=== PATIENT | female | born 1955 | race Caucasian/White ===

== ENCOUNTER 2018-06-15 15:53 | Outpatient (RCR) | payer MEDICARE, SELFPAY ==
[2018-06-15 21:26] LABS: ALT 26 U/L (12-78); AST 19 U/L (15-37); Albumin 3.1 g/dL (3.4-5.0); Alkaline Phosphatase 93 U/L (46-116); Anion Gap 8.1 mmol/L (3-11); BUN 20 mg/dL (7-18); Bilirubin, Total 0.1 mg/dL (0.2-1.0); CO2 27.9 mmol/L (21.0-32.0); CREATININE 1.12 mg/dL (0.55-1.02); Calcium 8.9 mg/dL (8.5-10.1); Chloride 105 mmol/L (98-107); Estimated GFR 48.82 (mL/min/1.73m2); Glucose 95 mg/dL (70-100); Potassium 4.4 mmol/L (3.5-5.1); Sodium 141 mmol/L (136-145); TSH (W/Ref FT4) 2.68 uIU/mL (0.358-3.74); Total Protein 6.2 g/dL (6.4-8.2)
[2018-06-15 22:04] LABS: Vitamin B12 377 pg/mL (193-986)
== END 2018-06-23 23:59 | disposition home or self-care (01) ==
LOC: NCHCN 15:53
PROVIDERS: PCP Nurse Practitioner Family; Visit Provider Nurse Practitioner Family
DX: F32.9 Major depressive disorder, single episode, unspecified (principal); K58.9 Irritable bowel syndrome, unspecified; I10 Essential (primary) hypertension; J32.9 Chronic sinusitis, unspecified; J30.9 Allergic rhinitis, unspecified; N28.9 Disorder of kidney and ureter, unspecified; J45.20 Mild intermittent asthma, uncomplicated; E66.9 Obesity, unspecified
CPT/HCPCS: 80053; 82607; 83735; 84443

== ENCOUNTER 2018-08-20 11:30 | Outpatient (CLI) | payer MEDICARE, BC, SELFPAY ==
--- NOTE | 2018-08-20 14:20 | DI.RAD_ITS ---
SYMPTOM/DIAGNOSIS: PNEUMONIA LLL, J18.9, COUGH, R05, ASTHMA, J45.20 PA AND LATERAL CHEST: The heart is normal in size. The lungs are clear. The mediastinal structures and pleura appear intact. CONCLUSION: Normal chest. No evidence of acute cardiopulmonary disease.
== END 2018-08-20 11:50 ==
PROVIDERS: PCP Nurse Practitioner Family; Visit Provider Nurse Practitioner Family
DX: R05 Cough (principal); J18.9 Pneumonia, unspecified organism; J45.20 Mild intermittent asthma, uncomplicated
CPT/HCPCS: 71046

== ENCOUNTER → 2018-10-11 09:59 | Outpatient (BNVA) | payer MEDICARE, BC, SELFPAY | PROVIDERS: PCP Nurse Practitioner Family; Referring Provider Nurse Practitioner Family; Visit Provider Student in an Organized Health Care Education/Training Program | DX: M75.101 Unspecified rotator cuff tear or rupture of right shoulder, not specified as traumatic (principal) | CPT/HCPCS: 99212; 99213 ==

== ENCOUNTER → 2018-11-15 14:08 | Outpatient (BNVA) | payer MEDICARE, BC, SELFPAY | PROVIDERS: PCP Nurse Practitioner Family; Referring Provider Nurse Practitioner Family; Visit Provider Student in an Organized Health Care Education/Training Program | DX: M75.101 Unspecified rotator cuff tear or rupture of right shoulder, not specified as traumatic (principal) | CPT/HCPCS: 20610; 99213; J1040 ==

== ENCOUNTER 2018-12-31 11:17 | Outpatient (REF) | payer MEDICARE, BC, SELFPAY ==
[2018-12-31 20:54] LABS: Abs Immature Grans 0.01 k/cumm (0.0-0.09); Absolute Basophil Count 0.02 k/cumm (0.0-0.2); Absolute Eosinophil Count 0.37 k/cumm (0.0-0.7); Absolute Lymphocyte Count 1.38 k/cumm (1.2-3.4); Absolute Monocyte Count 0.67 k/cumm (0.11-0.7); Absolute Neutrophil Count 2.94 k/cumm (1.2-6.7); Basophils % 0.4; Eosinophils % 6.9; HCT 36.3 % (36.0-46.0); HGB 11.2 g/dL (12.0-15.5); Immature Grans % 0.2; Lymphocytes % 25.6; Mean Corp. HGB Concentration 30.9 g/dL (32.0-36.0); Mean Corpuscular Hemoglobin 27.9 pg (27.0-33.0); Mean Corpuscular Volume 90.3 fL (80-95); Mean Platelet Volume 9.5 fL (8.0-11.0); Monocytes % 12.4; Neutrophils % 54.5; Platelet Count 317 x1000/uL (130-400); RBC 4.02 m/cumm (4.00-5.20); RBC Distribution Width 15.2 % (11.7-14.6); White Blood Cell Count 5.39 k/cumm (4.4-10.8)
[2018-12-31 21:15] LABS: Iron 51 ug/dL (50-175); Total Iron Binding Capacity 336 ug/dL (250-450); Transferrin Sat 15 % (15-50)
[2018-12-31 21:30] LABS: ALT 32 U/L (12-78); AST 23 U/L (15-37); Albumin 3.2 g/dL (3.4-5.0); Alkaline Phosphatase 82 U/L (46-116); Anion Gap 9.3 mmol/L (3-11); BUN 13 mg/dL (7-18); Bilirubin, Total 0.2 mg/dL (0.2-1.0); CO2 26.7 mmol/L (21.0-32.0); CREATININE 0.76 mg/dL (0.55-1.02); Calcium 8.6 mg/dL (8.5-10.1); Chloride 106 mmol/L (98-107); Ferritin 24 ng/mL (8-388); Glucose 106 mg/dL (70-100); Potassium 4.4 mmol/L (3.5-5.1); Sodium 142 mmol/L (136-145); TSH (W/Ref FT4) 2.78 uIU/mL (0.358-3.74); Total Protein 6.2 g/dL (6.4-8.2)
== END 2018-12-31 11:37 ==
LOC: NCHCN 11:17
PROVIDERS: PCP Nurse Practitioner Family; Visit Provider Nurse Practitioner Family
DX: R53.83 Other fatigue (principal); R42 Dizziness and giddiness
CPT/HCPCS: 80053; 82728; 83540; 83550; 84443; 85025

== ENCOUNTER 2019-01-18 12:27 | Outpatient (REF) | payer MEDICARE, BC, SELFPAY ==
--- NOTE | 2019-01-18 11:15 | PAPFT_PTH ---
PATIENT: Yuridia Craft LOC: N U#:[id number] AGE/SX: 63/F ROOM: RE01/18/[address]: Ruby Steward MD : [id number] BED: DIS: 01/18/2019 SPEC #: [id number] RECD: 01/18/19 13:02 STATUS: STEFANIE REMichelle #: [id number] SCARLET: 01/18/19 11:[address]: Ruby Steward DEPT: [facility] Cytology RECD BY: Nallely Loyola ENTERED: 01/18/19 13:02 SP TYPE: PAPFT OTHR DR: Meredith Feldman Tissues: 1 - CX/ENDOCX FOR PAP SMEARS Procedures: PAP THIN PREP/UVM Screening HPV DNA PROBE Comments: [id number]
== END 2019-01-18 12:47 ==
LOC: LBN 12:27
PROVIDERS: PCP Nurse Practitioner Family; Visit Provider Obstetrics & Gynecology
DX: Z12.4 Encounter for screening for malignant neoplasm of cervix (principal)
CPT/HCPCS: 88142; 87624

== ENCOUNTER → 2019-01-24 15:19 | Outpatient (BNVA) | payer MEDICARE, BC, SELFPAY | PROVIDERS: PCP Nurse Practitioner Family; Referring Provider Nurse Practitioner Family; Visit Provider Surgery | DX: D64.9 Anemia, unspecified (principal); I10 Essential (primary) hypertension | CPT/HCPCS: 99212; 99213 ==

== ENCOUNTER 2019-02-22 06:04 | Day surgery (SDC) | payer MEDICARE, BC, SELFPAY ==
[2019-02-22 06:24] VITALS: BP 125/82; PULSE 88; RESP 19; TEMP 36.8; O2SAT 97
--- NOTE | 2019-02-22 06:34 | COLE_ITS ---
Date of service: 02/22/19 Time of Service: 07:29 Colonoscopy Report Date of procedure: 02/22/19 Pre-op diagnosis general: Colon Cancer Screening and Anemia Post-op diagnosis procedure note: other (same and diverticulosis) Procedure: Colonoscopy Surgeon: Sintia Naik Anesthesia proc note operative: other (General/ ASA 2/Tricia Abreu CRNA) Estimated blood loss (mL): 0 Pathology: none sent Complications: None Disposition: same day Indications: Mrs. Craft is a pleasant 63 year old with chronic kidney disease and anemia who was seen in the office for a colonoscopy. Risks, benefits and complications have been reviewed. Complications include but are not limited to bleeding, pain, perforation, missed small lesion/polyp, sore throat, aspiration and adverse reaction to the medications. Questions were entertained and answered to their satisfaction and they wished to proceed. No guarantees were given or implied. Prep: Miralax/Dulcolax Procedure Start Time: :29 Procedure End Time: 07:49 Retraction Time: 12 minutes Findings: Mild sigmoid diverticulosis Procedure Description: After informed consent was obtained the patient was taken to the procedure room and placed in a left decubitous position. Monitors were applied and a time out was done. The patients name, date of , procedure, allergies to medications and metal in their body was reviewed. The patient was then sedated. Once sedated and comfortable a rectal exam was done. External exam was normal. Internal exam revealed a normal sphincter tone and no palpable masses. The scope was then introduced and retro-flexed. No internal hemorrhoids were i dentified. There were no masses or polyps noted in the rectum. The scope was then advanced to the cecum without difficulty. The TI and appendiceal orifice were identified. The prep was adequate. The scope was then slowly retracted over 12 minutes back into the rectum. There were mild sigmoid diverticulosis. The scope was removed and the patient was woken up and taken back to Same day surgery in stable condition. The patient tolerated the procedure well and there were no immediate complications. Follow up: The patient should follow up in 10 years unless they develop changes in bowel habits or other new gastrointestinal complaints.
--- NOTE | 2019-02-22 06:40 | W.PM.DSUDISC ---
Discharge Plan Disposition Patient Disposition: HOME Condition: Good Discharge Details Reason For Visit: Colonoscopy Attending Provider: Sintia Naik Primary Care Provider: Meredith Feldman Home Meds and New Rx's Prescriptions: Continued multivitamin [Daily Multi-Vitamin] tablet 1 tab PO DAILY RF: 0 meclizine 12.5 mg tablet 12.5 mg PO BID-TID PRNRF: 0 pantoprazole [Protonix] 40 mg tablet,delayed release (DR/EC) 40 mg PO DAILY Qty: 30 RF: 12 Flovent HFA 110 mcg/actuation HFA aerosol inhaler 2 puff IH BID PRNRF: 0 acetaminophen 325 MG tablet 325 mg PO PRN Qty: 2 RF: 0 lisinopril 30 MG tablet 30 mg PO DAILY AM RF: 0 fluoxetine 40 MG capsule 40 mg PO HS RF: 0 fexofenadine [Cherelle Allergy] 180 MG tablet 180 mg PO PRN PRNRF: 0 mometasone [Nasonex] 17 GM spray,non-aerosol 2 spray Intravesical PRN PRN (Reason: ALLERGIES) RF: 0 omeprazole 20 MG capsule,delayed release(DR/EC) 20 mg PO DAILY RF: 0 cyproheptadine 4 MG tablet 4 mg PO HS RF: 0 Discharge Instructions Instructions: Colonoscopy (DC), Diverticulosis (DC) Additional Instructions: Findings: Mild diverticulosis Follow up: 10 years Please call if you develop: fevers >101.5 Nausea or Vomiting Abdominal pain that is not transient DAY SURGERY UNIT POST COLONOSCOPY INSTRUCTIONS 1. Because there will be medication in your system for the next 24 hours, you may feel a little sleepy. Your coordination will be affected. Therefore: a. Do not drive or operate dangerous equipment for 24 hours. b. Do not drink alcohol beverages for 24 hours (not even beer). c. Plan to go home and rest for the day. 2. Generally there are no restrictions on your activity after a day or so has gone by, but you may feel a bit fatigued for a few days. 3 After you arrive home you may have a light meal and return to a normal diet as you can tolerate it without feeling sick to your stomach. 4. After surgery, you may feel pain or discomfort. This should be only transient, but if it persists please contact your doctor. 5. If there are any questions regarding the findings of your procedure, please feel free to contact your doctor. 6. If you are unable to contact your doctor with a problem, contact the hospital at [phone]. 7. Continue all your regular medications unless directed otherwise. I understand the above instructions and have no questions. Signature of Patient or Responsible Adult Escort Date/Time Name of Responsible Adult Escort Signature of Nurse Date/Time Stand Alone Forms: Vivien Arias (DSU) Activity:: Activity as Tolerated Diet:: high fiber diet Discharge Orders Discharge Orders: Discharge Order (Routine); Ordered 02/22/19 Ordered By: Sintia Naik DS: Diagnosis Discharge Diagnosis (1) S/P colonoscopy: Status: Acute (2) Diverticulosis: Status: Acute
[2019-02-22] MEDS: Lactated Ringers 1,000 ML 120 ML IV (06:47)
[2019-02-22 08:45] VITALS: BP 117/73; PULSE 77; RESP 16; TEMP 36.1; O2SAT 97
== END 2019-02-22 09:15 | disposition home or self-care (01) ==
PROVIDERS: PCP Nurse Practitioner Family; Visit Provider Surgery
PROC: 0DJD8ZZ Inspection of Lower Intestinal Tract, Via Natural or Artificial Opening Endoscopic (ICD-10-PCS; CPT 45378; principal; 2019-02-22 07:30)
DX: Z12.11 Encounter for screening for malignant neoplasm of colon (principal); N18.9 Chronic kidney disease, unspecified; D63.1 Anemia in chronic kidney disease; K57.30 Diverticulosis of large intestine without perforation or abscess without bleeding
CPT/HCPCS: G0121

== ENCOUNTER 2019-04-07 13:55 | Outpatient (CLI) | payer MEDICARE, BC, SELFPAY | END 2019-04-07 14:15 | PROVIDERS: PCP Nurse Practitioner Family; Visit Provider Obstetrics & Gynecology | DX: Z01.818 Encounter for other preprocedural examination (principal) ==

== ENCOUNTER 2019-04-21 12:06 | Outpatient (CLI) | payer MEDICARE, BC, SELFPAY ==
[2019-04-21 12:56] LABS: HCT 36.7 % (36.0-46.0); HGB 11.6 g/dL (12.0-15.5); Mean Corp. HGB Concentration 31.6 g/dL (32.0-36.0); Mean Corpuscular Hemoglobin 28.3 pg (27.0-33.0); Mean Corpuscular Volume 89.5 fL (80-95); Mean Platelet Volume 9.4 fL (8.0-11.0); Platelet Count 401 x1000/uL (130-400); RBC Distribution Width 14.7 % (11.7-14.6); White Blood Cell Count 7.67 k/cumm (4.4-10.8)
[2019-04-21 13:34] LABS: ALT 33 U/L (14-59); AST 18 U/L (15-37); Albumin 3.8 g/dL (3.4-5.0); Alkaline Phosphatase 107 U/L (46-116); Anion Gap 9.8 mmol/L (3-11); BUN 16 mg/dL (7-18); Bilirubin, Total 0.3 mg/dL (0.2-1.0); CO2 27.2 mmol/L (21.0-32.0); CREATININE 0.88 mg/dL (0.55-1.02); Chloride 103 mmol/L (98-107); Glucose 96 mg/dL (70-100); Potassium 4.5 mmol/L (3.5-5.1); Sodium 140 mmol/L (136-145)
== END 2019-04-21 12:26 ==
PROVIDERS: PCP Nurse Practitioner Family; Visit Provider Obstetrics & Gynecology
DX: Z01.818 Encounter for other preprocedural examination (principal); R69 Illness, unspecified
CPT/HCPCS: 36415; 80053; 85027; 86850; 86900; 86901

== ENCOUNTER 2019-04-27 08:01 | Observation (INO) | payer MEDICARE, BC, SELFPAY ==
[2019-04-27] VITALS (13 sets, daily range): BP systolic 97–154; BP diastolic 53–98; PULSE 67–98; RESP 13–20; TEMP 36.2–37; O2SAT 94–100
[2019-04-27] MEDS: Lactated Ringers 1,000 ML 125 ML IV ×3 (09:06→15:50)
[2019-04-27] MEDS: LIDOCAINE/D5W 2,000 MG/500 ML BAG 45 MG IV (10:05)
[2019-04-27] MEDS: CLINDAMYCIN 900 MG/50 ML BAG 50 MG IVPB (10:15)
--- NOTE | 2019-04-27 12:06 | W.PM.HP.N ---
Date of service: 04/27/19 Time of Service: 09:06 Assessment and Plan (1) Cystocele with rectocele: Current visit: Yes Status: Acute 63 yo female presurgical for anterior /posterior colporraphy r/b/a have been discussed including risks of bleeding, infection, injury to bowel or bladder consents signed all questions asked and answered History of Present Illness Chief Complaint: pelvic prolapse Narrative: 63 yo female here for surgery for rectocele and cystocele Review of Systems Review of Systems All systems reviewed & are unremarkable except as noted in HPI and below PFSH Medical History Anemia (Acute) Asthma (Chronic) Cataract (Chronic) Diverticulosis (Acute ~02/22/19) Dizziness (Acute) Fatigue (Acute) GERD (gastroesophageal reflux disease) (Chronic) History of foot fracture (Acute) ORIF with pin History of substance abuse (Chronic) Hypertension (Chronic) IBS (irritable bowel syndrome) (Chronic) Major depression (Chronic) 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) Nephropathy (Chronic) Obesity (Chronic) Pneumonia (Resolved) PTSD (post-traumatic stress disorder) (Chronic) Syncope and collapse (Acute) Surgical History H/O oophorectomy (Acute) History of carpal tunnel release (Acute) History of colonoscopy (Chronic) History of foot surgery (Acute) hammer toe repair History of sinus surgery (Acute) S/P colonoscopy (Acute ~02/22/19) S/P excision of lipoma (Acute) Status post trigger finger release (Acute) Family History Father Cancer Aunt Cancer Mother Heart disease Maternal Cousin Diabetes Social History Smoking/Tobacco Use Status: Never Alcohol Intake: never Drug use: Never Substance use type: does not use Do you feel safe at home: Yes Do you feel safe in your relationship?: Yes Female Reproductive History Menstrual Menopause type: natural Meds Home Medications Medication Instructions Recorded Confirmed Type fexofenadine [Cherelle Allergy] 180 mg PO PRN PRN 12/04/15 04/27/19 History fluoxetine [Prozac] 40 mg PO HS 12/04/15 04/27/19 History lisinopril 30 mg PO DAILY AM 12/04/15 04/27/19 History mometasone [Nasonex] 2 spray INTRANASAL PRN PRN 12/04/15 04/27/19 History acetaminophen 325 mg PO PRN #2 12/18/15 04/27/19 History cyproheptadine 4 mg PO HS 02/08/18 04/27/19 History meclizine 12.5 mg tablet 12.5 mg PO BID-TID PRN 01/18/19 04/27/19 History multivitamin 1 tab PO DAILY 01/18/19 04/27/19 History fluticasone propionate 110 2 puff IH BID PRN 01/24/19 04/27/19 History mcg/actuation HFA aerosol inhaler pantoprazole 40 mg tablet,delayed 40 mg PO DAILY #30 tab 01/24/19 04/27/19 Rx release Allergies Allergy/AdvReac Type Severity Reaction Status Date / Time cefaclor [From Ceclor] Allergy Severe Anaphylaxsi Verified 04/13/19 14:58 s cefuroxime axetil Allergy Severe Anaphylaxsi Verified 04/13/19 14:58 [From Ceftin] s Sulfa (Sulfonamide Allergy Intermediate Hives Verified 04/13/19 14:58 Antibiotics) Exam Narrative Exam Narrative: alert, awake cooperative no acute distress Resp Effort & Inspection: normal respiratory effort Auscultation: clear to auscultation bilaterally Cardio Rate: regular rate Rhythm: regular rhythm Heart Sounds: S1 normal and S2 normal GI Inspection: normal to inspection Palpation: soft and no hepatosplenomegaly External Female Exam: external appearance normal Speculum Exam - Vagina: atrophic vaginal mucosa Speculum Exam - Cervix: normal appearance of the cervix Bimanual Exam- Vagina & Uterus: normal bimanual exam Bimanual Exam- Adnexa, other: normal adnexae, rectocele and cystocele Results Last Vital Signs Temp 36.2 C L 04/27/19 11:53 Pulse 88 04/27/19 11:53 Resp 16 04/27/19 11:53 BP 122/98 H 04/27/19 11:53 Pulse Ox 96 04/27/19 11:53
[2019-04-27] MEDS: HYDROmorphone 2 MG/ML VIAL IVP (12:35)
[2019-04-27] MEDS: Normal Saline Flush 10 ML SYR IV (12:35)
--- NOTE | 2019-04-27 13:05 | ROE_ITS ---
REPORT OF OPERATIVE PROCEDURE DATE OF PROCEDURE April 27, 2019 PREOPERATIVE DIAGNOSES Rectocele and cystocele. POSTOPERATIVE DIAGNOSES Enterocele and rectocele. PROCEDURE Enterocele repair and posterior colporrhaphy. SURGEON Ruby Steward M.D. DIRECTOR OF PATIENT FINANCIAL SERVICES Delmy Anaya M.D. ANESTHESIA General. COMPLICATIONS None. ESTIMATED BLOOD LOSS 100 cc. FLUIDS 1000 cc LR. FINDINGS A Fourth-degree rectocele and enterocele. No cystocele present upon examination under anesthesia. PROCEDURE DESCRIPTION The patient was taken to the Operating Room, where she was properly identified. She was then placed on the Operating Table in a dorsal supine position. General anesthesia was induced without difficulty. Then, she was placed in the dorsal lithotomy position, and prepped and draped in a normal sterile fashion. A Nicole catheter was placed. A formal timeout procedure was then performed confirming patient and procedure. Nicole cath was in situ and her SCDs boots were on. A posterior weighted speculum was then placed in the vagina. There was no evidence of cystocele, so attention was turned to the rectocele portion of the procedure. Using 0.25% Marcaine with epinephrine, a midline subcutaneous injection to the level of the cervix was performed. I transverse incision was made with the scalpel along the hymenal ring. The vaginal epithelium was undermined and opened in the midline to the level above the defect. Allis clamps were used to support the edges. The vagina was then dissected away at the apex of the incision, there was an enterocele sac. Once the complete dissection was performed bilaterally, the enterocele sac was closed with a purse string suture of #2-0 Vicryl x2. The puborectal fascia was reapproximated with two layers of #2-0 Vicryl in an interrupted fashion. The vaginal posterior epithelium was trimmed and the vagina was closed with #0-Vicryl in interrupted fashion. A zrublk-sm-fgjje suture of #0- Vicryl was placed to support the peroneal body and the skin was closed in a subcuticular fashion. Hemostasis was confirmed. The Nicloe was left in situ. The vaginal pack was impregnated with Premarin cream and placed. The patient was awakened and taken to the Recovery Room in stable condition. Sponge, lap, needle and instrument counts were correct x2.
--- NOTE | 2019-04-27 14:02 | NUR.NOTE ---
arrived in room 306 via stretcher from PACU.Pt sleepy but arouses easily. IV of LR in fusing at 125 cc/hr via L periph line in L hand, 2nd IV site present in l antecubital space.Kanika pad in place scant drainage present. Nicole cath present and SCD's bilaterally. Pt has a dry hacking cough , states it feels like I have something stuck in there, sips of water given, pt states that it helps.denies any pain at present.Nursing Note:
[2019-04-27] MEDS: Ketorolac 30 MG/ML VIAL IVP ×2 (15:31→21:44)
[2019-04-27] MEDS: oxyCODONE 5 mg/Acetaminophen 325 mg TAB PO ×2 (15:32→21:50)
[2019-04-27] MEDS: Acetaminophen 500 MG TAB PO (15:32)
[2019-04-27] MEDS: Docusate Sodium 100 MG CAP PO (21:01)
[2019-04-27] MEDS: Cyproheptadine 4 MG TAB PO (21:43)
[2019-04-28] VITALS: BP 108/76; PULSE 71; RESP 18; TEMP 37
[2019-04-28] MEDS: Ketorolac 30 MG/ML VIAL IVP ×2 (03:58→10:39)
[2019-04-28 04:17] VITALS: BP 102/66; PULSE 64; TEMP 36.5
[2019-04-28] MEDS: oxyCODONE 5 mg/Acetaminophen 325 mg TAB PO ×2 (04:46→08:28)
[2019-04-28] MEDS: Lactated Ringers 1,000 ML 125 ML IV (05:47)
[2019-04-28 07:30] VITALS: BP 114/64; PULSE 69; RESP 16; TEMP 36.9; O2SAT 96
[2019-04-28] MEDS: Lisinopril 10 MG TAB 30 MG PO (08:22)
[2019-04-28] MEDS: Pantoprazole 40 MG TABCR PO (08:24)
[2019-04-28] MEDS: Docusate Sodium 100 MG CAP PO (08:24)
[2019-04-28] MEDS: Multivitamin TAB 1 TAB PO (08:25)
[2019-04-28] MEDS: Normal Saline Flush 10 ML SYR IV (10:45)
--- NOTE | 2019-04-28 14:16 | DSE_ITS ---
Date of service: 04/28/19 Time of Service: 14:16 DS: Diagnosis Discharge Diagnosis (1) Cystocele with rectocele: Status: Acute (2) Enterocele: Status: Acute Discharge Plan Disposition Patient Disposition: HOME Condition: Stable Discharge Details Admit Date/Time: 04/27/19 08:01 Admit Provider: Ruby Steward Attending Provider: Ruby Steward [facility]: Admited observation after Posterior and Enterocele repair without complication. Postoperative course Day #1 vaginal pack and lpummer removed and she was able to void on own. No bleeding. Pain well controlled and tolerating regular diet Discharge home in stable condition Home Meds and New Rx's Prescriptions: New oxycodone-acetaminophen 5-325 mg Tablet 1 tab PO Q4H PRN PRNQty: 10 RF: 0 docusate sodium [Colace] 100 mg Capsule 100 mg PO BID Qty: 90 RF: 1 Continued multivitamin [Daily Multi-Vitamin] tablet 1 tab PO DAILY RF: 0 meclizine 12.5 mg tablet 12.5 mg PO BID-TID PRNRF: 0 pantoprazole [Protonix] 40 mg tablet,delayed release (DR/EC) 40 mg PO DAILY Qty: 30 RF: 12 Flovent HFA 110 mcg/actuation HFA aerosol inhaler 2 puff IH BID PRNRF: 0 acetaminophen 325 MG tablet 325 mg PO PRN Qty: 2 RF: 0 lisinopril 30 MG tablet 30 mg PO DAILY AM RF: 0 fluoxetine [Prozac] 40 MG capsule 40 mg PO HS RF: 0 fexofenadine [Cherelle Allergy] 180 MG tablet 180 mg PO PRN PRNRF: 0 mometasone [Nasonex] 17 GM spray,non-aerosol 2 spray intranasal PRN PRN (Reason: ALLERGIES) RF: 0 cyproheptadine 4 MG tablet 4 mg PO HS RF: 0 Discharge Instructions Stand Alone Forms: DSU Post Gynecology Surgery, DSU Post op Instructions Referrals: Ruby Steward [ [facility] STAFF PHYSICIAN] - 05/12/19 1:20 pm (2 weeks) Activity:: Activity as Tolerated Equipment/Supplies:: No Equipment Needed Diet:: As Tolerated Discharge Orders Discharge Orders: Discharge Order (Routine); Ordered 04/28/19 Ordered By: Ruby Steward DS: Summary Status at Discharge Cognitive/behavioral status at discharge: A+O stable Functional status at discharge: independent ambulation Time Spent with Patient Greater than 30 minutes Exam Narrative Exam Narrative: a=o pain controlled with po pain med Chest Chest: normal inspection of the chest Resp Effort & Inspection: normal respiratory effort Auscultation: clear to auscultation bilaterally GI Inspection: normal to inspection Percussion: normal to percussion Auscultation: normal bowel sounds Other: minimal vaginal bleeding voiding on own DS: Data Vitals/I&O Vitals and I&O: Vital Signs Temperature 36.9 C 04/28/19 07:30 Temperature Source Oral 04/28/19 07:30 Pulse 69 04/28/19 07:30 Pulse Rhythm Regular 04/28/19 07:30 Respiratory Rate 16 04/28/19 07:30 Respiratory Effort 04/28/19 07:30 Respiratory Depth Normal 04/28/19 07:30 Respiratory Pattern Normal 04/28/19 07:30 Blood Pressure 114/64 04/28/19 07:30 Pulse Oximetry 96 04/28/19 07:30 Respiratory End-tidal CO2 44 04/27/19 12:47 Oxygen Delivery Method Room Air 04/28/19 07:30 Oxygen Flow Rate 0 04/28/19 07:30 Pain Level 6 04/28/19 10:39 Intake & Output 04/27/19 04/28/19 04/28/19 23:59 11:59 23:59 Intake Total 1812.5 / 2862.5 Output Total 300 / 500 700 / 700 Balance 1512.5 / 2362.5 -700 / -700 Intake: IV 1812.5 / 2862.5 Output: Urine 300 / 400 700 / 700 Other: Urine Color Pale Pale Yellow Yellow Urine Appearance Clear Clear Comment NOT EMPTIED IN PACU Emesis Description [facility] History Anemia (Acute) Asthma (Chronic) Cataract (Chronic) Diverticulosis (Acute ~02/22/19) Dizziness (Acute) Fatigue (Acute) GERD (gastroesophageal reflux disease) (Chronic) History of foot fracture (Acute) ORIF with pin History of substance abuse (Chronic) Hypertension (Chronic) IBS (irritable bowel syndrome) (Chronic) Major depression (Chronic) 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) Nephropathy (Chronic) Obesity (Chronic) Pneumonia (Resolved) PTSD (post-traumatic stress disorder) (Chronic) Syncope and collapse (Acute) Surgical History H/O oophorectomy (Acute) History of carpal tunnel release (Acute) History of colonoscopy (Chronic) History of foot surgery (Acute) hammer toe repair History of sinus surgery (Acute) S/P colonoscopy (Acute ~02/22/19) S/P excision of lipoma (Acute) Status post trigger finger release (Acute) Family History Father Cancer Aunt Cancer Mother Heart disease Maternal Cousin Diabetes Social History Smoking/Tobacco Use Status: Never Alcohol Intake: never Drug use: Never Substance use type: does not use Do you feel safe at home: Yes Do you feel safe in your relationship?: Yes Female Reproductive History Menstrual Menopause type: natural
== END 2019-04-28 14:45 | disposition home or self-care (01) ==
LOC: PDS 12:05 → OBS 12:06
PROVIDERS: Admitting Provider Obstetrics & Gynecology; PCP Nurse Practitioner Family; Visit Provider Obstetrics & Gynecology
PROC: 0JQC0ZZ Repair Pelvic Region Subcutaneous Tissue and Fascia, Open Approach (ICD-10-PCS; CPT 57260; principal; 2019-04-27 09:00)
DX: N81.6 Rectocele (principal); N81.5 Vaginal enterocele; K21.9 Gastro-esophageal reflux disease without esophagitis; I10 Essential (primary) hypertension; F32.9 Major depressive disorder, single episode, unspecified
CPT/HCPCS: 57250; 57268; 99239; NC; J0131; J1100; J1200; J1885; J2001; J2250; J2405; J3010

== ENCOUNTER 2019-06-17 18:02 | Outpatient (REF) | payer MEDICARE, BC, SELFPAY ==
[2019-06-17 18:06] LABS: Bilirubin Negative (Negative); Blood Small (Negative); Clarity Clear (Clear); Glucose Negative (Negative); Ketones Negative (Negative); Leukocyte Esterase Trace (Negative); Nitrite Negative (Negative); Urobilinogen 0.2 EU/dL (Up TO 0.2)
[2019-06-17 18:51] LABS: Bacteria Moderate HPF (Negative); C & S Indicated? C&S Done As Ordered; Casts Negative LPF (Negative); Crystals Negative HPF (Negative); Epithelial Cells Few HPF (Negative); Mucus Negative (Negative); Other Cells Negative (Negative)
== END 2019-06-17 18:22 ==
LOC: LBN 18:02
PROVIDERS: PCP Nurse Practitioner Family; Visit Provider Obstetrics & Gynecology
DX: N39.41 Urge incontinence (principal); N81.10 Cystocele, unspecified; N81.6 Rectocele
CPT/HCPCS: 87077; 81003; 81015; 87086

== ENCOUNTER 2019-06-30 03:02 | Outpatient (CLI) | payer MEDICARE, BC, SELFPAY ==
--- NOTE | 2019-06-30 11:34 | DI.MAMMO_ITS ---
EXAM: MG MAMMO SCREENING CLINICAL HISTORY: screening Z12.31 TECHNIQUE: Mammograms were interpreted according to the usual protocol including computer analysis w [employer] CAD system, tomosynthesis and C-view imaging. COMPARISON: April 2017 FINDINGS: The breasts are heterogeneously dense with multiple areas of markedly asymmetric radiodensity. Ross rison with previous examinations including April 2017 shows no gross interval change in appearanc e. There are coarse macrocalcifications of both breasts, no suspicious clumped microcalcification se en. IMPRESSION: No specific evidence of malignancy at this time. Routine screening examinations are suggested at year ly intervals in this age group according to the ACS ACR guidelines. Category 1, breast density catego ry C. BI-RADS Cat 1 - Negative Breast Density - Category C - Heterogeneously dense
== END 2019-06-30 03:22 ==
PROVIDERS: PCP Nurse Practitioner Family; Visit Provider Obstetrics & Gynecology
DX: Z12.31 Encounter for screening mammogram for malignant neoplasm of breast (principal)
CPT/HCPCS: 77063; 77067

== ENCOUNTER 2019-07-06 06:57 | Day surgery (SDC) | payer MEDICARE, BC, SELFPAY ==
[2019-07-06] VITALS (8 sets, daily range): BP systolic 146–190; BP diastolic 66–92; PULSE 70–83; RESP 16–20; TEMP 36.1–36.7; O2SAT 94–99
--- NOTE | 2019-07-06 07:32 | W.PREOPHP ---
Documented by User: Tsering Shakeel 07/06/19 07:40 Assessment and Plan Assessment and plan (1) Right rotator cuff tear: Status: Acute (2) Bilateral acromioclavicular joint arthritis: Status: Acute Assessment and plan: Examination was completed by Dr. Hurley. Plan: Educated patient on surgery covering surgical technique, recovery process, benefits and risks including but not limited to risk of infection, blood clot, damage to soft tissue/blood vessels/nerves in detail. After discussion patient gives verbal understanding of risks and elects to proceed with scheduling surgery. Patient had opportunity to have questions answered to their satisfaction. Patient will continue to be scheduled for right arthroscopic RTC repair and associated surgical procedures if needed with Dr. Hurley. History of Present Illness Narrative: Ms. Craft is a 64-year-old [id number] female presents for scheduled right arthroscopic rotator cuff repair with Dr. Hurley. She has been seen in clinic several times and has previously scheduled surgery on two occasions. Unfortunately, she canceled surgery due to her 's health. Patient has been having right shoulder pain for over two years. Pain is located along superior lateral aspect of her right shoulder. She also reports decreased strength of her right arm from restricting the use of her arm due to pain. Pain is aggravated when trying to last picker her grandson, getting dressed, putting dishes away from the bottom shelf of her upper cabinets and when laying on her side. Patient reports that she frequently wakes up in the middle the night due to pain if she is rolling her right shoulder. She has been adapting activity by sleeping on her back, using her left arm to last picker her grandchild and adapting how she gets dressed. Patient has also received steroid injections in orthopedic clinic. She recalls the first injection provided significant pain relief but unfortunately the additional injection did not. Previously she had attended physical therapy without symptomatic improvement. Due to discomfort patient has not continued with PT recommended exercises. Patient has been managing symptoms at home by taking Tylenol twice daily which helps to slightly reduce as well as occasionally apply massage over her shoulder.Due to her symptoms she was offered surgery and elected to proceed. Review of Systems Cardiovascular Cardiovascular: Denies chest pain, Denies dyspnea and Denies dyspnea on exertion Respiratory Respiratory: Denies dyspnea and Denies dyspnea on exertion FORMERLY [facility], LATER [facility] Medical History (Updated 07/06/19 @ 07:24 by Diane Lr) Anemia (Acute) Asthma (Chronic) Cataract (Chronic) Diverticulosis (Acute ~02/22/19) Dizziness (Acute) Fatigue (Acute) GERD (gastroesophageal reflux disease) (Chronic) History of cystocele (Acute) repair History of foot fracture (Acute) ORIF with pin History of substance abuse (Chronic) Hypertension (Chronic) IBS (irritable bowel syndrome) (Chronic) Major depression (Chronic) 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) Nephropathy (Chronic) Obesity (Chronic) Pneumonia (Resolved) PTSD (post-traumatic stress disorder) (Chronic) Syncope and collapse (Acute) Surgical History H/O oophorectomy (Acute) History of carpal tunnel release (Acute) History of colonoscopy (Chronic) History of foot surgery (Acute) hammer toe repair History of sinus surgery (Acute) S/P colonoscopy (Acute ~02/22/19) S/P excision of lipoma (Acute) Status post trigger finger release (Acute) Social History (Updated 06/17/19 @ 14:44 by Wen Patino RN) Smoking/Tobacco Use Status: Never Alcohol Intake: never Drug use: Never Substance use type: does not use Seatbelt use: always Do you feel safe at home: Yes Do you feel safe in your relationship?: Yes Female Reproductive History Menstrual Menopause type: natural Meds Home Medications and Allergies Home Medications Medication Instructions Recorded Confirmed Type fexofenadine [Cherelle Allergy] 180 mg PO PRN PRN 12/04/15 07/06/19 History fluoxetine [Prozac] 40 mg PO HS 12/04/15 07/06/19 History lisinopril 30 mg PO DAILY AM 12/04/15 07/06/19 History mometasone [Nasonex] 2 spray INTRANASAL PRN PRN 12/04/15 07/06/19 History acetaminophen 325 mg PO PRN #2 12/18/15 07/06/19 History cyproheptadine 4 mg PO HS 02/08/18 07/06/19 History meclizine 12.5 mg tablet 12.5 mg PO BID-TID PRN 01/18/19 07/06/19 History multivitamin 1 tab PO DAILY 01/18/19 07/06/19 History fluticasone propionate 110 2 puff IH BID PRN 01/24/19 07/06/19 History mcg/actuation HFA aerosol inhaler pantoprazole 40 mg tablet,delayed 40 mg PO DAILY #30 tab 01/24/19 07/06/19 Rx release docusate sodium [Colace] 100 mg PO BID #90 cap 04/28/19 07/06/19 Rx Allergies Allergy/AdvReac Type Severity Reaction Status Date / Time cefaclor [From Ceclor] Allergy Severe Anaphylaxsi Verified 07/06/19 07:18 s cefuroxime axetil Allergy Severe Anaphylaxsi Verified 07/06/19 07:18 [From Ceftin] s Sulfa (Sulfonamide Allergy Intermediate Hives Verified 07/06/19 07:18 Antibiotics) Exam Const General: cooperative and healthy appearing Resp Effort & Inspection: normal respiratory effort, able to speak in complete sentences and no audible wheezes Auscultation: clear to auscultation bilaterally, no rales, no rhonchi and no wheezes Cardio Heart Sounds: S1 normal, S2 normal and no murmurs Documented by User: Sina Hurley MD 07/06/19 09:26 [facility] LAT[facility] Medical History (Updated 07/06/19 @ 07:24 by Diane Lr) Anemia (Acute) Asthma (Chronic) Cataract (Chronic) Diverticulosis (Acute ~02/22/19) Dizziness (Acute) Fatigue (Acute) GERD (gastroesophageal reflux disease) (Chronic) History of cystocele (Acute) repair History of foot fracture (Acute) ORIF with pin History of substance abuse (Chronic) Hypertension (Chronic) IBS (irritable bowel syndrome) (Chronic) Major depression (Chronic) 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) Nephropathy (Chronic) Obesity (Chronic) Pneumonia (Resolved) PTSD (post-traumatic stress disorder) (Chronic) Syncope and collapse (Acute) Surgical History H/O oophorectomy (Acute) History of carpal tunnel release (Acute) History of colonoscopy (Chronic) History of foot surgery (Acute) hammer toe repair History of sinus surgery (Acute) S/P colonoscopy (Acute ~02/22/19) S/P excision of lipoma (Acute) Status post trigger finger release (Acute) Social History (Updated 06/17/19 @ 14:44 by Wen Patino RN) Smoking/Tobacco Use Status: Never Alcohol Intake: never Drug use: Never Substance use type: does not use Seatbelt use: always Do you feel safe at home: Yes Do you feel safe in your relationship?: Yes Meds Home Medications and Allergies Home Medications Medication Instructions Recorded Confirmed Type fexofenadine [Cherelle Allergy] 180 mg PO PRN PRN 12/04/15 07/06/19 History fluoxetine [Prozac] 40 mg PO HS 12/04/15 07/06/19 History lisinopril 30 mg PO DAILY AM 12/04/15 07/06/19 History mometasone [Nasonex] 2 spray INTRANASAL PRN PRN 12/04/15 07/06/19 History acetaminophen 325 mg PO PRN #2 12/18/15 07/06/19 History cyproheptadine 4 mg PO HS 02/08/18 07/06/19 History meclizine 12.5 mg tablet 12.5 mg PO BID-TID PRN 01/18/19 07/06/19 History multivitamin 1 tab PO DAILY 01/18/19 07/06/19 History fluticasone propionate 110 2 puff IH BID PRN 01/24/19 07/06/19 History mcg/actuation HFA aerosol inhaler pantoprazole 40 mg tablet,delayed 40 mg PO DAILY #30 tab 01/24/19 07/06/19 Rx release docusate sodium [Colace] 100 mg PO BID #90 cap 04/28/19 07/06/19 Rx Allergies Allergy/AdvReac Type Severity Reaction Status Date / Time cefaclor [From Ceclor] Allergy Severe Anaphylaxsi Verified 07/06/19 07:18 s cefuroxime axetil Allergy Severe Anaphylaxsi Verified 07/06/19 07:18 [From Ceftin] s Sulfa (Sulfonamide Allergy Intermediate Hives Verified 07/06/19 07:18 Antibiotics)
[2019-07-06] MEDS: Lactated Ringers 1,000 ML 80 ML IV ×2 (07:55→12:30)
[2019-07-06] MEDS: Bupivacaine 0.5% Pres-Free 30 ML VIAL (08:50)
[2019-07-06] MEDS: Bupivacaine LIPOSOME/PF 133 MG/10 ML VIAL IJ (08:50)
--- NOTE | 2019-07-06 09:57 | W.PM.DSUDISC ---
Documented by User: Tsering Beckford 07/06/19 10:04 Discharge Plan Disposition Patient Disposition: HOME Condition: Good Discharge Details Reason For Visit: Right rotator cuff tear; Right AC joint arthritis Attending Provider: Sina Hurley Primary Care Provider: Meredith Feldman Home Meds and New Rx's Prescriptions: New acetaminophen 500 mg tablet 500 mg PO Q6H PRN (Reason: pain) Qty: 60 RF: 2 ibuprofen 600 mg tablet 600 mg PO TID PRN (Reason: pain) Qty: 60 RF: 2 oxycodone 5 mg tablet 5 mg PO Q6H PRN (Reason: severe post-operative pain) Qty: 15 RF: 0 Continued multivitamin [Daily Multi-Vitamin] tablet 1 tab PO DAILY RF: 0 meclizine 12.5 mg tablet 12.5 mg PO BID-TID PRNRF: 0 pantoprazole [Protonix] 40 mg tablet,delayed release (DR/EC) 40 mg PO DAILY Qty: 30 RF: 12 Flovent HFA 110 mcg/actuation HFA aerosol inhaler 2 puff IH BID PRNRF: 0 lisinopril 30 MG tablet 30 mg PO DAILY AM RF: 0 fluoxetine [Prozac] 40 MG capsule 40 mg PO HS RF: 0 fexofenadine [Cherelle Allergy] 180 MG tablet 180 mg PO PRN PRNRF: 0 mometasone [Nasonex] 17 GM spray,non-aerosol 2 spray intranasal PRN PRN (Reason: ALLERGIES) RF: 0 cyproheptadine 4 MG tablet 4 mg PO HS RF: 0 docusate sodium [Colace] 100 mg Capsule 100 mg PO BID Qty: 90 RF: 1 Discontinued acetaminophen 325 MG tablet 325 mg PO PRN Qty: 2 RF: 0 Discharge Instructions Stand Alone Forms: Anes.Nerve Block Instructions, Mei Montanez w/RCR, DSU Post op Instructions, Vivien Arias (DSU) Referrals: Sina Hurley MD [ [facility] STAFF PHYSICIAN] - Equipment/Supplies: Sling Activity:: Activity as Tolerated Remove Dressings/Wound Care:: 72 hours Shower/Bathe:: 72 hours Diet:: As Tolerated Discharge Orders Discharge Orders: Discharge Order (Routine); Ordered 07/06/19 Ordered By: Tsering Beckford Discharge Data Discharge Date/Time-TO BE ENTERED AT DEPARTURE: 07/06/19 15:54 DS: Diagnosis Discharge Diagnosis (1) Right rotator cuff tear: Status: Chronic (2) Bilateral acromioclavicular joint arthritis: Status: Chronic Documented by User: Sina Hurley MD 07/06/19 17:44 Discharge Plan Disposition Patient Disposition: HOME Condition: Good Discharge Details Reason For Visit: Right rotator cuff tear; Right AC joint arthritis Attending Provider: Sina Hurley Primary Care Provider: Meredith Feldman Home Meds and New Rx's Prescriptions: New acetaminophen 500 mg tablet 500 mg PO Q6H PRN (Reason: pain) Qty: 60 RF: 2 ibuprofen 600 mg tablet 600 mg PO TID PRN (Reason: pain) Qty: 60 RF: 2 oxycodone 5 mg tablet 5 mg PO Q6H PRN (Reason: severe post-operative pain) Qty: 15 RF: 0 Continued multivitamin [Daily Multi-Vitamin] tablet 1 tab PO DAILY RF: 0 meclizine 12.5 mg tablet 12.5 mg PO BID-TID PRNRF: 0 pantoprazole [Protonix] 40 mg tablet,delayed release (DR/EC) 40 mg PO DAILY Qty: 30 RF: 12 Flovent HFA 110 mcg/actuation HFA aerosol inhaler 2 puff IH BID PRNRF: 0 lisinopril 30 MG tablet 30 mg PO DAILY AM RF: 0 fluoxetine [Prozac] 40 MG capsule 40 mg PO HS RF: 0 fexofenadine [Cherelle Allergy] 180 MG tablet 180 mg PO PRN PRNRF: 0 mometasone [Nasonex] 17 GM spray,non-aerosol 2 spray intranasal PRN PRN (Reason: ALLERGIES) RF: 0 cyproheptadine 4 MG tablet 4 mg PO HS RF: 0 docusate sodium [Colace] 100 mg Capsule 100 mg PO BID Qty: 90 RF: 1 Discontinued acetaminophen 325 MG tablet 325 mg PO PRN Qty: 2 RF: 0 Discharge Instructions Stand Alone Forms: Anes.Nerve Block Instructions, Mei hall/AMANDA, DSU Post op Instructions, Vivien Arias (DSU) Referrals: Sina Hurley MD [ [facility] STAFF PHYSICIAN] - Equipment/Supplies: Sling Activity:: Activity as Tolerated Remove Dressings/Wound Care:: 72 hours Shower/Bathe:: 72 hours Diet:: As Tolerated Discharge Orders Discharge Orders: Discharge Order (Routine); Ordered 07/06/19 Ordered By: Tsering Beckford Discharge Data Discharge Date/Time-TO BE ENTERED AT DEPARTURE: 07/06/19 15:54
[2019-07-06] MEDS: CLINDAMYCIN 600 MG/50 ML BAG 100 MG IVPB (10:48)
[2019-07-06] MEDS: EPINEPHrine 1 MG/ML AMP pres-free (11:31)
--- NOTE | 2019-07-06 15:00 | W.PM.OP ---
Date of service: 07/06/19 Time of Service: 13:00 Operative Note Operative Note DATE OF PROCEDURE: 07/06/19 PRE-OP DIAGNOSIS: Right Rotator Cuff Tear, Right Biceps Tendinitis, Right AC Arthritis POST-OP DIAGNOSIS: same PROCEDURE: - Mini-Open Distal Clavicle Excision - Arthroscopic Rotator Cuff Repair - Biceps Tenotomy - Subacromial Debridement with Acromioplasty SURGEON: Sina Hurley TRADING ASSISTANT: Tsering Beckford ANESTHESIA: GETA and regional ESTIMATED BLOOD LOSS: 0 PATHOLOGY: none sent COMPLICATIONS: None Patient was transported to: PACU Patient's condition: stable Indications: I have seen Yuridia in clinic for a painful shoulder. Pathology was confirmed based on MRI and exam findings. Nonoperative measures were exhausted but disability and pain persisted. I discussed shoulder arthroscopy and procedures. I reviewed the risks of the procedures to include, but not limited to, bleeding, infection, pain, stiffness, damage to nerves or vessels, recurrence, hardware failure, blood clot. Despite these risks, the patient elected to proceed. Findings: There were signs of arthrosis of the distal clavicle; a 1cm wedge was resected A diagnostic arthroscopy was performed with the following findings: Articular Side - Glenohumeral Joint: Some Grade I/II central glenoid changes. - Labrum: Fraying of the labrum from 12 to 3 o'clock. - Cuff: Partial tearing of the upper subscapularis, complete tear involving most of supraspinatus and infraspinatus. - Biceps: Inflammatory changes throughout intraarticular portion. Subacromial Side - Bursal: Thickened bursa - Rotator Cuff: Complete supra and infra tear - Anterolateral spur Procedure Description: Yuridia was greeted in the preoperative holding area where the correct side was identified and marked. The consent was reviewed with the patient and signed. The history and physical was updated. All questions were answered. Yuridia was taken back to the PACU for administration of an intrascalene nerve block. Yuridia was then taken to the operating room. The patient was placed into the supine position on the operating room table. A general anesthetic was administered. Yuridia was then positioned in the beach chair position. All bony prominences were well padded. The head was placed in a foam cigar head puncher in a neutral position. Prophylactic antibiotics in the form of clindamycin were administered. The right arm/shoulder was then prepped with Chloraprep and draped in a standard fashion with stockinette and shoulder drape. A timeout to confirm correct identity, side and site, procedure, allergies, anesthesia, and medical concerns was performed. The arm was placed into a pneumatic vanegas, [id number]. The distal clavicle was approached through a 2 and half centimeter incision within Klaus's lines. This was made overlying the AC joint. The skin was incised sharply. The deeper tissues dissected with electrocautery. The clavipectoral fascia was identified and incised longitudinally off of the distal clavicle and onto the acromion. This was reflected subperiosteally to expose the distal clavicle and the AC joint. With adequate exposure a 1 cm bony resection was made using an oscillating saw. This is angled posteriorly to avoid any posterior impingement. Once it was fully resected, it was inspected to make sure it is of adequate width. A rasp was used to smooth the bony edges inferiorly and posteriorly primarily. A small amount of bone wax was placed on the end of the distal clavicle. The wound was thoroughly irrigated. There is no active bleeding. The clavipectoral fascia was then closed with a 0 Vicryl in a watertight fashion. The subcutaneous tissues were then reapproximated with a 2-0 Vicryl. The shoulder arthroscopy was then performed. The glenohumeral joint was injected with 20 cc of normal saline with good flow back. A standard posterior portal was made and the joint was entered atraumatically with a blunt arthroscope. Once inside we had good visualization of the structures of the glenohumeral joint. An anterior portal was established with spinal needle localization. A 6.5 mm cannula was inserted. A probe was then used to perform a diagnostic arthroscopy. There is noted to be some mild grade I/II chondromalacia of the central glenoid and the superior humeral head. The labrum was frayed superiorly and anteriorly but not unstable. There were no loose bodies in the inferior pouch. The superior rotator cuff was completely torn involving all the supra spinatus and a portion of infraspinatus. The biceps tendon had inflammatory changes throughout its course within the joint. The subscapularis was partially torn off of the lesser tuberosity with exposed footprint. Using a shaver and letter cautery the labrum was debrided down to stable base. The biceps was tenotomized with electrocautery and retracted. The rotator interval was debrided to expose superior portion of the subscapularis and the medial portion of the coracohumeral ligament, medial sling. An anterolateral portal was made spinal needle localization and a 7.5 mm cannula was inserted through this and through the superior rotator cuff tear. Using a shaver the footprint was decorticated in preparation for tendon repair. A single Mytec Healix anchor was then placed within the footprint. 2 sutures were placed in horizontal mattress fashion within the subscapularis tendon after debriding the torn edge. This nicely reduced the tendon back down the bone. It also reapproximated the coracohumeral ligament to the medial border of the biceps groove. The sutures then tied and cut. The arthroscope was then inserted into the subacromial space. The 6.5 mm cannula was placed lateral to the CA ligament. A complete bursectomy is performed anteriorly, posteriorly, and laterally with electrocautery and shaver. This had excellent exposure of the rotator cuff. The bursal side rotator cuff was inspected and confirmed the diagnosis of a large crescent type supraspinatus and infraspinatus tear. There was a lamination seen posteriorly. There was some portion of them spinatus wrapping around the tuberosity. There was a large anterolateral spur. Using a spinal needle a posterior lateral portal was established. This became the viewing portal. The tendon edge was debrided. Using a tissue grasper the tendon was manipulated to show approximate positioning for repair. The footprint was debrided with a shaver and the bone was roughened for bony tendon healing. 2 Mitek Healix 4.5 mm anchors were then placed along the medial portion of the tuberosity adjacent to the articular cartilage. These were placed without difficulty. Using a retrograde suture passer I then placed for horizontal mattress sutures within the tendon substance involving both leaflets posteriorly. The tissue quality was excellent with excellent mobility. A tissue liberator was used to free of the tendon from the glenoid but there was excellent excursion. Once these 4 were placed they were tied in standard arthroscopic knot tying fashion. This very nicely reapproximated tendon down to bone with excess tissue and therefore 2 lateral anchors were placed. An anterior anchor was placed first. One limb from each of the 4 sutures was placed into the Mitek 4.75 mm knotless anchor. This was then inserted and screwed in place with excellent reapproximation of the tendon tissue down to bone. There was a small dogear anteriorly so the dog or suture within the anchor was placed in a horizontal mattress fashion and nicely reapproximated the anterior tissue down to bone. This was repeated posteriorly incorporating the remaining single suture limb from each. Once again, this nicely reapproximated the tendon down to bone. The sutures were then cut. A 5.0 mm wild was then inserted from the posterior portal. The anterolateral corner of the acromion was then resected in plane with the posterior slope of the acromion. The scope equipment was removed from the shoulder. Excess fluid was evacuated. The portal sites were closed with 3-0 Monocryl. The wounds were dressed with Steri-Strips, 4 x 4's, ABDs, Medipore tape. A sling was applied. The patient tolerated the procedure well and was returned to the PACU in a stable condition suffering no known complication.
--- NOTE | 2019-07-08 09:54 | PDOC.ANES ---
Date of service: 07/08/19 Time of Service: 09:54 Anesthesia Note Report Anesthesia Note: Spoke to patient on the phone. Pt. reports difficulty breathing while laying flat and a low grade fever yesterday, does not report one today. Patient educated about phrenic nerve involvement with an ISB. Patient indicated that she only had difficulty taking a deep breath on the right side. Patient informed that her SOB should improve when the block wears off and encouraged to practice deep breathing exercises. Patient verbalized appreciation for the education and encouraged to call with any additional concerns and report to the emergency department if she was concerned about her SOB.
== END 2019-07-06 15:54 | disposition home or self-care (01) ==
PROVIDERS: PCP Nurse Practitioner Family; Visit Provider Student in an Organized Health Care Education/Training Program
PROC: (CPT 29827; principal; 2019-07-06 09:00)
PROC: (CPT 23120; 2019-07-06 09:00)
DX: M75.121 Complete rotator cuff tear or rupture of right shoulder, not specified as traumatic (principal); M19.011 Primary osteoarthritis, right shoulder; M75.21 Bicipital tendinitis, right shoulder; M94.211 Chondromalacia, right shoulder; G89.18 Other acute postprocedural pain; J45.909 Unspecified asthma, uncomplicated; K21.9 Gastro-esophageal reflux disease without esophagitis; I10 Essential (primary) hypertension
CPT/HCPCS: 29827; 23120; 29826; C1713; 76942; NC; J0171; J2250; J3010; L3670

== ENCOUNTER 2019-07-13 14:32 | Outpatient (CLI) | payer MEDICARE, BC, SELFPAY ==
--- NOTE | 2019-07-13 15:00 | DI.US_ITS ---
EXAM: US LOWER EXTREMITY VENOUS RT US LOWER EXTREMITY VENOUS RT CLINICAL HISTORY: ?DVT, rt calft pain, pain in rt lower leg, M79.661. ?DVT, rt calft pain, pain in rt lower leg, M79.661 TECHNIQUE: Lower extremity venous ultrasound performed using grayscale, color-flow, and spectral Dop pler analysis. COMPARISON: No exams were available for comparison FINDINGS: The common femoral, femoral and popliteal veins demonstrate normal compressibility, augmentation, and color Doppler. The posterior tibial veins are patent. The saphenous vein appears free of thrombus. No Jones's cyst or hematoma is seen. IMPRESSION: No evidence of DVT.
== END 2019-07-13 14:52 ==
PROVIDERS: PCP Nurse Practitioner Family; Visit Provider Student in an Organized Health Care Education/Training Program
DX: M79.661 Pain in right lower leg (principal)
CPT/HCPCS: 93971

== ENCOUNTER → 2019-07-18 13:26 | Outpatient (BNVA) | payer MEDICARE, BC, SELFPAY | PROVIDERS: PCP Nurse Practitioner Family; Referring Provider Nurse Practitioner Family; Visit Provider Student in an Organized Health Care Education/Training Program | DX: Z47.89 Encounter for other orthopedic aftercare (principal); M75.121 Complete rotator cuff tear or rupture of right shoulder, not specified as traumatic; M19.011 Primary osteoarthritis, right shoulder; M19.012 Primary osteoarthritis, left shoulder ==

== ENCOUNTER 2019-08-09 16:03 | Outpatient (REF) | payer MEDICARE, BC, SELFPAY ==
[2019-08-09 21:56] LABS: Abs Immature Grans 0.02 k/cumm (0.0-0.09); Absolute Basophil Count 0.03 k/cumm (0.0-0.2); Absolute Eosinophil Count 0.54 k/cumm (0.0-0.7); Absolute Lymphocyte Count 1.72 k/cumm (1.2-3.4); Absolute Monocyte Count 0.52 k/cumm (0.11-0.7); Absolute Neutrophil Count 5.11 k/cumm (1.2-6.7); Basophils % 0.4; Eosinophils % 6.8; HCT 34.4 % (36.0-46.0); HGB 10.7 g/dL (12.0-15.5); Immature Grans % 0.3; Lymphocytes % 21.7; Mean Corp. HGB Concentration 31.1 g/dL (32.0-36.0); Mean Corpuscular Hemoglobin 27.4 pg (27.0-33.0); Mean Platelet Volume 9.5 fL (8.0-11.0); Monocytes % 6.5; Neutrophils % 64.3; Platelet Count 377 x1000/uL (130-400); RBC 3.91 m/cumm (4.00-5.20); RBC Distribution Width 14.3 % (11.7-14.6); White Blood Cell Count 7.94 k/cumm (4.4-10.8)
[2019-08-09 22:22] LABS: Iron 49 ug/dL (50-170)
[2019-08-09 22:41] LABS: Anion Gap 9.2 mmol/L (3-11); BUN 17 mg/dL (7-18); CO2 28.8 mmol/L (21.0-32.0); Calcium 9.2 mg/dL (8.5-10.1); Calculated LDL 102 mg/dL; Chloride 103 mmol/L (98-107); Cholesterol 196 mg/dL (<200); Glucose 97 mg/dL (74-106); HDL Cholesterol 54 mg/dL (40-60); Magnesium 1.9 mg/dL (1.8-2.4); Potassium 4.6 mmol/L (3.5-5.1); Sodium 141 mmol/L (136-145); Triglyceride 200 mg/dL (<150); Vitamin B12 758 pg/mL (193-986)
== END 2019-08-09 16:23 ==
LOC: NCHCN 16:03
PROVIDERS: PCP Nurse Practitioner Family; Visit Provider Nurse Practitioner Family
DX: I10 Essential (primary) hypertension (principal); D64.9 Anemia, unspecified; F32.9 Major depressive disorder, single episode, unspecified; N39.46 Mixed incontinence; R05 Cough; K21.9 Gastro-esophageal reflux disease without esophagitis; N28.9 Disorder of kidney and ureter, unspecified; M19.049 Primary osteoarthritis, unspecified hand
CPT/HCPCS: 80048; 80061; 82607; 83540; 83735; 85025

== ENCOUNTER → 2019-08-22 09:55 | Outpatient (BNVA) | payer MEDICARE, BC, SELFPAY | PROVIDERS: PCP Nurse Practitioner Family; Referring Provider Nurse Practitioner Family; Visit Provider Student in an Organized Health Care Education/Training Program | DX: Z47.89 Encounter for other orthopedic aftercare (principal); I10 Essential (primary) hypertension ==

== ENCOUNTER 2019-10-05 08:19 | Outpatient (REF) | payer MEDICARE, BC, SELFPAY ==
[2019-10-05 12:03] LABS: ALT 19 U/L (14-59); AST 12 U/L (15-37); Albumin 3.6 g/dL (3.4-5.0); Alkaline Phosphatase 110 U/L (46-116); Anion Gap 9.7 mmol/L (3-11); BUN 20 mg/dL (7-18); Bilirubin, Total 0.3 mg/dL (0.2-1.0); CO2 27.3 mmol/L (21.0-32.0); CREATININE 0.81 mg/dL (0.55-1.02); Calculated LDL 78 mg/dL (<100); Chloride 105 mmol/L (98-107); Cholesterol 158 mg/dL (<200); Glucose 101 mg/dL (74-106); HDL Cholesterol 54 mg/dL (40-60); Potassium 4.7 mmol/L (3.5-5.1); Sodium 142 mmol/L (136-145); Total Protein 6.6 g/dL (6.4-8.2); Triglyceride 130 mg/dL (<150)
== END 2019-10-05 08:39 ==
LOC: NCHCN 08:19
PROVIDERS: PCP Nurse Practitioner Family; Visit Provider Nurse Practitioner Family
DX: I10 Essential (primary) hypertension (principal); E66.9 Obesity, unspecified
CPT/HCPCS: 80053; 80061

== ENCOUNTER → 2019-10-07 09:55 | Outpatient (BNVA) | payer MEDICARE, BC, SELFPAY | PROVIDERS: PCP Nurse Practitioner Family; Referring Provider Nurse Practitioner Family; Visit Provider Student in an Organized Health Care Education/Training Program | DX: Z47.89 Encounter for other orthopedic aftercare (principal); M79.621 Pain in right upper arm; I10 Essential (primary) hypertension | CPT/HCPCS: 99213 ==

== ENCOUNTER 2019-10-27 13:22 | Emergency (ER) | payer MEDICARE, BC, SELFPAY ==
--- NOTE | 2019-10-27 13:37 | W.ED.GENAD ---
Discharge Plan Disposition Patient Disposition: AGAINST MEDICAL ADVICE Discharge Details Clinical Impression: Head trauma Primary Care Provider: Meredith Feldman ED Provider: Colin Molina Home Meds and New Rx's Prescriptions: No Action multivitamin [Daily Multi-Vitamin] tablet 1 tab PO DAILY RF: 0 meclizine 12.5 mg tablet 12.5 mg PO BID-TID PRNRF: 0 pantoprazole [Protonix] 40 mg tablet,delayed release (DR/EC) 40 mg PO DAILY Qty: 30 RF: 12 Flovent HFA 110 mcg/actuation HFA aerosol inhaler 2 puff IH BID PRNRF: 0 acetaminophen 500 mg tablet 500 mg PO Q6H PRN (Reason: pain) Qty: 60 RF: 2 lisinopril 30 MG tablet 30 mg PO DAILY AM RF: 0 fluoxetine [Prozac] 40 MG capsule 40 mg PO HS RF: 0 fexofenadine [Cherelle Allergy] 180 MG tablet 180 mg PO PRN PRNRF: 0 mometasone [Nasonex] 17 GM spray,non-aerosol 2 spray intranasal PRN PRN (Reason: ALLERGIES) RF: 0 cyproheptadine 4 MG tablet 4 mg PO HS RF: 0 docusate sodium [Colace] 100 mg Capsule 100 mg PO BID Qty: 90 RF: 1 ibuprofen 600 mg tablet 600 mg PO TID PRN (Reason: pain) Qty: 60 RF: 2 Discharge Instructions Additional Instructions: You are leaving AGAINST MEDICAL ADVICE. You may have an acute life-threatening or lifestyle modifying condition. Please return to the emergency department as soon as possible should you desire further work-up and treatment. I am specifically concerned that you may have intracranial traumatic injury and will need CT diagnostic imaging to determine this. Referrals: Meredith Feldman [Primary Care Provider] - Medical Decision Making 64-year-old female presents 1 day after mechanical fall with significant head trauma, here with severe right-sided headache. Small scalp hematoma is present. Given persistent, severe symptoms, I am concerned about acute life-threatening intracranial traumatic hemorrhage. Patient is not on a blood thinner. Plan for CT imaging. Unfortunately, CT diagnostic imaging is not available at [facility] at this time due to malfunction. Given this limitation, I am unable to complete medical screening examination. Plan will be to transfer patient to facility with CT capability to complete medical screening examination. I explained diagnostic limitations to the patient and recommended transfer to emergency department with CT imaging capability. Patient refuses transfer. I had a discussion with the patient about my diagnostic/treatment plan. Patient declines plan and wishes to leave against medical advise. I reiterated my concerns to the patient and explained the risks of leaving prior to completion of workup and treatment. I specifically emphasized the possibility of life-threatening or lifestyle modifying disease that would not be appropriately treated if they leave. Patient verbalized understanding of my concerns and the potential for life threatening or lifestyle modifying disease. Patient has capacity to make informed decision. I again explained my concerns and urged the patient to stay for treatment as outlined. Patient continued to refuse. I then discussed potential less ideal alternatives to diagnostic/treatment plan as outlines and patient refused. I recommended that she return to the ED at any time for further work-up and treatment. She does state that she plans to have her transport her to another emergency department. HPI General Mode of arrival: ambulatory. Date/Time Provider Initiated Documentation: 10/27/19 13:37. Limitations to Documentation: no limitations. Information obtained by: patient. HPI Narrative: 64-year-old female presents with chief complaint of headache. Patient notes yesterday she tripped and fell and slammed her head into the ground. She did not lose consciousness but did feel dazed. She has had persistent headache since the fall. Headache is worse today. Headache is localized to the right side of her head. She has associated mild dizziness and some visual disturbances intermittent. She has had some nausea. No vomiting. Patient also notes mild injury to her right hand. No neck pain. Related Data Home Medications Medication Instructions Recorded Confirmed fexofenadine [Cherelle Allergy] 180 mg PO PRN PRN 12/04/15 10/07/19 fluoxetine [Prozac] 40 mg PO HS 12/04/15 10/07/19 lisinopril 30 mg PO DAILY AM 12/04/15 10/07/19 mometasone [Nasonex] 2 spray INTRANASAL PRN PRN 12/04/15 10/07/19 cyproheptadine 4 mg PO HS 02/08/18 10/07/19 meclizine 12.5 mg tablet 12.5 mg PO BID-TID PRN 01/18/19 10/07/19 multivitamin 1 tab PO DAILY 01/18/19 10/07/19 fluticasone propionate 110 2 puff IH BID PRN 01/24/19 10/07/19 mcg/actuation HFA aerosol inhaler pantoprazole 40 mg tablet,delayed 40 mg PO DAILY #30 tab 01/24/19 10/07/19 release docusate sodium [Colace] 100 mg PO BID #90 cap 04/28/19 10/07/19 ibuprofen 600 mg PO TID PRN #60 tab 07/06/19 10/07/19 acetaminophen 500 mg tablet 500 mg PO Q6H PRN #60 tab 08/22/19 10/07/19 Previous Rx's Medication Instructions Recorded pantoprazole 40 mg tablet,delayed 40 mg PO DAILY #30 tab 01/24/19 release docusate sodium [Colace] 100 mg PO BID #90 cap 04/28/19 ibuprofen 600 mg PO TID PRN #60 tab 07/06/19 acetaminophen 500 mg tablet 500 mg PO Q6H PRN #60 tab 08/22/19 Allergies Allergy/AdvReac Type Severity Reaction Status Date / Time cefaclor [From Ceclor] Allergy Severe Anaphylaxsi Verified 10/07/19 10:59 s cefuroxime axetil Allergy Severe Anaphylaxsi Verified 10/07/19 10:59 [From Ceftin] s Sulfa (Sulfonamide Allergy Intermediate Hives Verified 10/07/19 10:59 Antibiotics) Review of Systems Constitutional Constitutional: Denies weakness ENT Ears, Nose, Mouth, and Throat: Reports dizziness Musculoskeletal Musculoskeletal: Denies numbness Comments: rt hand pain Neurologic Neurologic: Reports dizziness, Denies numbness, Denies weakness and Reports other (Headache) [facility] Medical History Anemia (Acute) Asthma (Chronic) Cataract (Chronic) Diverticulosis (Acute ~02/22/19) Dizziness (Acute) Fatigue (Acute) GERD (gastroesophageal reflux disease) (Chronic) History of cystocele (Acute) repair History of foot fracture (Acute) ORIF with pin History of substance abuse (Chronic) Hypertension (Chronic) IBS (irritable bowel syndrome) (Chronic) Major depression (Chronic) 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) Nephropathy (Chronic) Obesity (Chronic) Pneumonia (Resolved) PTSD (post-traumatic stress disorder) (Chronic) Syncope and collapse (Acute) Surgical History H/O oophorectomy (Acute) History of carpal tunnel release (Acute) History of colonoscopy (Chronic) History of foot surgery (Acute) hammer toe repair History of sinus surgery (Acute) S/P colonoscopy (Acute ~02/22/19) S/P excision of lipoma (Acute) Status post right rotator cuff repair (Acute 07/06/19) Status post trigger finger release (Acute) Family History Father Cancer Aunt Cancer Mother Heart disease Maternal Cousin Diabetes Social History Smoking/Tobacco Use Status: Never Alcohol Intake: never Drug use: Never Substance use type: does not use Current gender identity: female Seatbelt use: always Do you feel safe at home: Yes Do you feel safe in your relationship?: Yes Female Reproductive History Menstrual Menopause type: natural Exam Const General: cooperative and no acute distress HENMT Head: hematoma right parietal 3 cm Ears: TM normal on the right Face and sinus: normal facial exam Mouth: moist mucous membranes Eyes EOM: EOM intact bilaterally Neck Neck: full ROM, trachea midline, supple and nontender Resp Auscultation: clear to auscultation bilaterally, no rales, no rhonchi and no wheezes Cardio Jugular venous pressure: no JVD Rate: regular rate and not tachycardic Rhythm: regular rhythm Neuro General: alert, awake, oriented Patient Orientation: Person, Place and Time, tone normal and moves all extremities Cognition: normal cognition Speech: speech normal Psych Appearance: grossly normal Mental Status: mental status grossly normal Speech and Movement: speech and movement normal
== END 2019-10-27 13:42 | disposition left against medical advice (07) ==
LOC: ER 13:57
PROVIDERS: Emergency Provider Student in an Organized Health Care Education/Training Program; PCP Nurse Practitioner Family
DX: S09.90XA Unspecified injury of head, initial encounter (principal); S00.03XA Contusion of scalp, initial encounter; R51 Headache; W01.198A Fall on same level from slipping, tripping and stumbling with subsequent striking against other object, initial encounter; Z53.29 Procedure and treatment not carried out because of patient's decision for other reasons; I10 Essential (primary) hypertension
CPT/HCPCS: 99281; 99283

== ENCOUNTER 2019-10-28 11:31 | Emergency (ER) | payer MEDICARE, BC, SELFPAY ==
[2019-10-28 11:35] VITALS: BP 144/73; PULSE 85; RESP 16; TEMP 36.4; O2SAT 97
--- NOTE | 2019-10-28 11:53 | DI.RAD_ITS ---
EXAM: XR WRIST RT COMPL NAVICULAR INDICATION: fall, right wrist pain at snuff box. COMPARISON: RIGHT HAND COMPLETE from 08/22/2016 TECHNIQUE: 2D digital imaging was performed. FINDINGS: No fracture or dislocation is seen. Degenerative changes are seen at the scaphoid multangular joint. There is a smoothly marginated bony density seen laterally which does not appear acute. The navicu lar appears intact. IMPRESSION: Degenerative changes. No acute abnormality. DATA REPOSITORY: RADIATION DOSE DELIVERED:
--- NOTE | 2019-10-28 11:56 | ED.GENADUL_ITS ---
Discharge Plan Disposition Patient Disposition: HOME Condition: Good Discharge Details Chief Complaint: Dizzy/Sync Clinical Impression: Closed fracture of phalanx of index finger, Fracture of trapezium Primary Care Provider: Meredith Feldman ED Provider: Robi Toth Home Meds and New Rx's Prescriptions: New meclizine 25 mg tablet 25 mg PO TID PRN (Reason: dizziness) Qty: 14 RF: 0 No Action multivitamin [Daily Multi-Vitamin] tablet 1 tab PO DAILY RF: 0 pantoprazole [Protonix] 40 mg tablet,delayed release (DR/EC) 40 mg PO DAILY Qty: 30 RF: 12 Flovent HFA 110 mcg/actuation HFA aerosol inhaler 2 puff IH BID PRNRF: 0 acetaminophen 500 mg tablet 500 mg PO Q6H PRN (Reason: pain) Qty: 60 RF: 2 lisinopril 30 MG tablet 40 mg PO DAILY AM RF: 0 fluoxetine [Prozac] 40 MG capsule 40 mg PO HS RF: 0 mometasone [Nasonex] 17 GM spray,non-aerosol 2 spray intranasal PRN PRN (Reason: ALLERGIES) RF: 0 cyproheptadine 4 MG tablet 4 mg PO HS RF: 0 Discharge Instructions Instructions: Wrist Fracture in Adults (ED), Contusion in Adults (ED), Con cussion (ED) Additional Instructions: At this time there appears to be a fracture in your wrist and at the base of your fingers. Please use the wrist splint/thumb spica as directed. Please take the maximum dose of 1000 mg of Tylenol every 6 hours and 600 mg of ibuprofen every 6 hours as needed for pain. Please follow-up with your established customer retention specialist Dr. Hurley. We will place a referral for you. My Tylenol and Motrin should help with your headache as well, and take the meclizine as needed for dizziness. If you notice any worsening of your symptoms, or any new symptoms such as vomiting, diarrhea, fever, chills, shortness of breath, chest pain, numbness, weakness, or fainting , please return immediately to the emergency department for reevaluation. Please follow up with your primary care provider as soon as possible for reassessment and reevaluation. As always, it was a pleasure participating in your medical care today. Referrals: Meredith Feldman [Primary Care Provider] - Sina Hurley MD [ [facility] STAFF PHYSICIAN] - Medical Decision Making 64-year-old female with a past medical history of previous right shoulder surgery, presents today for evaluation of fall. Yesterday she fell, hit her head, did not lose consciousness but was notably dizzy. She is not on blood thinners. She came to the ER for further evaluation, however unfortunately the CAT scan was down and the patient refused transfer to [place] for CT imaging. She left pleasantly, but AGAINST MEDICAL ADVICE. She has returned today for continued head pain, she also admits to right wrist pain. She is left-hand dominant. She does admit to mild dizziness with movement. She denies any other falls, or loss of consciousness. Her initial fall was mechanical in nature secondary to ice. Aside for her right wrist and head she denies any other significant pain or complaints. No other modifying factors. She has not taken any NSAIDs today. Physical exam shows no significant abnormalities. She does demonstrate notable tenderness over the right temporal region though, but no evidence of significant abnormality aside for mild divot over area of tenderness but no significant depression. No hemotympanum. No midline cervical spine pain. Mild pain over the right anatomical snuffbox. We will get an x-ray of the right wrist, as well as CT scan of the head neck. Will treat with Tylenol to start. Symptoms appearing consistent with cerebellar infarct or her classic peripheral vertigo. 1:[address] scan of the head is negative for any acute process. CT C-spine shows no acute process or fracture per virtual radiology. There is mild anterior listhesis of C4-C5, nothing acute. She demonstrates no signs of neurovascular compromise. X-ray of the hand demonstrates suspected fracture at the level of the greater multangular. This correlates well with her location of pain. She also does have a slight atypical component of her proximal second metacarpals. Concerned that this may also be fracture of sorts. Patient has been placed in a thumb spica splint, she is tolerated this well, I did discuss with her giving custom splint at this time, however secondary to the bulkiness of this, her expected travel soon, and the notable inhibition that this causes, the patient has elected to hold off on custom Ortho-Glass splint, will stick with the thumb spica for the time being. She has an established relationship with Dr. Hurley, I will copy the note to him, and recommend she contact their office as well for follow-up, we will place a referral as well. Recommend continue Tylenol and Motrin as needed for pain. Meclizine as needed for any potential remainder of dizziness secondary to fall, trauma potential mild concussion. I have extensively reviewed the treatment plan and discharge instructions with the patient. I have addressed all patient concerns at this time. The patient was mad e aware of what symptoms to monitor for that would warrant a return to the emergency department. Discussed the plan with the patient, they demonstrate verbal understanding and agreement with our assessment and plan at this time. FINDINGS: Bones/joints: There is a bony fragment adjacent to the greater multangular. This is suspicious for fracture at this level. Clinical correlation is recommended. There is osteopenia. Soft tissues: Normal. IMPRESSION: Suspect fracture at the level of the greater multangular. Clinical correlation is recommended. Thank you for allowing us to participate in the care of your patient. Dictated and Authenticated by: Godwin Cuevas MD 10/28/2019 1:45 PM Eastern Time ([place] & [place]) FINDINGS: Brain: Normal. No hemorrhage. Unremarkable white matter. No mass effect. Ventricles: Normal. No ventriculomegaly. Bones/joints: Unremarkable. No acute fracture. Sinuses: There is slight mucosal thickening of the frontal sinuses bilaterally. There is slight mucosal thickening of the ethmoid sinuses bilaterally. There is slight mucosal thickening of the maxillary sinuses bilaterally. The patient is status post bilateral maxillary sinus surgery. There is slight mucosal thickening of the after left sphenoid sinus. Mastoid air cells: There is rarefaction of the mastoid air cells bilaterally. There is soft tissue density within the mastoid air cells bilaterally. Soft tissues: Unremarkable. IMPRESSION: Sinusitis as above. Suspect chronic and acute bilateral mastoiditis. FINDINGS: Vertebrae: There is straightening of the normal lordosis. The vertebral bodies maintain their height throughout. There is a grade 1 anterolisthesis of C4 on C5. Discs/Spinal canal/Neural foramina: There are degenerative changes at C1-C2. There are degenerative changes and degenerative disc disease at C3-C4, C5-C6 and C6-C7. There are disc osteophyte complexes at these levels. Soft tissues: Unremarkable. Thyroid: The thyroid gland is within normal limits. Lungs: The visualized lung apices are within normal limits. IMPRESSION: Degenerative changes and degenerative disc disease as described above. Further evaluation could be obtained with an MRI examination if clinically warranted. Straightening of the normal lordosis. Grade 1 anterolisthesis of C4 on C5. Thank you for allowing us to participate in the care of your patient. Dictated and Authenticated by: Godwin Cuevas MD 10/28/2019 1:05 PM Eastern Time ([place] & [place]) HPI General Date/Time Provider Initiated Documentation: 10/28/19 11:45 . HPI Narrative: 64-year-old female with a past medical history of previous right shoulder surgery, presents today for evaluation of fall. Yesterday she fell, hit her head, did not lose consciousness but was notably dizzy. She is not on blood thinners. She came to the ER for further evaluation, however unfortunately the CAT scan was down and the patient refused transfer to [place] for CT imaging. She left pleasantly, but AGAINST MEDICAL ADVICE. She has returned today for continued head pain, she also admits to right wrist pain. She is left-hand dominant. She does admit to mild dizziness with movement. She denies any other falls, or loss of consciousness. Her initial fall was mechanical in nature secondary to ice. Aside for her right wrist and head she denies any other significant pain or complaints. No other modifying factors. She has not taken any NSAIDs today. Related Data Home Medications Medication Instructions Recorded Confirmed fluoxetine [Prozac] 40 mg PO HS 12/04/15 10/28/19 lisinopril 40 mg PO DAILY AM 12/04/15 10/28/19 mometasone [Nasonex] 2 spray INTRANASAL PRN PRN 12/04/15 10/28/19 cyproheptadine 4 mg PO HS 02/08/18 10/28/19 multivitamin 1 tab PO DAILY 01/18/19 10/28/19 fluticasone propionate 110 2 puff IH BID PRN 01/24/19 10/28/19 mcg/actuation HFA aerosol inhaler pantoprazole 40 mg tablet,delayed 40 mg PO DAILY #30 tab 01/24/19 10/28/19 release acetaminophen 500 mg tablet 500 mg PO Q6H PRN #60 tab 08/22/19 10/28/19 meclizine 25 mg PO TID PRN #14 tab 10/28/19 Previous Rx's Medication Instructions Recorded pantoprazole 40 mg tablet,delayed 40 mg PO DAILY #30 tab 01/24/19 release acetaminophen 500 mg tablet 500 mg PO Q6H PRN #60 tab 08/22/19 meclizine 25 mg PO TID PRN #14 tab 10/28/19 Allergies Allergy/AdvReac Type Severity Reaction Status Date / Time cefaclor [From Ceclor] Allergy Severe Anaphylaxsi Verified 10/28/19 11:40 s cefuroxime axetil Allergy Severe Anaphylaxsi Verified 10/28/19 11:40 [From Ceftin] s Sulfa (Sulfonamide Allergy Intermediate Hives Verified 10/28/19 11:40 Antibiotics) General Stated Complaint: Dizzy/Sync PARTH: 3 Review of Systems All systems reviewed & are unremarkable except as noted in HPI and below PFSH Social History Smoking/Tobacco Use Status: Never Alcohol Intake: never Drug use: Never Substance use type: does not use Current gender identity: female Seatbelt use: always Do you feel safe at home: Yes Do you feel safe in your relationship?: Yes Female Reproductive History Menstrual Menopause type: natural Exam Narrative Exam Narrative: 1.Const: Well-nourished, Well-developed, appearing stated age 2.Eyes: PERRL, no conjunctival injection, and symmetrical lids. Minimal very subtle horizontal nystagmus, no vertical or rotatory nystagmus, negative test of skew. Symptoms not worsened with head impulse test. 3.ENT: Atraumatic external nose and ears. Moist MM. Neck: Symmetric, trachea midline, No thyromegaly. There is no evidence of raccoon eyes, rivera sign, CSF rhinorrhea, mastoid tenderness, cranial crepitus, hemotympanum, exophthalmos, or hyphema. Patient demonstrates intact dentition with no signs of tooth avulsion or fracture, no signs of jaw deformity, no evidence of a LeFort's fracture, with an intact palate, nose and orbital region. There is no evidence of a nasal septal hematoma. No proptosis. Jaw closes symmetrically. Airway is clear. 4.CVS: Regular rate and rhythm, Normal s1 and s2. No murmurs, carotid bruits, rubs, or gallops. Radial pulses 2+ bilaterally and symmetric. Dorsalis pedis pulses 2+ bilaterally and symmetric. 2+ capillary refill. No evidence of distant heart sounds. No extremity edema. No evidence of gross hemorrhage. 5.RESP: Airway clear, no obstructions. No abrasions or ecchymosis. Chest movement symmetric with respirations. No chest wall tenderness. Trachea midline. No crepitus. No step offs. No paradoxical movements. Lungs are clear to auscultation bilaterally. No rales, rhonchi, wheezing or stridor. Breath sound symmetric. No Sucking chest wounds. No clinical evidence of significant chest trauma. 6.GI: Soft, nondistended, nontender. Bowel tones normoactive. No masses or organomegaly. No ecchymosis or abrasions. No periumbilical ecchymosis or seatbelt sign. No flank or CVA tenderness. No clinical signs of significant trauma. Genital Exam: Intact and traumatically unremarkable genital and rectal exam with no significant bruising, blood, or deformity. Rectal tone normal, stool without gross blood. No clinical evidence of significant abdominal trauma. 7.MSK: No gross deformities or discolorations or lesions. Tolerates full range of motion of extremities without tenderness. However there is small amount of tenderness on the right wrist which will be further described. All compartments of upper and lower extremities are soft with no tenderness. Vascular exam demonstrates brisk capillary refill and intact pulses in all extremities. Pelvic exam demonstrates a stable pelvis, nontender to lateral compression and palpation of symphysis pubis.. No clinical evidence of significant musculoskeletal trauma. Patient does have notable tenderness noted to the right temporal aspect of her head, no bruising or divot that I can appreciate. Right wrist: Right wrist demonstrates mild tenderness over the anatomical snuffbox, minimal tenderness distal to that the proximal carpals and metacarpals. No pain at the distal radius or ulna. Symmetrically palpable radial and ulnar pulses. Capillary refill less than 2 seconds to all digits. Intact sensation to light touch of the radial, median and ulnar nerves demonstrated by testing in the dorsal web space of the thumb, the distal palmar aspect of the index finger, and the lateral surface of the fifth finger. 2 point discrimination intact to 5mm (up to 6mm can be normal in digits 3-5) of discrimination in the all digit. Intact motor function of the radial, median and ulnar nerves demonstrated by strength of extension of the isolated distal joint of the index finger, hand spine nurse, and spreading of the 2nd through 5th digits. Intact recurrent median nerve as demonstrated by ability to move thumb fully through opposition, abduction and flexion. No snuffbox tenderness. No midline tenderness to palpation over the CTLS spine. Normal ROM in flexion, extension, side bend, and rotation. Patient has +5 out of 5 strength in the lower extremities in dorsiflexion and plantarflexion, knee flexion and extension, hip flexion and extension. Normal strength for dorsiflexion and plantar flexion of the great toe bilaterally. There is +2 over 2 dorsalis pedis pulses bilaterally. There is normal sensation to the skin with light touch at the foot, knee, and hip. Normal saddle sensation. Good sensation over the deep sural nerve area bilaterally. Rectal exam deferred. Reflexes are +2 over 4 in the patellar reflex bilaterally. +5 out of 5 strength in the medial, ulnar, radial nerve distribution bilaterally in the hands as well as intact light touch sensation to these dermatomes on the hands 8.Skin: Warm, Dry. No rashes or lesions. 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 Sensation grossly intact, no focal neurologic deficits. All 6 cardinal planes of vision are fully intact. No evidence of rotatory or vertical nystagmus. The patient demonstrated a normal [id number], good dexterity. There was no evidence of dysdiadochokinesia. Patient was able to ambulate without difficulty. There was no wide-based gait. Romberg testing was normal. Ojnz-oq-[id number] testing was normal. Sensation was intact bilaterally as well as muscle strength bilaterally for all extremities. Patient was able to verbalize butter cup with no slurring, or miss pronunciation. 10.Psych: (AAO) x3. Appropriate mood and affect Course Vital Signs Vital signs: Vital Signs Temperature 36.4 C L 10/28/19 11:35 Pulse 85 10/28/19 11:35 Respiratory Rate 16 10/28/19 11:35 Blood Pressure 144/73 H 10/28/19 11:35 Pulse Oximetry 97 10/28/19 11:35 Temperature 36.4 C L 10/28/19 11:35 Pulse 85 10/28/19 11:35 Respiratory Rate 16 10/28/19 11:35 Respiratory Effort 10/28/19 11:43 Blood Pressure 144/73 H 10/28/19 11:35 Blood Pressure Position Sitting 10/28/19 11:35 Pulse Oximetry 97 10/28/19 11:35 Oxygen Delivery Method Room Air 10/28/19 11:35 Oxygen Flow Rate 0 10/28/19 11:35 Pain Level 6 10/28/19 11:35
--- NOTE | 2019-10-28 12:23 | DI.CT_ITS ---
EXAM: CT HEAD CERVICAL SPINE WO CLINICAL HISTORY: Fall, trauma to right head, notable soreness,neck TECHNIQUE: Noncontrast COMPARISON: No exams were available for comparison FINDINGS: Intracranial hemorrhage, mass or infarct is seen. There is no significant atrophy or white matter ch anges. There is no evidence of skull fracture. There has been previous sinus surgery. The sinuses appear clear where visualized. There is a minimal amount of fluid inferiorly in the mastoid sinuses. IMPRESSION: No acute abnormality.
[2019-10-28] MEDS: Acetaminophen 500 MG TAB 1000 MG PO (12:45)
--- NOTE | 2019-10-28 13:05 | DI.VRAD_ITS ---
PROCEDURE INFORMATION: Exam: CT Head Without Contrast Exam date and time: 10/28/2019 12:23 PM Age: 64 years old Clinical indication: Dizziness and syncope and collapse; Radiculopathy; Cervical region; Patient HX: Dizzyness, syncope TECHNIQUE: Imaging protocol: Computed tomography of the head without contrast. Radiation optimization: All CT scans at this facility use at least one of these dose optimization techniques: automated exposure control; mA and/or kV adjustment per patient size (includes targeted exams where dose is matched to clinical indication); or iterative reconstruction. COMPARISON: No relevant prior studies available. FINDINGS: Brain: Normal. No hemorrhage. Unremarkable white matter. No mass effect. Ventricles: Normal. No ventriculomegaly. Bones/joints: Unremarkable. No acute fracture. Sinuses: There is slight mucosal thickening of the frontal sinuses bilaterally. There is slight mucosal thickening of the ethmoid sinuses bilaterally. There is slight mucosal thickening of the maxillary sinuses bilaterally. The patient is status post bilateral maxillary sinus surgery. There is slight mucosal thickening of the after left sphenoid sinus. Mastoid air cells: There is rarefaction of the mastoid air cells bilaterally. There is soft tissue density within the mastoid air cells bilaterally. Soft tissues: Unremarkable. IMPRESSION: Sinusitis as above. Suspect chronic and acute bilateral mastoiditis. PROCEDURE INFORMATION: Exam: CT Cervical Spine Without Contrast Exam date and time: 10/28/2019 12:23 PM Age: 64 years old Clinical indication: Dizziness and syncope and collapse; Radiculopathy; Cervical region; Patient HX: Dizzyness, syncope TECHNIQUE: Imaging protocol: Computed tomography images of the cervical spine without contrast. Radiation optimization: All CT scans at this facility use at least one of these dose optimization techniques: automated exposure control; mA and/or kV adjustment per patient size (includes targeted exams where dose is matched to clinical indication); or iterative reconstruction. COMPARISON: No relevant prior studies available. FINDINGS: Vertebrae: There is straightening of the normal lordosis. The vertebral bodies maintain their height throughout. There is a grade 1 anterolisthesis of C4 on C5. Discs/Spinal canal/Neural foramina: There are degenerative changes at C1-C2. There are degenerative changes and degenerative disc disease at C3-C4, C5-C6 and C6-C7. There are disc osteophyte complexes at these levels. Soft tissues: Unremarkable. Thyroid: The thyroid gland is within normal limits. Lungs: The visualized lung apices are within normal limits. IMPRESSION: Degenerative changes and degenerative disc disease as described above. Further evaluation could be obtained with an MRI examination if clinically warranted. Straightening of the normal lordosis. Grade 1 anterolisthesis of C4 on C5. Dictated and Authenticated by: Godwin Cuevas MD. Ordering:LAUREN Rosenbaum MD
--- NOTE | 2019-10-28 13:46 | DI.VRAD_ITS ---
PROCEDURE INFORMATION: Exam: XR Right Wrist Exam date and time: 10/28/2019 12:52 PM Age: 64 years old Clinical indication: Injury or trauma; Initial encounter; Sprain or strain; Wrist; Right; Patient HX: S/P fall TECHNIQUE: Imaging protocol: XR Right wrist. Views: 3 or more views. COMPARISON: CR RIGHT HAND COMPLETE 08/22/2016 8:51 AM FINDINGS: Bones/joints: There is a bony fragment adjacent to the greater multangular. This is suspicious for fracture at this level. Clinical correlation is recommended. There is osteopenia. Soft tissues: Normal. IMPRESSION: Suspect fracture at the level of the greater multangular. Clinical correlation is recommended. Dictated and Authenticated by: Godwin Cuevas MD. Ordering:LAUREN Rosenbaum MD
[2019-10-28 13:55] VITALS: BP 133/77; PULSE 73; RESP 14; O2SAT 98
== END 2019-10-28 13:50 | disposition home or self-care (01) ==
PROVIDERS: Emergency Provider Student in an Organized Health Care Education/Training Program; PCP Nurse Practitioner Family
DX: S62.171A Displaced fracture of trapezium [larger multangular], right wrist, initial encounter for closed fracture (principal); S62.610A Displaced fracture of proximal phalanx of right index finger, initial encounter for closed fracture; R51 Headache; W00.0XXA Fall on same level due to ice and snow, initial encounter
CPT/HCPCS: 25630; 26720; 99284; 70450; 72125; 73110; 99283; L3807

== ENCOUNTER 2019-11-07 10:20 | Outpatient (CLI) | payer MEDICARE, BC, SELFPAY ==
--- NOTE | 2019-11-07 09:30 | DI.RAD_ITS ---
EXAM: XR WRIST RT COMPLETE CLINICAL HISTORY: ? R wrist fx. TECHNIQUE: 2D digital imaging was performed. COMPARISON: No exams were available for comparison FINDINGS: BONES: No acute fracture is present. No bony destructive lesion is seen. JOINTS: The carpal bones are normally aligned. SOFT TISSUE: Normal. Dystrophic calcifications are seen in the soft tissues. IMPRESSION: No acute fracture or dislocation of the right wrist. DATA REPOSITORY: RADIATION DOSE DELIVERED:
== END 2019-11-07 10:40 ==
PROVIDERS: PCP Nurse Practitioner Family; Referring Provider Nurse Practitioner Family; Visit Provider Student in an Organized Health Care Education/Training Program
DX: M25.531 Pain in right wrist (principal); S62.17 Fracture of trapezium [larger multangular]; W01.0XXA Fall on same level from slipping, tripping and stumbling without subsequent striking against object, initial encounter
CPT/HCPCS: 99214; 73110

== ENCOUNTER → 2019-12-16 09:52 | Outpatient (BNVA) | payer MEDICARE, BC, SELFPAY | PROVIDERS: PCP Nurse Practitioner Family; Referring Provider Nurse Practitioner Family; Visit Provider Student in an Organized Health Care Education/Training Program | DX: M75.102 Unspecified rotator cuff tear or rupture of left shoulder, not specified as traumatic (principal); M18.11 Unilateral primary osteoarthritis of first carpometacarpal joint, right hand; Z47.89 Encounter for other orthopedic aftercare | CPT/HCPCS: 20605; 99214; J1030 ==

== ENCOUNTER 2019-12-21 02:10 | Outpatient (CLI) | payer MEDICARE, BC, SELFPAY ==
--- NOTE | 2019-12-21 07:45 | DI.MRI_ITS ---
EXAM: MR UPPER JOINT LT WO CLINICAL HISTORY: LT SHOULDER PAIN, ? LT ROTATOR CUFF TEAR. TECHNIQUE: Multiplanar multisequence MRI was performed. COMPARISON: MRI R UPPER JOINT WO CONT from 01/05/2018 FINDINGS: MR examination of the left upper extremity was performed according to the usual protocol. Bones: There are hypertrophic changes at the acromioclavicular joint and bowel involving both the acr omion and clavicle. Minimally abnormal signal also present at this site consistent with degenerative marrow changes. No other significant bony signal abnormality seen in the shoulder. Labrum: No gross labral tear identified by noncontrast criteria. Biceps tendon and anchor: Biceps tendon and anchor appear intact with biceps tendon normally located in the bicipital groove. Rotator cuff: Teres minor and infraspinatus are unremarkable except for mild apparent infraspinatus t endinosis. There is abnormal signal of supraspinatus tendon and myotendinous junction region. There is an appar ent superior surface partial-thickness tear of the supraspinatus associated with impingement from AC joint degenerative hypertrophic changes. There also appears to be a full-thickness tear of the supra spinatus humeral attachment anteriorly with retraction of less than 1 cm. Some superior fibers of thomas bscapularis tendon attachment may be involved with the tear at this site as well. There is abnormal signal in the rotator interval, suspect injury of coracoid humeral ligament. IMPRESSION: Full-thickness attachment tear of anterior portion of supraspinatus at the tendon insertion. Some thomas perior fibers of subscapularis may be involved at this site as well. Width of the tear on sagittal i mages is about 8 millimeters. Additionally there is a superior surface partial-thickness tear of the myotendinous junction region o f the supraspinatus secondary to AC hypertrophic impingement. This is an irregular tear and is diffi cult to measure accurately. DATA REPOSITORY:
== END 2019-12-21 02:30 ==
PROVIDERS: PCP Nurse Practitioner Family; Visit Provider Student in an Organized Health Care Education/Training Program
DX: M25.512 Pain in left shoulder (principal); M75.102 Unspecified rotator cuff tear or rupture of left shoulder, not specified as traumatic; M19.012 Primary osteoarthritis, left shoulder
CPT/HCPCS: 73221

== ENCOUNTER 2019-12-28 01:25 | Outpatient (CLI) | payer MEDICARE, BC, SELFPAY ==
--- NOTE | 2019-12-28 13:30 | DI.DEXA_ITS ---
EXAM: XR DEXA BONE DENSITY W/WO SHARYN CLINICAL HISTORY: SCREENING FOR OSTEOPOROSIS IN POSTMENOPAUSAL WOMAN,Z78.0 TECHNIQUE: [employer] Horizon C densitometer. COMPARISON: No exams were available for comparison FINDINGS: The lateral view of the thoracic and lumbar spine shows no evidence of compression fractures. The bone mineral density measurements of the lumbar spine correspond to a total T-score of -0.3, in t he normal range. The bone mineral density measurements the left hip correspond to a total T-score of -0.6 and a femora l neck T-score of -2.2, in the osteopenic range. The right forearm bone mineral density measurements correspond to a T-score of the distal 3rd of nega tive 1.0, the borderline of osteopenia. IMPRESSION: Normal bone mineral density of the lumbar spine. Osteopenia of the left hip. Borderline osteopeni a of the right forearm.
== END 2019-12-28 01:45 ==
PROVIDERS: PCP Nurse Practitioner Family; Visit Provider Nurse Practitioner Family
DX: M85.88 Other specified disorders of bone density and structure, other site (principal); Z78.0 Asymptomatic menopausal state
CPT/HCPCS: 77080

== ENCOUNTER 2019-12-28 01:26 | Outpatient (CLI) | payer MEDICARE, BC, SELFPAY ==
--- NOTE | 2019-12-28 | DI.MAMMO_ITS ---
EXAM: MAMMO SCREENING CLINICAL HISTORY: SCREENING, Z12.31 TECHNIQUE: Mammograms were interpreted according to the usual protocol including computer analysis w [employer] CAD system, tomosynthesis and C-view imaging. COMPARISON: 2016 through 2018 FINDINGS: The breasts are composed of heterogeneously dense fibroglandular densities, Breast Density category C . No suspicious masses or suspicious microcalcifications are seen. Coarse, benign calcifications are a gain noted bilaterally. No skin thickening or abnormal axillary lymph nodes are seen. There has been no significant change from prior exams. IMPRESSION: BI-RADS Cat 2-negative mammogram with benign Findings. Yearly screening mammography is recommended. Breast density category C, heterogeneously dense tissue which decreases the sensitivity of the mammog [place]mira. The mammogram demonstrates the patient's breast tissue is dense. Dense breast tissue is very common a nd is not abnormal but dense breast tissue can make it harder to find cancer on a mammogram. Also, de nse breast tissue may increase breast cancer risk. This information about the result of the mammogram report was provided to the patient to raise their awareness. Use this report when you speak with the patient about their risks for breast cancer, which includes their family history. At that time, you may recommend additional screening tests (Ultrasound or MRI) as they might be useful based on their r isk. A negative radiographic report should not delay biopsy if a dominant or clinically suspicious mass is present. Up to ten percent of cancers are not identified on mammography. A negative report may reinforce clinical impression. Adenosis and dense breasts may obscure an underlying neoplasm. False positive reports average 6 to 10%.
== END 2019-12-28 01:46 ==
PROVIDERS: PCP Nurse Practitioner Family; Visit Provider Obstetrics & Gynecology
DX: Z12.31 Encounter for screening mammogram for malignant neoplasm of breast (principal)
CPT/HCPCS: 77063; 77067

== ENCOUNTER 2020-01-16 08:52 | Outpatient (CLI) | payer MEDICARE, BC, SELFPAY ==
[2020-01-17 03:20] LABS: COVID-19 RT-PCR UVMMC Result Negative (Negative)
== END 2020-01-16 09:12 ==
PROVIDERS: PCP Nurse Practitioner Family; Visit Provider Student in an Organized Health Care Education/Training Program
DX: Z11.59 Encounter for screening for other viral diseases (principal)
CPT/HCPCS: U0003

== ENCOUNTER 2020-01-18 07:28 | Day surgery (SDC) | payer MEDICARE, BC, SELFPAY ==
[2020-01-18] VITALS (9 sets, daily range): BP systolic 74–146; BP diastolic 39–84; PULSE 66–89; RESP 16–20; TEMP 36.3–36.5; O2SAT 94–99
--- NOTE | 2020-01-18 07:28 | HPE_ITS ---
Date of service: 01/18/20 Time of Service: 07:40 Assessment and Plan Assessment and plan (1) Left rotator cuff tear: Status: Acute Assessment and plan: Yuridia is a 64-year-old who has a known rotator cuff tear of the left shoulder. She had a successful arthroscopic repair of the right side. Given her is, dysfunction, stiffness, pain, and failure with conservative options, I offered a rotator cuff repair. I reviewed the MRI with her over the phone previously which demonstrated a full-thickness anterior supraspinatus tear with a upper subscapularis tear and an impinging osteophyte from the inferior aspect of the AC joint. Given her symptoms and the MRI, I recommend an arthroscopic rotator cuff repair with an open distal clavicle excision. This is the same as she had on the other side which she has done very well from. I reviewed the risk of the procedure to include bleeding, infection, pain, stiffness, re-tear, hardware failure, need for repeat procedures, damage to nerves and vessels. Despite these risk, she elects to proceed. She has been quarantined at home after the COVID-19 test with no significant symptoms. She has no sick contacts or contact with people who have been exposed to COVID-19. Qualifiers: Rotator cuff tear extent: unspecified tear extent Rotator cuff tear trauma status: nontraumatic Qualified Code(s): M75.102 - Unspecified rotator cuff tear or rupture of left shoulder, not specified as traumatic History of Present Illness History of Present Illness Chief Complaint: Left Rotator Cuff Tear Narrative: Yuridia is a 64-year-old who I seen previously for her bilateral shoulders. She had a right rotator cuff tear which was repaired arthroscopically last year. She did very well from that. Unfortunately, she has had persistent decline in the function of her left shoulder with persistent pain. We tried a host of conservative options but she continues to be limited. An MRI was obtained which demonstrated full-thickness tear of the rotator cuff. She reports continued pain. She also has weakness. She has some limited motion. She is unable to use it for most daily activities due to pain and weakness. She is had no change in her health. She denies any cough, chest pain, shortness of breath, recent fever, recent illness. 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) Nephropathy (Chronic) Obesity (Chronic) Pneumonia (Resolved) PTSD (post-traumatic stress disorder) (Chronic) Syncope and collapse (Acute) Surgical History H/O oophorectomy (Acute) History of carpal tunnel release (Acute) History of colonoscopy (Chronic) History of foot surgery (Acute) hammer toe repair History of sinus surgery (Acute) S/P colonoscopy (Acute ~02/22/19) S/P excision of lipoma (Acute) Status post right rotator cuff repair (Acute 07/06/19) Status post trigger finger release (Acute) Family History Father Cancer Aunt Cancer Mother Heart disease Maternal Cousin Diabetes Social History Smoking/Tobacco Use Status: Never Alcohol Intake: never Drug use: Never Substance use type: does not use Current gender identity: female Seatbelt use: always Do you feel safe at home: Yes Do you feel safe in your relationship?: Yes Female Reproductive History Menstrual Menopause type: natural Meds Home Medications and Allergies Home Medications Medication Instructions Recorded Confirmed Type fluoxetine [Prozac] 40 mg PO HS 12/04/15 01/11/20 History mometasone [Nasonex] 2 spray INTRANASAL PRN PRN 12/04/15 01/11/20 History cyproheptadine 4 mg PO HS 02/08/18 01/11/20 History multivitamin 1 tab PO DAILY 01/18/19 01/11/20 History fluticasone propionate 110 2 puff IH BID PRN 01/24/19 01/11/20 History mcg/actuation HFA aerosol inhaler pantoprazole 40 mg tablet,delayed 40 mg PO DAILY #30 tab 01/24/19 01/11/20 Rx release acetaminophen 500 mg tablet 500 mg PO Q6H PRN #60 tab 08/22/19 01/11/20 Rx meclizine 25 mg PO TID PRN #14 tab 10/28/19 01/11/20 Rx lisinopril 40 mg PO DAILY 01/11/20 01/11/20 History loratadine 10 mg PO DAILY 01/11/20 01/11/20 History Allergies Allergy/AdvReac Type Severity Reaction Status Date / Time cefaclor [From Ceclor] Allergy Severe Anaphylaxsi Verified 01/12/20 09:36 s cefuroxime axetil Allergy Severe Anaphylaxsi Verified 01/12/20 09:36 [From Ceftin] s Sulfa (Sulfonamide Allergy Intermediate Hives Verified 01/12/20 09:36 Antibiotics) Exam Resp Effort & Inspection: normal respiratory effort Auscultation: clear to auscultation bilaterally Cardio Rate: regular rate Rhythm: regular rhythm Extrem Other: Limited abduction and 90 degrees. Limited forward flexion to 120 degrees. 4/5 strength abduction. Sensation intact to light touch over the axillary, median, radial, ulnar nerves. Palpable radial pulse. Pain over the AC joint. Results Labs Labs: COVID-19 test negative
[2020-01-18] MEDS: Lactated Ringers 1,000 ML 80 ML IV ×2 (08:00→12:12)
[2020-01-18] MEDS: CLINDAMYCIN 900 MG/50 ML BAG 50 MG IVPB (09:28)
[2020-01-18] MEDS: EPINEPHrine 1 MG/ML AMP pres-free (10:37)
--- NOTE | 2020-01-18 11:41 | W.PM.DSUDISC ---
Discharge Plan Disposition Patient Disposition: HOME Condition: Good Discharge Details Reason For Visit: Left Rotator Cuff Tear Attending Provider: Sina Hurley Primary Care Provider: Meredith Feldman Home Meds and New Rx's Prescriptions: New acetaminophen 500 mg tablet 1,000 mg PO Q8H PRN (Reason: pain) Qty: 90 RF: 3 ibuprofen 600 mg tablet 600 mg PO TID PRNQty: 90 RF: 3 oxycodone 5 mg tablet 5 mg PO Q4H Qty: 18 RF: 0 Continued multivitamin [Daily Multi-Vitamin] tablet 1 tab PO DAILY RF: 0 pantoprazole [Protonix] 40 mg tablet,delayed release (DR/EC) 40 mg PO DAILY Qty: 30 RF: 12 Flovent HFA 110 mcg/actuation HFA aerosol inhaler 2 puff IH BID PRNRF: 0 fluoxetine [Prozac] 40 MG capsule 40 mg PO HS RF: 0 mometasone [Nasonex] 17 GM spray,non-aerosol 2 spray intranasal PRN PRN (Reason: ALLERGIES) RF: 0 cyproheptadine 4 MG tablet 4 mg PO HS RF: 0 meclizine 25 mg tablet 25 mg PO TID PRN (Reason: dizziness) Qty: 14 RF: 0 lisinopril 40 mg Tablet 40 mg PO DAILY RF: 0 loratadine 10 mg Tablet 10 mg PO DAILY RF: 0 Discontinued acetaminophen 500 mg tablet 500 mg PO Q6H PRN (Reason: pain) Qty: 60 RF: 2 Discharge Instructions Stand Alone Forms: Mei Montanez w/RCR Referrals: Sina Hurley MD [ [facility] STAFF PHYSICIAN] - Equipment/Supplies: Sling Activity:: In sling except for hygiene and pendulum Remove Dressings/Wound Care:: 72 hours Shower/Bathe:: 72 hours Diet:: As Tolerated Discharge Orders Discharge Orders: Discharge Order (Routine); Ordered 01/18/20 Ordered By: Sina Hurley DS: Diagnosis Discharge Diagnosis (1) Left rotator cuff tear: Status: Acute
--- NOTE | 2020-01-18 20:22 | W.PM.OP ---
Date of service: 01/18/20 Time of Service: 11:22 Operative Note Operative Note DATE OF PROCEDURE: 01/18/20 PRE-OP DIAGNOSIS: Left AC Arthritis, Left Rotator Cuff Tear, Left Subacromial Impingement POST-OP DIAGNOSIS: other Left AC Arthritis, Left Rotator Cuff Tear (Supra and Subscapularis), Left SLAP tear, Left Subacromial Impingement PROCEDURE: - Mini-Open Distal Clavicle Excision - Arthroscopic Rotator Cuff Repair - Extensive debridement of anterior and posterior glenohumeral joint and rotator cuff - Biceps Tenotomy - Subacromial Debridement with Acromioplasty SURGEON: Sina Hurley PIANO REGULATOR: Brandee Willoughby ANESTHESIA: GETA and regional ESTIMATED BLOOD LOSS: 10 PATHOLOGY: none sent COMPLICATIONS: None Patient was transported to: PACU Patient's condition: stable Indications: I have seen Yuridia in clinic for a painful shoulder. Pathology was confirmed based on MRI and exam findings. Nonoperative measures were exhausted but disability and pain persisted. I discussed shoulder arthroscopy and procedures. I reviewed the risks of the procedures to include, but not limited to, bleeding, infection, pain, stiffness, damage to nerves or vessels, recurrence, hardware failure, blood clot. Despite these risks, the patient elected to proceed. Findings: There were signs of arthrosis of the distal clavicle; a 1cm wedge was resected A diagnostic arthroscopy was performed with the following findings: Articular Side - Glenohumeral Joint: Minimal arthritic change, maybe some Grade I of the glenoid - Labrum: degnerative tearin of the superior labrum from anteiror to posterior with liftoff from the glenoid - Cuff: Nearly full thickness upper subscapularis tear, complete supraspinatus tear - Biceps: Mild inflammatory changes Subacromial Side - Bursal: Anterior subacromial inflammatory changes - Rotator Cuff: Complete crescent type tear of hte supraspinatus - Small anterlateral spur Procedure Description: Yuridia was greeted in the preoperative holding area where the correct side was identified and marked. The consent was reviewed with the patient and signed. The history and physical was updated. All questions were answered. Yuridia was taken back to the PACU for administration of an intrascalene nerve block. She was then taken to the operating room. The patient was placed into the supine position on the operating room table. A general anesthetic was administered. Yuridia was then positioned in the beach chair position. All bony prominences were well padded. The head was placed in a foam head stock transfer clerk in a neutral position. Prophylactic antibiotics in the form of cefazolin were administered. The left arm/shoulder was then prepped with Chloraprep and draped in a standard fashion with stockinette and shoulder drape. A timeout to confirm correct identity, side and site, procedure, allergies, anesthesia, and medical concerns was performed. The arm was placed into a pneumatic vanegas, [id number]. The distal clavicle was approached through a 2 and half centimeter incision within Klaus's lines. This was made overlying the AC joint. The skin was incised sharply. The deeper tissues dissected with electrocautery. The clavipectoral fascia was identified and incised longitudinally off of the distal clavicle and onto the acromion. This was reflected subperiosteally to expose the distal clavicle and the AC joint. With adequate exposure a 1 cm bony resection was made using an oscillating saw. This is angled posteriorly to avoid any posterior impingement. Once it was fully resected, it was inspected to make sure it is of adequate width. A rasp was used to smooth the bony edges inferiorly and posteriorly primarily. A small amount of bone wax was placed on the end of the distal clavicle. The wound was thoroughly irrigated. There is no active bleeding. The clavipectoral fascia was then closed with a 0 Vicryl in a watertight fashion. The subcutaneous tissues were then reapproximated with a 2-0 Vicryl. The shoulder arthroscopy was then performed. The glenohumeral joint was injected with 20 cc of normal saline with good flow back. A standard posterior portal was made and the joint was entered atraumatically with a blunt arthroscope. Once inside we had good visualization of the structures of the glenohumeral joint. An anterior portal was established with spinal needle localization. A 6.5 mm cannula was inserted. A probe was then used to perform a diagnostic arthroscopy. There is noted to be very minimal cartilage wear within the glenoid. The labrum was intact but noted to be loosely associated to the glenoid. I was able to place a probe directly underneath and into the labrum which showed fraying of the labral fibers into the glenoid. There were no loose bodies in the inferior pouch. The superior rotator cuff was torn within the crescent involving the supraspinatus. The biceps tendon had no tearing and some minimal inflammatory changes. The subscapularis had exposure of the lesser tuberosity and a near complete tear of the upper portion of the tendon. Given that the superior labrum had degenerative wear and tearing, I performed a biceps tenotomy to indirectly treat this. The biceps tenotomy was performed letter cautery and the frayed edges of the labrum were debrided with a shaver. Yuridia had a thickened MGHL, likely a Luther complex. This was retracted to fully identify the tendon edge of the subscapularis. With this identified, then prepared the lesser tuberosity footprint. This was done with a shaver to remove any soft tissue and expose bleeding bone. A single Mytec 4.5 mm Healix anchor was then placed within the lesser tuberosity with good purchase. An anterior lateral portal was then made in the subacromial space giving access through the tear of the supraspinatus for subscapularis management. I then placed 2 horizontal mattress sutures into the healthy edge of the subscapularis tendon. This excellently reapproximated the tendon edge back down to the lesser tuberosity surface. The sutures were then tied using standard arthroscopic knot tying techniques. From within the joint I performed a limited debridement of the undersurface of the torn supraspinatus and its footprint. The arthroscope was then inserted into the subacromial space. The 6.5 mm cannula was placed lateral to the CA ligament. A complete bursectomy is performed anteriorly, posteriorly, and laterally with electrocautery and shaver. This had excellent exposure of the rotator cuff. The bursal side rotator cuff had a crescent tear of the supraspinatus. Intact fibers of infraspinatus onto the greater tuberosity and wrapping around the greater tuberosity were easily visualized. There was a very small anterolateral spur. Using a spinal needle a posterior lateral portal was established. This became the viewing portal. The tendon was easily mobilized back onto the footprint therefore requiring no releases. The tendon edge was debrided. The footprint of the greater tuberosity was also debrided of any soft tissue and also to roughen the bone to promote some bleeding. The tear measured about 1.2 cm and dimension from anterior to posterior. I placed a single Mytec Healix 4.5 mm anchor into the greater tuberosity at the articular margin. I then placed 2 horizontal mattress sutures into the supraspinatus tendon. To assist with complete coverage of the supraspinatus back down to the bone, I placed 2 grasping sutures on either side of the placed horizontal mattress sutures outside of any anchor. I then tied the horizontal mattress sutures reapproximating the medial row of the tendon back down to bone. I then incorporated one suture from each into a knotless Mytec 4.75 mm anchor. These were placed into the tuberosity with tensioning just prior to being fully set. 2 lateral anchors were placed. This nicely reapproximated the tendon back down to bone. There is no exposed tuberosity. A 5.0 mm wild was then inserted from the posterior portal. The anterolateral corner of the acromion was then resected in plane with the posterior slope of the acromion. The scope equipment was removed from the shoulder. Excess fluid was evacuated. The portal sites were closed with 3-0 Monocryl. The wounds were dressed with Steri-Strips, 4 x 4's, ABDs, Medipore tape. A sling was applied. The patient tolerated the procedure well and was returned to the PACU in a stable condition suffering no known complication.
== END 2020-01-18 14:48 | disposition home or self-care (01) ==
PROVIDERS: PCP Nurse Practitioner Family; Visit Provider Student in an Organized Health Care Education/Training Program
PROC: (CPT 29827; principal; 2020-01-18 10:00)
PROC: (CPT 23120; 2020-01-18 10:00)
DX: M75.122 Complete rotator cuff tear or rupture of left shoulder, not specified as traumatic (principal); M19.012 Primary osteoarthritis, left shoulder; S43.432A Superior glenoid labrum lesion of left shoulder, initial encounter; X58.XXXA Exposure to other specified factors, initial encounter; M75.42 Impingement syndrome of left shoulder; M75.22 Bicipital tendinitis, left shoulder; M25.512 Pain in left shoulder; G89.18 Other acute postprocedural pain; K21.9 Gastro-esophageal reflux disease without esophagitis; I10 Essential (primary) hypertension
CPT/HCPCS: 29827; 23120; 29823; 29826; 76942; NC; J0171; J1100; J1885; J2001; J2370; J2405; J3010; L3670

== ENCOUNTER → 2020-01-30 14:15 | Outpatient (BNVA) | payer MEDICARE, BC, SELFPAY | PROVIDERS: PCP Nurse Practitioner Family; Referring Provider Nurse Practitioner Family; Visit Provider Student in an Organized Health Care Education/Training Program | DX: Z47.89 Encounter for other orthopedic aftercare (principal) ==

== ENCOUNTER → 2020-02-27 10:30 | Outpatient (BNVA) | payer MEDICARE, BC, SELFPAY | PROVIDERS: PCP Nurse Practitioner Family; Referring Provider Nurse Practitioner Family; Visit Provider Student in an Organized Health Care Education/Training Program | DX: Z47.89 Encounter for other orthopedic aftercare (principal); I10 Essential (primary) hypertension ==

== ENCOUNTER 2020-04-02 11:48 | Outpatient (REF) | payer MEDICARE, BC, SELFPAY ==
[2020-04-02 21:06] LABS: Albumin 3.8 g/dL (3.4-5.0); Anion Gap 9.5 mmol/L (3-11); BUN 25 mg/dL (7-18); CO2 26.5 mmol/L (21.0-32.0); CREATININE 0.87 mg/dL (0.55-1.02); Chloride 104 mmol/L (98-107); Glucose 96 mg/dL (74-106); Potassium 4.4 mmol/L (3.5-5.1); Sodium 140 mmol/L (136-145)
[2020-04-02 22:13] LABS: PROTEIN 36.5 mg/dL
[2020-04-02 22:17] LABS: COMMENT (LAB VIEW ONLY) 221.08 mg/dL; Prot/Crea Ur Ratio 0.16
== END 2020-04-02 12:08 ==
LOC: NCHCN 11:48
PROVIDERS: PCP Nurse Practitioner Family; Visit Provider Nurse Practitioner Family
DX: R80.9 Proteinuria, unspecified (principal)
CPT/HCPCS: 80048; 82040; 82565; 84156

== ENCOUNTER → 2020-04-23 11:14 | Outpatient (BNVA) | payer MEDICARE, BC, SELFPAY | PROVIDERS: PCP Nurse Practitioner Family; Referring Provider Nurse Practitioner Family; Visit Provider Student in an Organized Health Care Education/Training Program | DX: M18.11 Unilateral primary osteoarthritis of first carpometacarpal joint, right hand (principal); M25.512 Pain in left shoulder; Z47.89 Encounter for other orthopedic aftercare; I10 Essential (primary) hypertension | CPT/HCPCS: 99213 ==

== ENCOUNTER → 2020-06-04 08:30 | Outpatient (BNVA) | payer MEDICARE, BC, SELFPAY | PROVIDERS: PCP Nurse Practitioner Family; Referring Provider Nurse Practitioner Family; Visit Provider Student in an Organized Health Care Education/Training Program | DX: Z47.89 Encounter for other orthopedic aftercare (principal); M67.431 Ganglion, right wrist; M18.11 Unilateral primary osteoarthritis of first carpometacarpal joint, right hand; M25.512 Pain in left shoulder; I10 Essential (primary) hypertension | CPT/HCPCS: 99213 ==

== ENCOUNTER → 2020-07-16 10:29 | Outpatient (BNVA) | payer MEDICARE, BC, SELFPAY | PROVIDERS: PCP Nurse Practitioner Family; Visit Provider Student in an Organized Health Care Education/Training Program | DX: M67.431 Ganglion, right wrist (principal); M13.841 Other specified arthritis, right hand; M13.842 Other specified arthritis, left hand; Z98.890 Other specified postprocedural states | CPT/HCPCS: 99213 ==

== ENCOUNTER 2020-09-20 16:27 | Outpatient (REF) | payer MEDICARE, BC, SELFPAY ==
[2020-09-20 20:45] LABS: Abs Immature Grans 0.02 10^3/uL (0.0-0.06); Absolute Basophil Count 0.05 10^3/uL (0.0-0.2); Absolute Eosinophil Count 0.71 10^3/uL (0.0-0.7); Absolute Lymphocyte Count 2.16 10^3/uL (1.2-3.4); Absolute Monocyte Count 0.55 10^3/uL (0.1-0.8); Basophils % 0.7; Eosinophils % 9.2; HCT 38.6 % (36.0-46.0); HGB 12.3 g/dL (11.2-15.7); Immature Grans % 0.3; Lymphocytes % 28.1; MCH 29.3 pg (27.0-33.0); MCHC 31.9 % (32.0-36.0); MCV 91.9 fL (80-95); MPV 9.6 fL (8.0-11.0); Monocytes % 7.2; Neutrophils % 54.5; Nucleated RBC 0 %; Platelet Count 328 10^3/uL (130-400); RDW 13.9 % (11.7-14.6); RDW-SD 47.2 fL; WBC 7.69 10^3/uL (4.4-10.8)
[2020-09-20 20:53] LABS: Iron 68 ug/dL (50-170); Total Iron Binding Capacity 407 ug/dL (250-450); Transferrin Sat 17 % (15-50)
[2020-09-20 21:19] LABS: Vitamin D 25 Total 26.9 ng/ml (30-100)
[2020-09-20 21:25] LABS: ALT 22 U/L (14-59); AST 13 U/L (15-37); Alkaline Phosphatase 85 U/L (46-116); Anion Gap 9.4 mmol/L (3-11); BUN 32 mg/dL (7-18); Bilirubin, Total 0.3 mg/dL (0.2-1.0); CO2 24.6 mmol/L (21.0-32.0); CREATININE 0.9 mg/dL (0.55-1.02); Calcium 9.2 mg/dL (8.5-10.1); Chloride 103 mmol/L (98-107); Glucose 98 mg/dL (74-106); Magnesium 1.9 mg/dL (1.8-2.4); Potassium 4.2 mmol/L (3.5-5.1); Sodium 137 mmol/L (136-145); TSH (W/Ref FT4) 1.56 uIU/mL (0.36-3.74); Total Protein 7.1 g/dL (6.4-8.2); Vitamin B12 415 pg/mL (193-986)
== END 2020-09-20 16:47 ==
LOC: NCHCN 16:27
PROVIDERS: PCP Nurse Practitioner Family; Visit Provider Nurse Practitioner Family
DX: D64.9 Anemia, unspecified (principal); M85.80 Other specified disorders of bone density and structure, unspecified site; R13.10 Dysphagia, unspecified; I25.10 Atherosclerotic heart disease of native coronary artery without angina pectoris; M19.041 Primary osteoarthritis, right hand; M19.042 Primary osteoarthritis, left hand; R53.83 Other fatigue; I10 Essential (primary) hypertension; K21.9 Gastro-esophageal reflux disease without esophagitis
CPT/HCPCS: 80053; 82306; 82607; 83540; 83550; 83735; 84443; 85025

== ENCOUNTER 2020-10-04 11:41 | Outpatient (REF) | payer MEDICARE, BC, SELFPAY ==
[2020-10-04 13:20] LABS: C-Reactive Protein 0.58 mg/dL (0.0-0.3)
[2020-10-04 15:29] LABS: ESR 43 mm/hr (<or=30)
[2020-10-04 20:52] LABS: Rheumatoid Factor <8.6 IU/mL (<12.0)
[2020-10-05 08:51] LABS: Lyme Ab w Rflx to Lyme Confirm Negative (Negative)
[2020-10-05 11:40] LABS: Cyclic Citrullinated Peptide <2.5 U/mL (<5.0)
[2020-10-05 14:14] LABS: ANA Interpretation Positive (Negative); ANA Titer Pattern 1:80 Speckled
[2020-10-09 07:27] LABS: Anaplasma phagocytophilum Negative (Negative); B. miyamotoi PCR Negative (Negative); Babesia divergens/MO-1 Negative (Negative); Babesia duncani Negative (Negative); Babesia microti Negative (Negative); Ehrlichia chaffeensis Negative (Negative); Ehrlichia ewingii/canis Negative (Negative); Ehrlichia muris eauclairensis Negative (Negative)
== END 2020-10-04 11:42 | disposition home or self-care (01) ==
LOC: NCHCN 11:41
PROVIDERS: PCP Nurse Practitioner Family; Visit Provider Nurse Practitioner Family
DX: R53.83 Other fatigue (principal)
CPT/HCPCS: 85652; 86200; 87798; 86038; 86140; 86431; 86618

== ENCOUNTER 2020-10-05 19:06 | Outpatient (CLI) | payer MEDICARE, BC, SELFPAY ==
[2020-10-06 11:49] LABS: COVID-19 RT-PCR UVMMC Result Negative (Negative)
== END 2020-10-05 19:07 | disposition home or self-care (01) ==
LOC: LBO 10-10 19:07
PROVIDERS: PCP Nurse Practitioner Family; Visit Provider Student in an Organized Health Care Education/Training Program
DX: Z20.822 Contact with and (suspected) exposure to COVID-19 (principal); Z01.818 Encounter for other preprocedural examination; M67.431 Ganglion, right wrist
CPT/HCPCS: U0003; U0005

== ENCOUNTER 2020-10-10 06:13 | Day surgery (SDC) | payer MEDICARE, BC, SELFPAY ==
[2020-10-10 06:38] VITALS: BP 122/79; PULSE 88; RESP 18; TEMP 36.5; O2SAT 95
[2020-10-10] MEDS: Lactated Ringers 1,000 ML 80 ML IV (07:05)
--- NOTE | 2020-10-10 07:16 | W.PREOPHP ---
Date of service: 10/10/20 Time of Service: 07:16 Assessment and Plan Assessment and plan (1) Ganglion cyst of volar aspect of right wrist: Status: Acute Assessment and plan: Yuridia is a 65yo who has a volar wrist ganglion cyst. It continues to bother her. She has lived with it for many years but it has not gone away. I discussed treatment options with her. I discussed the possible recurrence with all options, but the lowest with excision. I reviewed the other risks of excision to include bleeding, infection, recurrence, damage to nerves and vessels, pain, and stiffness. Despite these risks, she elects to proceed. History of Present Illness History of Present Illness Chief Complaint: Right Wrist Cyst Narrative: Yuridia is a 65yo female with a known volar wrist cyst of the right wrist. She continues to have pain about the wrist. The size of the cyst fluctuates with time but it continues to bother with any repetitive use of the wrist or pressure. She denies numbness or tingling. No overlying skin changes. No acute concerns medically. COVID-19 negative. 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: Yes Alcohol Intake: never Drug use: Never Substance use type: does not use Current gender identity: female Seatbelt use: always Do you feel safe at home: Yes Do you feel safe in your relationship?: Yes Female Reproductive History Menstrual Menopause type: natural Meds Home Medications and Allergies Home Medications Medication Instructions Recorded Confirmed Type fluoxetine [Prozac] 40 mg PO HS 12/04/15 10/10/20 History mometasone [Nasonex] 2 spray INTRANASAL PRN PRN 12/04/15 10/10/20 History multivitamin 1 tab PO DAILY 01/18/19 10/10/20 History fluticasone propionate 110 2 puff IH BID PRN 01/24/19 10/10/20 History mcg/actuation HFA aerosol inhaler pantoprazole 40 mg tablet,delayed 40 mg PO DAILY #30 tab 01/24/19 10/10/20 Rx release meclizine 25 mg PO TID PRN #14 tab 10/28/19 10/10/20 Rx lisinopril 20 mg PO DAILY 01/11/20 10/10/20 History loratadine 10 mg PO DAILY 01/11/20 10/10/20 History acetaminophen 1,000 mg PO Q8H PRN #90 tab 01/18/20 10/10/20 Rx ibuprofen 600 mg PO TID PRN #90 tab 01/18/20 10/10/20 Rx cholecalciferol (vitamin D3) 25 mcg PO DAILY 10/10/20 10/10/20 History [Vitamin D3] Allergies Allergy/AdvReac Type Severity Reaction Status Date / Time cefaclor [From Ceclor] Allergy Severe Anaphylaxsi Verified 10/10/20 06:42 s cefuroxime axetil Allergy Severe Anaphylaxsi Verified 10/10/20 06:42 [From Ceftin] s Sulfa (Sulfonamide Allergy Intermediate Hives Verified 10/10/20 06:42 Antibiotics) Exam Const General: cooperative, healthy appearing, comfortable and no acute distress Nutritional Appearance: average body habitus Orientation: alert, awake and oriented x3 Resp Auscultation: clear to auscultation bilaterally Cardio Rate: regular rate Rhythm: regular rhythm Extrem Other: Right wrist without skin changes. Palpable cyst of the radial, volar wrist. Well circumscribed about 2x1cm. Palpable radial pulse. Results Last Vital Signs Temp 36.5 C 10/10/20 06:38 Pulse 88 10/10/20 06:38 Resp 18 10/10/20 06:38 BP 122/79 10/10/20 06:38 Pulse Ox 95 10/10/20 06:38
--- NOTE | 2020-10-10 07:26 | W.PM.DSUDISC ---
Discharge Plan Disposition Patient Disposition: HOME Condition: Good Discharge Details Reason For Visit: Right Volar Wrist Ganglion Cyst Attending Provider: Sina Hurley Primary Care Provider: Meredith Feldman Home Meds and New Rx's Prescriptions: New hydrocodone-acetaminophen 5-325 mg tablet 1 tab PO Q8H PRN PRN (Reason: pain) Qty: 5 RF: 0 Continued multivitamin [Daily Multi-Vitamin] tablet 1 tab PO DAILY RF: 0 pantoprazole [Protonix] 40 mg tablet,delayed release (DR/EC) 40 mg PO DAILY Qty: 30 RF: 12 Flovent HFA 110 mcg/actuation HFA aerosol inhaler 2 puff IH BID PRNRF: 0 fluoxetine [Prozac] 40 MG capsule 40 mg PO HS RF: 0 mometasone [Nasonex] 17 GM spray,non-aerosol 2 spray intranasal PRN PRN (Reason: ALLERGIES) RF: 0 cholecalciferol (vitamin D3) [Vitamin D3] 25 mcg (1,000 unit) Capsule 25 mcg PO DAILY RF: 0 meclizine 25 mg tablet 25 mg PO TID PRN (Reason: dizziness) Qty: 14 RF: 0 lisinopril 40 mg Tablet 20 mg PO DAILY RF: 0 loratadine 10 mg Tablet 10 mg PO DAILY RF: 0 acetaminophen 500 mg tablet 1,000 mg PO Q8H PRN (Reason: pain) Qty: 90 RF: 3 ibuprofen 600 mg tablet 600 mg PO TID PRNQty: 90 RF: 3 Discharge Instructions Additional Instructions: Activity: You should keep the hand/wrist elevated as much as possible for the first few days. You may use the other fingers as tolerated but avoid trying to do too much too soon. You may perform light activities with the splint/brace in place. Dressing/Cast: Your dressing should stay on for the first 3 days. You may then remove it and get it wet. You should keep it covered with a bandaid to prevent any irritation. Medications: - You should take Tylenol and Ibuprofen for baseline pain control. - You have been prescribed a stronger pain medication, Hydrocodone, for breakthrough pain. - You may apply ice over the wrist surgical site Follow-up: 10-14 days Referrals: Sina Hurley MD [ [facility] STAFF PHYSICIAN] - Equipment/Supplies: Splint Activity:: Activity as Tolerated Remove Dressings/Wound Care:: 72 hours Shower/Bathe:: 72 hours Diet:: As Tolerated Discharge Orders Discharge Orders: Discharge Order (Routine); Ordered 10/10/20 Ordered By: Sina Hurley DS: Diagnosis Discharge Diagnosis (1) Ganglion cyst of volar aspect of right wrist: Status: Acute
[2020-10-10] MEDS: CLINDAMYCIN 900 MG/50 ML BAG 50 MG IVPB (07:28)
[2020-10-10] MEDS: Sodium Bicarbonate 50 MEQ/50 ML VIAL (07:42)
[2020-10-10 08:35] VITALS: BP 110/63; PULSE 78; RESP 18; TEMP 36.5; O2SAT 98
--- NOTE | 2020-10-10 10:20 | W.PM.OP ---
Date of service: 10/10/20 Time of Service: 07:48 Operative Note Operative Note DATE OF PROCEDURE: 10/10/20 PRE-OP DIAGNOSIS: Right Volar Wrist Ganglion Cyst POST-OP DIAGNOSIS: other (Right Wrist Flexor Tenosynovitis) PROCEDURE: Excision of tenosynovitis from right wrist FCR tendon SURGEON: Sina Hurley ANESTHESIA TYPE: General:No Airway Refer to Anesthesia Record ESTIMATED BLOOD LOSS: 0 PATHOLOGY: none sent TOURNIQUET TIME: 0 COMPLICATIONS: None Patient was transported to: PACU Patient's condition: stable Indications: Yuridia is a 65 year old who I have seen for a suspected right volar wrist ganglion cyst. It has continued to be bothersome despite some conservative options. Its size and interference with activities continues to cause problems. Therefore, I offered excision of the volar wrist cyst. I discussed the risks to include bleeding, infection, pain, stiffness, damage to nerve and vessels, recurrence. Despite these risks, Yuridia elects to proceed. Findings: There is no cystic structure encountered at the area marked on the skin for the painful mass. However, there was some notable tenosynovitis seen on the radial side of the flexor carpi radialis tendon. This was debrided. There is also some increased fat and synovitis seen around the tissue in this area. However, no cystic structure was identified. Procedure Description: Yuridia was greeted in the preoperative holding area. Identity was confirmed and the correct site was identified and marked. Consent was reviewed the patient and signed. History and physical was updated. The patient to take not to the operating room placed in supine position. All bony prominences were well-padded. The arm was prepped with ChloraPrep and draped in a standard fashion. The surgical site was marked on the skin and injected with 1% lidocaine with epinephrine buffered with sodium bicarbonate. The skin was incised sharply. Deeper dissection was carried out with tenotomy scissors and careful attention to vascular branches in this area. After dissecting the soft tissues subcutaneous tissue there is no cystic structure identified. There was a prominent crossing vein which looked somewhat tortuous but not necessarily representing any kind of vascular aneurysm or vascular anomaly. This was moved out of the way and the prominence was felt at the level of the flexor carpi radialis. Therefore, I incised the volar capsule of this region where the flexor carpi radialis tendon and its synovium pushed through. There is notable tenosynovitis seen, mostly the radial aspect of this tendon. I excised this tenosynovium and inspected the tendon. Once again, there is no mass seen. Once this was resected I then removed all instrumentation from the wrist and palpated thoroughly. Also unable to detect any other prominence of concern. I had marked the area of the mass on the skin and there is no prominence felt at this time. The wound was then thoroughly irrigated. There was no significant bleeding. The wound was dry. The deep layer was reapproximated with a 3-0 Vicryl. The skin was closed with a running 4-0 Monocryl followed by skin glue, gauze, and Blayne wrap. The wrist was placed into a removable wrist brace. At the end the case all counts were correct. The patient was awakened from anesthesia and taken to the same-day surgery area in stable condition. There were no noted complications except the unexpected finding of no cyst and marked tenosynovium. I did discuss the case with Yuridia once she woke up from anesthesia and will further discuss this when she returns for her postop visit.
== END 2020-10-10 09:39 | disposition home or self-care (01) ==
PROVIDERS: PCP Nurse Practitioner Family; Visit Provider Student in an Organized Health Care Education/Training Program
PROC: (CPT 25115; principal; 2020-10-10 07:30)
DX: M65.831 Other synovitis and tenosynovitis, right forearm (principal)
CPT/HCPCS: 25115; NC; J1885; J2405; J2704

== ENCOUNTER → 2020-10-22 09:32 | Outpatient (BNVA) | payer MEDICARE, BC, SELFPAY | PROVIDERS: PCP Nurse Practitioner Family; Referring Provider Nurse Practitioner Family; Visit Provider Student in an Organized Health Care Education/Training Program | DX: Z47.89 Encounter for other orthopedic aftercare (principal); M65.9 Synovitis and tenosynovitis, unspecified ==

== ENCOUNTER 2020-12-27 16:50 | Outpatient (REF) | payer MEDICARE, BC, SELFPAY ==
[2020-12-27 21:14] LABS: Abs Immature Grans 0.03 10^3/uL (0.0-0.06); HCT 39.3 % (36.0-46.0); HGB 12.4 g/dL (11.2-15.7); MCHC 31.6 % (32.0-36.0); MPV 9.7 fL (8.0-11.0); Nucleated RBC 0 %; Platelet Count 285 10^3/uL (130-400); RBC 4.27 10^6/uL (3.93-5.22); RDW 13.6 % (11.7-14.6); RDW-SD 46.4 fL; WBC 9.79 10^3/uL (4.4-10.8)
[2020-12-27 21:47] LABS: ALT 43 U/L (14-59); AST 27 U/L (15-37); Albumin 4.1 g/dL (3.4-5.0); Alkaline Phosphatase 120 U/L (46-116); Anion Gap 9.6 mmol/L (3-11); BUN 29 mg/dL (7-18); Bilirubin, Total 0.6 mg/dL (0.2-1.0); C-Reactive Protein 0.47 mg/dL (0.0-0.3); CO2 25.4 mmol/L (21.0-32.0); CREATININE 0.9 mg/dL (0.55-1.02); Chloride 103 mmol/L (98-107); Glucose 99 mg/dL (74-106); Potassium 4.6 mmol/L (3.5-5.1); Sodium 138 mmol/L (136-145); Total Protein 7.3 g/dL (6.4-8.2)
[2020-12-27 22:32] LABS: Absolute Lymphocyte Count 4.99 10^3/uL (1.2-3.4); Absolute Monocyte Count 0.88 10^3/uL (0.1-0.8); Absolute Neutrophil Count 3.72 10^3/uL (1.2-6.7); Atypical Lymphocytes % 23; Bands % 0
[2020-12-27 22:33] LABS: Diff Comment Manual Differential; RBC Morphology Normal
[2020-12-27 22:45] LABS: ESR 12 mm//hr (0-30)
[2020-12-28 17:50] LABS: Rheumatoid Factor <8.6 IU/mL (<12.0)
[2020-12-31 09:47] LABS: Cyclic Citrullinated Peptide <2.5 U/mL (<5.0)
[2020-12-31 13:56] LABS: ANA Interpretation Positive (Negative); ANA Titer Pattern 1:80 Homogeneous
[2021-01-01 11:55] LABS: dsDNA Ab, IgG <12.3 IU/mL (<30.0)
[2021-01-01 15:39] LABS: RNP Ab, IgG 1.9 Units (<20.0); SS-A Antibody 1.2 Units (<20.0); SS-B (La) Ab, IgG 1.4 Units (<20.0); Sm (Smith) Ab, IgG 1.8 Units (<20.0)
== END 2020-12-27 16:51 | disposition home or self-care (01) ==
LOC: NCHCN 16:50
PROVIDERS: PCP Nurse Practitioner Family; Visit Provider Nurse Practitioner Family
DX: I10 Essential (primary) hypertension (principal); D64.9 Anemia, unspecified; R80.9 Proteinuria, unspecified; R76.0 Raised antibody titer; M25.50 Pain in unspecified joint; I25.10 Atherosclerotic heart disease of native coronary artery without angina pectoris; E66.9 Obesity, unspecified; R53.83 Other fatigue
CPT/HCPCS: 80053; 85652; 86200; 85025; 86038; 86140; 86225; 86235; 86431

== ENCOUNTER 2021-01-03 13:13 | Outpatient (CLI) | payer MEDICARE, BC, SELFPAY ==
[2021-01-03 14:50] LABS: Abs Immature Grans 0.03 10^3/uL (0.0-0.06); Absolute Basophil Count 0.05 10^3/uL (0.0-0.2); Absolute Lymphocyte Count 3.77 10^3/uL (1.2-3.4); Absolute Monocyte Count 0.63 10^3/uL (0.1-0.8); Absolute Neutrophil Count 4.54 10^3/uL (1.2-6.7); Basophils % 0.5; Eosinophils % 3.2; HCT 36.3 % (36.0-46.0); HGB 11.5 g/dL (11.2-15.7); Immature Grans % 0.3; Lymphocytes % 40.5; MCH 29.3 pg (27.0-33.0); MCHC 31.7 % (32.0-36.0); MCV 92.4 fL (80-95); MPV 9.2 fL (8.0-11.0); Monocytes % 6.8; Neutrophils % 48.7; Nucleated RBC 0 %; Platelet Count 265 10^3/uL (130-400); RBC 3.93 10^6/uL (3.93-5.22); RDW 13.2 % (11.7-14.6); RDW-SD 44.9 fL; WBC 9.32 10^3/uL (4.4-10.8)
[2021-01-08 12:27] LABS: Leukemia/Lymphoma by FC (Blood See Comments
== END 2021-01-03 13:14 | disposition home or self-care (01) ==
LOC: LBO 13:19
PROVIDERS: PCP Nurse Practitioner Family; Visit Provider Nurse Practitioner Family
DX: D72.820 Lymphocytosis (symptomatic) (principal)
CPT/HCPCS: 36415; 88185; 85025; 88184; 88189

== ENCOUNTER 2021-01-18 10:15 | Outpatient (REF) | payer MEDICARE, BC, SELFPAY ==
[2021-01-19 14:10] LABS: COVID-19 RT-PCR UVMMC Result Negative (Negative)
== END 2021-01-18 10:16 | disposition home or self-care (01) ==
LOC: NCHCN 10:15
PROVIDERS: PCP Nurse Practitioner Family; Visit Provider Nurse Practitioner Family
DX: Z20.828 Contact with and (suspected) exposure to other viral communicable diseases (principal)
CPT/HCPCS: U0003; U0005

== ENCOUNTER 2021-02-08 21:51 | Outpatient (REF) | payer MEDICARE, BC, SELFPAY ==
[2021-02-08 14:10] LABS: Absolute Basophil Count 0.03 10^3/uL (0.0-0.2); Absolute Eosinophil Count 0.54 10^3/uL (0.0-0.7); Absolute Lymphocyte Count 2.68 10^3/uL (1.2-3.4); Absolute Monocyte Count 0.49 10^3/uL (0.1-0.8); Absolute Neutrophil Count 2.12 10^3/uL (1.2-6.7); Basophils % 0.5; Eosinophils % 9.2; HCT 36.5 % (36.0-46.0); HGB 11.4 g/dL (11.2-15.7); Lymphocytes % 45.7; MCH 28.6 pg (27.0-33.0); MCHC 31.2 % (32.0-36.0); MCV 91.7 fL (80-95); MPV 9.8 fL (8.0-11.0); Monocytes % 8.4; Neutrophils % 36.2; Nucleated RBC 0 %; Platelet Count 247 10^3/uL (130-400); RBC 3.98 10^6/uL (3.93-5.22); RDW 12.9 % (11.7-14.6); RDW-SD 43.6 fL; WBC 5.86 10^3/uL (4.4-10.8)
== END 2021-02-08 21:52 | disposition home or self-care (01) ==
LOC: NCHCN 21:51
PROVIDERS: PCP Nurse Practitioner Family; Visit Provider Nurse Practitioner Family
DX: D72.820 Lymphocytosis (symptomatic) (principal)
CPT/HCPCS: 85025

== ENCOUNTER → 2021-02-18 14:51 | Outpatient (BNVA) | payer MEDICARE, BC, SELFPAY | PROVIDERS: PCP Nurse Practitioner Family; Referring Provider Nurse Practitioner Family; Visit Provider Student in an Organized Health Care Education/Training Program | DX: M25.512 Pain in left shoulder (principal); Z98.890 Other specified postprocedural states | CPT/HCPCS: 20610; J1040 ==

== ENCOUNTER 2021-04-01 14:07 | Outpatient (CLI) | payer MEDICARE, BC, SELFPAY ==
--- NOTE | 2021-04-01 13:45 | DI.RAD_ITS ---
Exam(s) XR FOOT RT LIMITED EXAM: XR FOOT RT LIMITED CLINICAL HISTORY: pain. TECHNIQUE: 2D digital imaging was performed. COMPARISON: No exams were available for comparison FINDINGS: BONES: No acute fracture is present. No bony destructive lesion is seen. Prominent plantar calcaneal spur. JOINTS: No dislocation present. Mild degenerative changes tarsal metatarsal joints. Mild flattening ofplantar arch. SOFT TISSUE: Vascular calcification. IMPRESSION: Heel spur. DATA REPOSITORY: RADIATION DOSE DELIVERED:
== END 2021-04-01 14:08 | disposition home or self-care (01) ==
LOC: DIORS 14:07
PROVIDERS: PCP Nurse Practitioner Family; Referring Provider Nurse Practitioner Family; Visit Provider Student in an Organized Health Care Education/Training Program
DX: M79.671 Pain in right foot (principal); M20.5X1 Other deformities of toe(s) (acquired), right foot; M20.42 Other hammer toe(s) (acquired), left foot
CPT/HCPCS: 99214; 73620

== ENCOUNTER → 2021-05-13 14:46 | Outpatient (BNVA) | payer MEDICARE, BC, SELFPAY | PROVIDERS: PCP Nurse Practitioner Family; Referring Provider Nurse Practitioner Family; Visit Provider Student in an Organized Health Care Education/Training Program | DX: Z01.818 Encounter for other preprocedural examination (principal); M20.42 Other hammer toe(s) (acquired), left foot ==

== ENCOUNTER 2021-05-27 03:03 | Outpatient (CLI) | payer MEDICARE, BC, SELFPAY ==
[2021-05-27 10:58] LABS: Source Nasal/Nares
[2021-05-27 15:41] LABS: COVID-19 PCR Negative (Negative)
== END 2021-05-27 03:04 | disposition home or self-care (01) ==
LOC: LBO 03:04
PROVIDERS: PCP Nurse Practitioner Family; Visit Provider Student in an Organized Health Care Education/Training Program
DX: Z20.822 Contact with and (suspected) exposure to COVID-19 (principal); Z01.818 Encounter for other preprocedural examination
CPT/HCPCS: 87635

== ENCOUNTER 2021-05-29 09:25 | Day surgery (SDC) | payer MEDICARE, BC, SELFPAY ==
[2021-05-29] VITALS (8 sets, daily range): BP systolic 105–146; BP diastolic 49–78; PULSE 67–84; RESP 13–22; TEMP 36.2–36.9; O2SAT 94–100; BMI 31.8
[2021-05-29] MEDS: Lactated Ringers 1,000 ML 80 ML IV (10:32)
--- NOTE | 2021-05-29 11:10 | W.ANESPRE ---
General Info Date of Service Date Performed: 05/29/21 Height: 5 ft Weight: 74.1 kg Body Mass Index (BMI): 31.8 Surgical Procedure: Operation Date: 05/29/21 12:10 Proposed Procedures Side Surgeon p (L) 2nd toe pip fusion Left Sina Hurley MD Meds Allergies and Home Medications Allergies Allergy/AdvReac Type Severity Reaction Status Date / Time cefaclor [From Ceclor] Allergy Severe Anaphylaxsi Verified 05/29/21 09:41 s cefuroxime axetil Allergy Severe Anaphylaxsi Verified 05/29/21 09:41 [From Ceftin] s Sulfa (Sulfonamide Allergy Intermediate Hives Verified 05/29/21 09:41 Antibiotics) Home Medication Medication Instructions Recorded fluoxetine [Prozac] 40 mg PO HS 12/04/15 mometasone [Nasonex] 2 spray INTRANASAL PRN PRN 12/04/15 multivitamin 1 tab PO DAILY 01/18/19 fluticasone propionate 110 2 puff IH BID PRN 01/24/19 mcg/actuation HFA aerosol inhaler pantoprazole 40 mg tablet,delayed 40 mg PO DAILY #30 tab 01/24/19 release meclizine 25 mg PO TID PRN #14 tab 10/28/19 lisinopril 20 mg PO DAILY 01/11/20 loratadine 10 mg PO DAILY 01/11/20 acetaminophen 1,000 mg PO Q8H PRN #90 tab 01/18/20 ibuprofen 600 mg PO TID PRN #90 tab 01/18/20 cholecalciferol (vitamin D3) 25 mcg PO DAILY 10/10/20 [Vitamin D3] Current Visit Medications: Current Medications Generic Name Dose Route Start Last Admin Trade Name Freq PRN Reason Stop Dose Admin Ringer's Solution 1,000 mls @ 80 mls/hr 05/29/21 06:00 05/29/21 10:32 IV 06/27/21 23:59 80 mls/hr INFUSION PAMELA Administration Clindamycin Phosphate/Dextrose 900 mg in 50 mls @ 50 mls/hr 05/29/21 06:00 Cleocin In D5w IVPB 05/29/21 16:00 PREOP PAMELA Clindamycin Phosphate 900 mg/ 56 mls @ 112 mls/hr 05/29/21 09:45 Sodium Chloride IV 05/29/21 12:00 PREOP PAMELA IV Miscellaneous Supplies 1 each 05/29/21 06:00 Iv Access IV 06/27/21 23:59 DIRECTED PAMELA Sodium Chloride 0 ml 05/29/21 06:00 Normal Saline Flush 10 Ml Syr IV 06/27/21 23:59 PRN PRN Sodium Chloride 0 ml 05/29/21 06:00 Normal Saline 10 Ml Vial IJ 06/27/21 23:59 DIRECTED PRN Sterile Water 0 ml 05/29/21 06:00 Water,Injection,Sterile 10 Ml Vial IJ 06/27/21 23:59 DIRECTED PRN PFSH Active Problems Active Problems: Problem Status Onset Code Mallet toe of right foot M20.5X1 Hammertoe of left foot M20.42 Tenosynovitis of right wrist 10/10/20 M65.9 Ganglion cyst of volar aspect of right wrist M67.431 Status post left rotator cuff repair 01/18/20 Z98.890 Arthritis of carpometacarpal (CMC) joint of right thumb M18.11 Status post right rotator cuff repair 07/06/19 Z98.890 Urge incontinence 03/28/16 N39.41 Trochanteric bursitis, right hip 12/19/16 M70.61 Metacarpophalangeal joint pain of right hand 10/08/16 M25.541 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 Bilateral acromioclavicular joint arthritis 07/29/17 M19.011, M19.012 Cystocele with rectocele N81.10, N81.6 H/O rectocele repair Z98.890 Diverticulosis ~02/22/19 K57.90 S/P colonoscopy ~02/22/19 Z98.890 Anemia D64.9 Medical History Medical History Anemia Asthma Cataract Diverticulosis (~02/22/19) Dizziness Fatigue GERD (gastroesophageal reflux disease) History of cystocele repair History of foot fracture ORIF with pin History of substance abuse Hypertension IBS (irritable bowel syndrome) Major depression 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 Nephropathy Obesity Pneumonia PTSD (post-traumatic stress disorder) Syncope and collapse Surgical History Surgical History H/O oophorectomy History of carpal tunnel release History of colonoscopy History of foot surgery hammer toe repair History of sinus surgery S/P colonoscopy (~02/22/19) S/P excision of lipoma Status post left rotator cuff repair (01/18/20) Status post right rotator cuff repair (07/06/19) Status post trigger finger release Tobacco Smoking/Tobacco Use Status: Never Alcohol Alcohol Intake: never Substance Use Substance use: Never Substance use type: does not use Vital Signs and Lab Results Vital Signs Most Recent Vital Signs in EMR: Most Recent Vital Signs Temp Pulse Resp BP Pulse Ox 36.2 C L 81 18 146/75 H 98 05/29/21 10:00 05/29/21 10:00 05/29/21 10:00 05/29/21 10:00 05/29/21 10:00 Lab Results Blood Type / Crossmatch: No Data to Display Complete Blood Count: No Data to Display Complete Metabolic Panel: No Data to Display Liver Function Panel: No Data to Display Coagulation Panel: No Data to Display Cardiac Panel: No Data to Display Arterial Blood Gas: No Data to Display Venous Blood Gas: No Data to Display Pancreas Panel: No Data to Display Thyroid Panel: No Data to Display Infectious Disease: Coronavirus (COVID-19)(PCR) Negative (Negative) 05/27/21 10:34 05/27/21 Coronavirus 2019 Source Nasal/Nares 05/27/21 10:34 05/27/21 Blood Cultures: No Data to Display Toxicology Panel: No Data to Display Anesthesia Assessment and Plan Anesthesia History Personal History: No History of Anesthesia Complications Family History: No Family History of Anesthesia Complications Exercise Tolerance Exercise Tolerance: Metabolic Equivalents>4 Pertinent Negatives Pertinent Negatives: No Symptoms of GERD, No Major Cardiovascular Symptoms or Complaints, No Major Pulmonary Symptoms or Complaints and No History of CVA/TIA Cardiac & Pulmonary Exam Cardiac Exam: Normal S1/S2 Heart Sounds Pulmonary Exam: Clear Bilateral Breath Sounds Airway Exam Known Difficult Airway: No Mallampati Class: 1 Mouth Opening: Normal (> 3cm) Thyromental Distance: Greater than 3 cm Neck Range of Motion: Full ROM Neck Circumference: Normal Teeth Condition: Normal Dentition ASA Classification ASA Score: ASA 2 Emergency Case?: No NPO Status NPO Status: NPO Clears >2 hours, Solids >8 hours Anesthesia Plan Resuscitation Status: Full Code Anesthesia Technique: General Anesthesia Airway Planned: Natural Airway Monitors Used: Standard Monitors
--- NOTE | 2021-05-29 11:30 | DI.RAD_ITS ---
Exam(s) XR FOOT LT LIMITED EXAM: XR FOOT LT LIMITED CLINICAL HISTORY: 2nd toe pip fusion TECHNIQUE: 2D and realtime digital imaging was performed. CONTRAST MATERIAL: Refer to procedure report. COMPARISON: CR XR FOOT RT LIMITED from 04/01/2021 FINDINGS: Fluoroscopy was provided for Dr. Hurley during the performance of a fusion of the PIP joint of the 2nd toe. Please refer to the procedure report for complete details. Ka,r=0.1115 mGy IMPRESSION: RADIATION DOSE DELIVERED:
--- NOTE | 2021-05-29 11:31 | W.PM.DSUDISC ---
Documented by User: SARAH Cespedes 05/29/21 11:39 Discharge Plan Disposition Patient Disposition: HOME Condition: Good Discharge Details Reason For Visit: PIP fusion left 2nd toe Attending Provider: Sina Hurley Primary Care Provider: Meredith Feldman Home Meds and New Rx's Prescriptions: New hydrocodone-acetaminophen 5-325 mg tablet 1 tab PO Q6H PRN (Reason: pain) Qty: 10 RF: 0 ibuprofen 600 mg tablet 600 mg PO TID PRN (Reason: pain) Qty: 90 RF: 0 acetaminophen 500 mg capsule 1,000 mg PO Q8H PRN PRNQty: 90 RF: 0 Continued multivitamin [Daily Multi-Vitamin] tablet 1 tab PO DAILY RF: 0 pantoprazole [Protonix] 40 mg tablet,delayed release (DR/EC) 40 mg PO DAILY Qty: 30 RF: 12 Flovent HFA 110 mcg/actuation HFA aerosol inhaler 2 puff IH BID PRNRF: 0 fluoxetine [Prozac] 40 MG capsule 40 mg PO HS RF: 0 mometasone [Nasonex] 17 GM spray,non-aerosol 2 spray intranasal PRN PRN (Reason: ALLERGIES) RF: 0 cholecalciferol (vitamin D3) [Vitamin D3] 25 mcg (1,000 unit) Capsule 25 mcg PO DAILY RF: 0 meclizine 25 mg tablet 25 mg PO TID PRN (Reason: dizziness) Qty: 14 RF: 0 lisinopril 40 mg Tablet 20 mg PO DAILY RF: 0 loratadine 10 mg Tablet 10 mg PO DAILY RF: 0 Discontinued acetaminophen 500 mg tablet 1,000 mg PO Q8H PRN (Reason: pain) Qty: 90 RF: 3 ibuprofen 600 mg tablet 600 mg PO TID PRNQty: 90 RF: 3 Discharge Instructions Additional Instructions: PIP Fusion Discharge Instructions Activity: You may weight bear with crutches as tolerated while in the post op shoe. You should keep the leg elevated as much as possible. You should wear the post op shoe when you are up and mobilizing, but may remove it when not. You may wean yourself off of the crutches as tolerated. NO WEIGHT BEARING WITHOUT POST OP SHOE. No forceful motion of the toes. Dressings: You should keep the initial dressing on for at least 3 days. After 3 days, you may remove it and get it wet in the shower. You should keep it covered with a light gauze dressing or wrap until follow-up. Medications: - You should take Tylenol and Ibuprofen around the clock for baseline pain. - You have been prescribed a stronger narcotic, Hydrocodone, for breakthrough pain. Follow-up: 2 weeks Referrals: Sina Hurley MD [ [facility] STAFF PHYSICIAN] - Activity:: Elevate Remove Dressings/Wound Care:: 72 hours Shower/Bathe:: 72 hours Diet:: As Tolerated Discharge Orders Discharge Orders: Discharge Order (Routine); Ordered 05/29/21 Ordered By: Geovanny Grider DS: Diagnosis Discharge Diagnosis (1) Hammertoe of left foot: Status: Acute Documented by User: Sina Hurley MD 05/29/21 11:57 Discharge Plan Disposition Patient Disposition: HOME Condition: Good Discharge Details Reason For Visit: PIP fusion left 2nd toe Attending Provider: Sina Hurley Primary Care Provider: Meredith Feldman Home Meds and New Rx's Prescriptions: New hydrocodone-acetaminophen 5-325 mg tablet 1 tab PO Q6H PRN (Reason: pain) Qty: 10 RF: 0 ibuprofen 600 mg tablet 600 mg PO TID PRN (Reason: pain) Qty: 90 RF: 0 acetaminophen 500 mg capsule 1,000 mg PO Q8H PRN PRNQty: 90 RF: 0 Continued multivitamin [Daily Multi-Vitamin] tablet 1 tab PO DAILY RF: 0 pantoprazole [Protonix] 40 mg tablet,delayed release (DR/EC) 40 mg PO DAILY Qty: 30 RF: 12 Flovent HFA 110 mcg/actuation HFA aerosol inhaler 2 puff IH BID PRNRF: 0 fluoxetine [Prozac] 40 MG capsule 40 mg PO HS RF: 0 mometasone [Nasonex] 17 GM spray,non-aerosol 2 spray intranasal PRN PRN (Reason: ALLERGIES) RF: 0 cholecalciferol (vitamin D3) [Vitamin D3] 25 mcg (1,000 unit) Capsule 25 mcg PO DAILY RF: 0 meclizine 25 mg tablet 25 mg PO TID PRN (Reason: dizziness) Qty: 14 RF: 0 lisinopril 40 mg Tablet 20 mg PO DAILY RF: 0 loratadine 10 mg Tablet 10 mg PO DAILY RF: 0 Discontinued acetaminophen 500 mg tablet 1,000 mg PO Q8H PRN (Reason: pain) Qty: 90 RF: 3 ibuprofen 600 mg tablet 600 mg PO TID PRNQty: 90 RF: 3 Discharge Instructions Additional Instructions: PIP Fusion Discharge Instructions Activity: You may weight bear with crutches as tolerated while in the post op shoe. You should keep the leg elevated as much as possible. You should wear the post op shoe when you are up and mobilizing, but may remove it when not. You may wean yourself off of the crutches as tolerated. NO WEIGHT BEARING WITHOUT POST OP SHOE. No forceful motion of the toes. Dressings: You should keep the initial dressing on for at least 3 days. After 3 days, you may remove it and get it wet in the shower. You should keep it covered with a light gauze dressing or wrap until follow-up. Medications: - You should take Tylenol and Ibuprofen around the clock for baseline pain. - You have been prescribed a stronger narcotic, Hydrocodone, for breakthrough pain. Follow-up: 2 weeks Referrals: Sina Hurley MD [ [facility] STAFF PHYSICIAN] - Activity:: Elevate Remove Dressings/Wound Care:: 72 hours Shower/Bathe:: 72 hours Diet:: As Tolerated Discharge Orders Discharge Orders: Discharge Order (Routine); Ordered 05/29/21 Ordered By: Geovanny Grider
[2021-05-29] MEDS: CLINDAMYCIN 900 MG/50 ML BAG 50 MG IVPB (12:00)
[2021-05-29] MEDS: Bupivacaine 0.5% Pres-Free 30 ML VIAL (12:19)
--- NOTE | 2021-05-29 14:13 | W.ANESPOSTOP ---
Postoperative Evaluation Date, Time and Location Date Performed: 05/29/21 Time Performed: 14:13 Patient Location: Day Surgery Unit Vital Signs Most Recent Imported Vital Signs: Most Recent Vital Signs Temp Pulse Resp BP Pulse Ox 36.2 C L 67 18 123/78 98 05/29/21 13:53 05/29/21 13:53 05/29/21 13:53 05/29/21 13:53 05/29/21 13:53 Pain Score Most Recent Pain Score: Most Recent Pain Score Pain Level 0 05/29/21 13:53 Assessment Mental Status: Awake (Alert & Oriented to Patient Baseline) Airway and Respiratory Function: Patent airway with normal (patient baseline) respiratory exam Cardiovascular Function: Hemodynamically Stable Hydration Status: Adequately Hydrated Nausea & Vomiting: No Nausea or Vomiting Pain: Pt. Denies Any Pain Peripheral Nerve Block: Patient did not receive a nerve block
--- NOTE | 2021-05-29 20:57 | W.PM.OP ---
Date of service: 05/29/21 Time of Service: 11:57 Operative Note Operative Note DATE OF PROCEDURE: 05/29/21 PRE-OP DIAGNOSIS: Hammertoe, left second toe PROCEDURE: Left second toe PIP fusion SURGEON: Sina Hurley RETAIL SUPPORT MANAGER: Geovanny Grider ANESTHESIA TYPE: General LMA/ETT Refer to Anesthesia Record ESTIMATED BLOOD LOSS: 5 PATHOLOGY: none sent TOURNIQUET TIME: 0 COMPLICATIONS: None Patient was transported to: PACU Patient's condition: stable Implants: DePuy Synthes - Hammertoe continue compression implant, standard Indications: Yuridia is a 66-year-old female who has had pain about her left second toe with deformity and difficulty with shoe wear. She is attempted modification of shoewear and other nonoperative treatments but has continued to have discomfort and dysfunction. She was diagnosed with a hammertoe of the left second toe. I discussed treatment options including surgical correction with the PIP fusion. After discussing the treatment options she desired to proceed. I reviewed the risk of the procedure to include bleeding, infection, pain, stiffness, damage to nerves and vessels, damage to muscles and tendons, MCP extension contracture, weakness, skin healing difficulties, malunion, nonunion, hardware prominence, hardware failure. Despite these risks, she elects to proceed. Findings: There was a hammertoe clinically evident about the second toe. PIP joint had a block to full extension with notable osteophytes around the PIP joint, mostly of the head of the proximal phalanx. The base of the middle phalanx and the head of the proximal phalanx was resected with a saw and compressed and held with a Synthes hammertoe continuous compression implant. Procedure Description: Yuridia was greeted in the preoperative holding area. I did was confirmed the correct side was identified and marked. The consent was reviewed the patient and signed. History and physical was updated. Yuridia was transferred back to the operating room. She was placed in the supine position. All bony prominences well-padded. A general uninstrumented airway was administered. Prophylactic antibiotics in the form of clindamycin were started. The left foot and leg was then prepped with ChloraPrep. Left leg was draped in standard fashion and the foot was placed onto a triangle positioner. A digital block using 15 cc of 0.25% bupivacaine with epinephrine was then administered. Unfortunately, she was quite mobile even given the medications on board. Anesthesia had a challenging time with her staying still with multiple spontaneous movements making it unsafe to proceed. Therefore, a general endotracheal tube anesthetic was performed. The case was continued by making a longitudinal incision centered over the PIP joint. This was carried out sharply the skin and the extensor tendon and mechanism was incised sharply in line with the skin. PIP joint was identified and the capsule was elevated around the PIP joint sharply. This exposed the PIP joint with notable bony osteophyte seen about the head of the proximal phalanx and the base of the middle phalanx. The PIP joint hyperflexed expose the joint surfaces. Using a small oscillating saw I then prepared the surface making a cut of the proximal phalanx just proximal to the articular surface perpendicular to the mechanical axis of the bone and and slightly plantarly. Likewise, I performed a cut of the base of the middle phalanx just distal to the articular surface in the same fashion. These cuts were removed and the edges were insured to be free of any bony fragments. The toe was compressed together to ensure that these cuts and no gapping. I then used a K wire from the Synthes hammertoe CCI kit advancing it in antegrade fashion from within the PIP joint and out the distal end of the toe, reducing the use side and advancing the K wire back into the metatarsal head. Fluoroscopy was utilized to confirm appropriate positioning of the K wire down the central portion of the toe on the AP and the lateral. The implant guide was then placed onto the dorsal surface of the middle phalanx and the proximal phalanx fixating onto the K wire. The guide was rotated to be square onto the bone and appear to be on the bony surface of both middle phalanx and proximal phalanx. An x-ray was taken to confirm appropriate positioning. The holes were then drilled in position held with pins. The guide was removed and the PIP fusion site was compressed manually. Rotation was once again confirmed to be correct. The hammertoe CCI implant was then pushed into the predrilled holes and compressed such that the handle popped off. This had excellent fixation of the PIP joint. X-ray was utilized to confirm appropriate positioning on the AP, oblique, and lateral. The wound was then irrigated. The extensor mechanism was closed with interrupted #2-0 Vicryl. Skin was closed with 4-0 nylon. An ellipse of redundant skin was removed at the level of the PIP joint prior to closure. The toe was then dressed with Xeroform, 4 x 4, conformer dressing and Blayne wrap. She was placed into a postop shoe. At the end the case all counts were correct.
== END 2021-05-29 14:48 | disposition home or self-care (01) ==
PROVIDERS: PCP Nurse Practitioner Family; Visit Provider Student in an Organized Health Care Education/Training Program
PROC: (CPT 28285; principal; 2021-05-29 12:00)
DX: M20.42 Other hammer toe(s) (acquired), left foot (principal); I10 Essential (primary) hypertension
CPT/HCPCS: 28285; 73620; J1100; J2250; J2405

== ENCOUNTER 2021-06-10 14:44 | Outpatient (CLI) | payer MEDICARE, BC, SELFPAY ==
--- NOTE | 2021-06-10 14:15 | DI.RAD_ITS ---
Exam(s) XR FOOT LT COMPLETE EXAM: XR FOOT LT COMPLETE CLINICAL HISTORY: 1st post op s/p fusion. TECHNIQUE: 2D digital imaging was performed. COMPARISON: CR XR FOOT RT LIMITED from 04/01/2021 FINDINGS: Three views of the left foot reveal a lung to truly orientated screw in the proximal 2/3 of the 5th m etatarsal. No fracture line evident. Some degenerative changes noted at the articulation between th e base of the 5th metatarsal and the cuboid. Otherwise, there is a fusion device across the PIP joint of the 2nd toe. No radiographic evidence of osteomyelitis. IMPRESSION: DATA REPOSITORY: RADIATION DOSE DELIVERED:
--- NOTE | 2021-06-10 14:15 | DI.RAD_ITS ---
Exam(s) XR TOE LT SECOND EXAM: XR TOE LT SECOND CLINICAL HISTORY: s/p PIP fusion 2nd toe. TECHNIQUE: 2D digital imaging was performed. COMPARISON: CR XR FOOT RT LIMITED from 04/01/2021 CR XR FOOT RT LIMITED from 04/01/2021 CR XR FOOT LT COMPLETE from 06/10/2021 FINDINGS: Three dedicated views of the left 2nd toe reveal fusion device across the proximal interphalangeal juan francisco int of the 2nd toe. No fractures. No radiographic evidence of osteomyelitis. IMPRESSION: DATA REPOSITORY: RADIATION DOSE DELIVERED:
== END 2021-06-10 14:45 | disposition home or self-care (01) ==
LOC: DIORS 14:44
PROVIDERS: PCP Nurse Practitioner Family; Referring Provider Nurse Practitioner Family; Visit Provider Student in an Organized Health Care Education/Training Program
DX: M20.42 Other hammer toe(s) (acquired), left foot (principal); Z47.89 Encounter for other orthopedic aftercare
CPT/HCPCS: 73630; 73660

== ENCOUNTER 2021-07-15 14:47 | Outpatient (CLI) | payer MEDICARE, BC, SELFPAY ==
--- NOTE | 2021-07-15 14:15 | DI.RAD_ITS ---
Exam(s) XR TOE LT SECOND EXAM: XR TOE LT SECOND INDICATION: post op. COMPARISON: CR XR FOOT RT LIMITED from 04/01/2021 RF XR FOOT LT LIMITED from 05/29/2021 CR XR FOOT LT COMPLETE from 06/10/2021 TECHNIQUE: 2D digital imaging was performed. FINDINGS: Patient is status post fusion at the proximal interphalangeal joint of the 2nd toe. The alignment ap pears unchanged. DATA REPOSITORY: RADIATION DOSE DELIVERED:
== END 2021-07-15 14:48 | disposition home or self-care (01) ==
LOC: DIORS 14:47
PROVIDERS: PCP Nurse Practitioner Family; Referring Provider Nurse Practitioner Family; Visit Provider Student in an Organized Health Care Education/Training Program
DX: Z47.89 Encounter for other orthopedic aftercare (principal); M20.42 Other hammer toe(s) (acquired), left foot
CPT/HCPCS: 73660

== ENCOUNTER → 2021-08-15 10:00 | Outpatient (BNVA) | payer MEDICARE, BC, SELFPAY | PROVIDERS: PCP Nurse Practitioner Family; Referring Provider Nurse Practitioner Family; Visit Provider Student in an Organized Health Care Education/Training Program | DX: Z47.89 Encounter for other orthopedic aftercare (principal); M20.42 Other hammer toe(s) (acquired), left foot ==

== ENCOUNTER 2021-12-09 18:15 | Outpatient (REF) | payer MEDICARE, BC, SELFPAY ==
[2021-12-11 12:05] LABS: COVID-19 RT-PCR UVMMC Result Negative (Negative)
== END 2021-12-09 18:16 | disposition home or self-care (01) ==
LOC: LBN 18:15
PROVIDERS: PCP Nurse Practitioner Family; Visit Provider Nurse Practitioner Family
DX: Z20.822 Contact with and (suspected) exposure to COVID-19 (principal); J06.9 Acute upper respiratory infection, unspecified
CPT/HCPCS: U0003

== ENCOUNTER 2022-01-06 18:47 | Outpatient (REF) | payer MEDICARE, BC, SELFPAY ==
[2022-01-06 15:16] LABS: Abs Immature Grans 0.01 10^3/uL (0.0-0.06); Absolute Basophil Count 0.02 10^3/uL (0.0-0.2); Absolute Eosinophil Count 0.41 10^3/uL (0.0-0.7); Absolute Lymphocyte Count 2.12 10^3/uL (1.2-3.4); Absolute Monocyte Count 0.51 10^3/uL (0.1-0.8); Absolute Neutrophil Count 1.97 10^3/uL (1.2-6.7); Basophils % 0.4; Eosinophils % 8.1; HCT 37.8 % (36.0-46.0); Immature Grans % 0.2; Lymphocytes % 42.1; MCH 29.5 pg (27.0-33.0); MCHC 31.7 % (32.0-36.0); MCV 93 fL (80-95); MPV 9.5 fL (8.0-11.0); Monocytes % 10.1; Neutrophils % 39.1; Platelet Count 236 10^3/uL (130-400); RBC 4.07 10^6/uL (3.93-5.22); RDW 14.7 % (11.7-14.6); RDW-SD 50.8 fL; WBC 5.04 10^3/uL (4.4-10.8)
[2022-01-06 16:03] LABS: Iron 60 ug/dL (50-170); Total Iron Binding Capacity 401 ug/dL (250-450); Transferrin Sat 15 % (15-50)
[2022-01-06 16:08] LABS: Vitamin D 25 Total 30.4 ng/mL (30-100)
[2022-01-06 16:14] LABS: ALT 24 U/L (14-59); AST 18 U/L (15-37); Albumin 3.9 g/dL (3.4-5.0); Alkaline Phosphatase 85 U/L (46-116); Anion Gap 9.5 mmol/L (3-11); BUN 18 mg/dL (7-18); Bilirubin, Total 0.2 mg/dL (0.2-1.0); CO2 24.5 mmol/L (21.0-32.0); CREATININE 0.9 mg/dL (0.55-1.02); Calcium 8.6 mg/dL (8.5-10.1); Chloride 105 mmol/L (98-107); Ferritin 44 ng/mL (8-252); Glucose 98 mg/dL (74-106); Magnesium 2.1 mg/dL (1.8-2.4); Potassium 4.8 mmol/L (3.5-5.1); Sodium 139 mmol/L (136-145); Total Protein 6.9 g/dL (6.4-8.2); Vitamin B12 324 pg/mL (193-986)
== END 2022-01-06 18:48 | disposition home or self-care (01) ==
LOC: NCHCN 18:47
PROVIDERS: PCP Nurse Practitioner Family; Visit Provider Nurse Practitioner Family
DX: M85.80 Other specified disorders of bone density and structure, unspecified site (principal); I25.10 Atherosclerotic heart disease of native coronary artery without angina pectoris; N39.46 Mixed incontinence; R42 Dizziness and giddiness; E66.9 Obesity, unspecified; F32.9 Major depressive disorder, single episode, unspecified; I10 Essential (primary) hypertension; N28.9 Disorder of kidney and ureter, unspecified
CPT/HCPCS: 80053; 82306; 82607; 82728; 83540; 83550; 83735; 85025

== ENCOUNTER 2022-03-03 20:25 | Outpatient (REF) | payer MEDICARE, BC, SELFPAY ==
[2022-03-05 11:02] LABS: COVID-19 RT-PCR UVMMC Result Negative (Negative)
== END 2022-03-03 20:26 | disposition home or self-care (01) ==
LOC: LBN 20:25
PROVIDERS: PCP Nurse Practitioner Family; Visit Provider Nurse Practitioner Family
DX: R05.8 Other specified cough (principal); Z20.822 Contact with and (suspected) exposure to COVID-19
CPT/HCPCS: U0003

== ENCOUNTER 2022-03-14 10:22 | Outpatient (CLI) | payer MEDICARE, BC, SELFPAY ==
--- NOTE | 2022-03-14 10:15 | DI.RAD_ITS ---
Exam(s) XR HIP RT COMPLETE AP PELVIS EXAM: XR HIP RT COMPLETE AP PELVIS INDICATION: R HIP PAIN. COMPARISON: CR XR DEXA BONE DENSITY W/WO SHARYN from 12/28/2019 TECHNIQUE: 2D digital imaging was performed. Three views. FINDINGS: Hip joint spaces are well maintained. There is minimal acetabular spurring. . There is mild spurri ng at the SI joints. Enthesophytes are noted at the iliac wings and greater trochanters. IMPRESSION: Mild degenerative changes. DATA REPOSITORY: RADIATION DOSE DELIVERED:
== END 2022-03-14 10:23 | disposition home or self-care (01) ==
LOC: DIORS 10:23
PROVIDERS: PCP Nurse Practitioner Family; Referring Provider Nurse Practitioner Family; Visit Provider Student in an Organized Health Care Education/Training Program
DX: M70.61 Trochanteric bursitis, right hip (principal)
CPT/HCPCS: 99213; 73502

== ENCOUNTER → 2022-04-07 01:02 | Outpatient (CLI) | payer MEDICARE, BC, SELFPAY ==
--- NOTE | 2022-04-07 08:00 | DI.MRI_ITS ---
Exam(s) MR LOWER JOINT RT WO EXAM: MR LOWER JOINT RT WO CLINICAL HISTORY: ?ABDUCTOR TENDON TEAR,trochanteric bursitis rt hip,m70.61 TECHNIQUE: Multiplanar multisequence MRI of the knee was performed. COMPARISON: CR XR HIP RT COMPLETE AP PELVIS from 03/14/2022 FINDINGS: MARROW:No evidence of stress fracture nor avascular necrosis. No osseous lesions. No hip joint effu vadim. ARTICULATION: Minimal degenerative changes. No osteophytes. No suggestive subarticular cysts eviden t. LABRUM: No obvious labral tear. No evidence of paralabral cyst. SOFT TISSUES: There is significant abnormal fluid signal seen in gluteus medius muscle and tendon inc luding an 8 x 7 millimeter focus of fluid signal within musculature just above the greater trochanter consistent with tearing of the tendon. Also significant fluid signal lateral to the greater trochan ter consistent with some tendon tearing at this level but also increased bursal fluid. This fluid me asures 2.5 cm craniocaudal by 0 point 4 cm wide by 1 cm AP. No evidence of iliopsoas bursitis There is mild increased signal noted within the hamstrings attachment. No abnormal intraosseous sign al at this level nor within the pubic rami. IMPRESSION: 1. Main finding here is soft tissue fluid abnormality in the musculature above and lateral to the gre ater trochanter consistent with tearing in the abductor tendon. Also an element of trochanteric bursi tis. 2. No evidence of fracture or avascular necrosis nor hip joint effusion. 3. Minimal degenerative changes. No evidence of obvious labral tear. DATA REPOSITORY:
== END ==
PROVIDERS: PCP Nurse Practitioner Family; Visit Provider Student in an Organized Health Care Education/Training Program
DX: M70.61 Trochanteric bursitis, right hip (principal)
CPT/HCPCS: 73721

== ENCOUNTER → 2022-04-30 10:54 | Outpatient (BNVA) | payer MEDICARE, BC, SELFPAY | PROVIDERS: PCP Nurse Practitioner Family; Referring Provider Nurse Practitioner Family; Visit Provider Student in an Organized Health Care Education/Training Program | DX: X58.XXXA Exposure to other specified factors, initial encounter (principal); S76.011A Strain of muscle, fascia and tendon of right hip, initial encounter; M70.61 Trochanteric bursitis, right hip; M76.31 Iliotibial band syndrome, right leg | CPT/HCPCS: 99214 ==

== ENCOUNTER 2022-06-13 06:17 | Day surgery (SDC) | payer MEDICARE, BC, SELFPAY ==
--- NOTE | 2022-06-12 19:03 | W.ANESPRE ---
General Info Date of Service Date Performed: 06/13/22 Height: 5 ft Weight: 74.389 kg Body Mass Index (BMI): 32.0 Surgical Procedure: Operation Date: 06/13/22 07:50 Proposed Procedure Side Surgeon p Endoscopic Iliotibial Band Release w/Trochanteric Bursectomy and Gluteal Tendon Repair Right David Soler MD Meds Allergies and Home Medications Allergies Allergy/AdvReac Type Severity Reaction Status Date / Time cefaclor [From Ceclor] Allergy Severe Anaphylaxsi Verified 06/13/22 06:29 s cefuroxime axetil Allergy Severe Anaphylaxsi Verified 06/13/22 06:29 [From Ceftin] s Sulfa (Sulfonamide Allergy Intermediate Hives Verified 06/13/22 06:29 Antibiotics) Home Medication Medication Instructions Recorded fluoxetine 40 mg capsule (Prozac) 40 mg PO HS 12/04/15 mometasone 50 mcg/actuation nasal 2 spray intranasal PRN PRN 12/04/15 spray (Nasonex) ALLERGIES multivitamin (Daily Multi-Vitamin 1 tab PO DAILY 01/18/19 tablet) fluticasone propionate 110 2 puff inhalation BID PRN 01/24/19 mcg/actuation HFA aerosol inhaler (Flovent HFA) pantoprazole 40 mg tablet,delayed 40 mg PO DAILY #30 tabs 01/24/19 release (Protonix) meclizine 25 mg tablet 25 mg PO TID PRN dizziness #14 tabs 10/28/19 loratadine 10 mg tablet 10 mg PO DAILY 01/11/20 cholecalciferol (vitamin D3) 25 25 mcg PO DAILY 10/10/20 mcg (1,000 unit) capsule (Vitamin D3) acetaminophen 500 mg capsule 1,000 mg PO Q8H PRN PRN pain #60 05/29/21 caps ibuprofen 600 mg tablet 600 mg PO TID PRN pain #30 tabs 05/29/21 lisinopril 40 mg tablet 40 mg PO DAILY 04/30/22 Current Visit Medications: Current Medications Generic Name Dose Route Start Last Admin Trade Name Freq PRN Reason Stop Dose Admin Ringer's Solution 1,000 mls @ 30 mls/hr 06/13/22 06:00 IV 06/13/22 16:00 INFUSION PAMELA Clindamycin Phosphate/Dextrose 900 mg in 50 mls @ 100 mls/hr 06/13/22 06:00 Cleocin In D5w IVPB 06/13/22 16:00 PREOP PAMELA IV Miscellaneous Supplies 1 each 06/13/22 06:00 Iv Access IV 06/13/22 23:59 DIRECTED PAMELA Lactobacillus Acidophilus/Casei 1 cap 06/13/22 06:00 L. Acidophilus, Casei, Rhamnosus Cap PO 06/13/22 16:00 TODAY PAMELA Sodium Chloride 0 ml 06/13/22 06:00 Normal Saline Flush 10 Ml Syr IV 06/13/22 23:59 PRN PRN Sodium Chloride 0 ml 06/13/22 06:00 Normal Saline 10 Ml Vial IJ 06/13/22 23:59 DIRECTED PRN Sterile Water 0 ml 06/13/22 06:00 Water,Injection,Sterile 10 Ml Vial IJ 06/13/22 23:59 DIRECTED PRN PFSH Active Problems Active Problems: Problem Status Onset Code Urge incontinence 03/28/16 N39.41 Trochanteric bursitis, right hip 12/19/16 M70.61 Metacarpophalangeal joint pain of right hand 10/08/16 M25.541 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 Bilateral acromioclavicular joint arthritis 07/29/17 M19.011, M19.012 Anemia D64.9 S/P colonoscopy ~02/22/19 Z98.890 Diverticulosis ~02/22/19 K57.90 Cystocele with rectocele N81.10, N81.6 H/O rectocele repair Z98.890 Status post right rotator cuff repair 07/06/19 Z98.890 Arthritis of carpometacarpal (CMC) joint of right thumb M18.11 Status post left rotator cuff repair 01/18/20 Z98.890 Ganglion cyst of volar aspect of right wrist M67.431 Tenosynovitis of right wrist 10/10/20 M65.9 Hammertoe of left foot M20.42 Mallet toe of right foot M20.5X1 Iliotibial band syndrome of right side M76.31 Tear of right gluteus medius tendon S76.011A Medical History Medical History (Updated 06/12/22 @ 13:56 by Trenton Richards) Asthma Cataract Dizziness Fatigue GERD (gastroesophageal reflux disease) History of cystocele repair History of foot fracture ORIF with pin History of substance abuse Hypertension IBS (irritable bowel syndrome) Major depression 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 states it was related to when she had her ovaries out, and related to the removal per pt. Surgical History Surgical History H/O oophorectomy History of carpal tunnel release History of colonoscopy History of foot surgery hammer toe repair History of sinus surgery S/P excision of lipoma Status post trigger finger release Tobacco Smoking/Tobacco Use Status: Never Alcohol Alcohol Intake: former Substance Use Substance use: Current Sobriety Substance use type: former substance user Vital Signs and Lab Results Vital Signs Most Recent Vital Signs in EMR: Temp Pulse Resp BP Pulse Ox 36.4 C L 80 16 141/72 H 97 06/13/22 06:41 06/13/22 06:41 06/13/22 06:41 06/13/22 06:41 06/13/22 06:41 Lab Results Blood Type / Crossmatch: No Data to Display Complete Blood Count: No Data to Display Complete Metabolic Panel: No Data to Display Liver Function Panel: No Data to Display Coagulation Panel: No Data to Display Cardiac Panel: No Data to Display Arterial Blood Gas: No Data to Display Venous Blood Gas: No Data to Display Pancreas Panel: No Data to Display Thyroid Panel: No Data to Display Infectious Disease: No Data to Display Blood Cultures: No Data to Display Toxicology Panel: No Data to Display Anesthesia Assessment and Plan Anesthesia History Personal History: No History of Anesthesia Complications Family History: No Family History of Anesthesia Complications Exercise Tolerance Exercise Tolerance: Metabolic Equivalents>4 Cardiac & Pulmonary Exam Cardiac Exam: Normal S1/S2 Heart Sounds Pulmonary Exam: Clear Bilateral Breath Sounds Implantable Cardiac Device Does patient have a Pacemaker or an ICD?: No Airway Exam Known Difficult Airway: No Mallampati Class: 1 Mouth Opening: Normal (> 3cm) Thyromental Distance: Greater than 3 cm Neck Range of Motion: Full ROM Neck Circumference: Normal Teeth Condition: Normal Dentition ASA Classification ASA Score: ASA 2 Emergency Case?: No NPO Status NPO Status: NPO Clears >2 hours, Solids >8 hours Anesthesia Plan Resuscitation Status: Full Code Anesthesia Technique: General Anesthesia Airway Planned: Endotracheal Tube Monitors Used: Standard Monitors Preoperative Comments:: 67 yo female with right hip pain with IT syndrome, tendon tear to OR for repair. Sig PMHX: anemia, asthma, GERD (protonix), HTN (lisinopril, home BPs 120/), PTSD, depression, never smoker, former EtOH. Denies no major changes in health history. Previous Anes: - Hand arthroplasty with prop, no airway, phenyl, no issues. - colo, prop, no airway. - a/p supervisor leaf spring repair 2 grade 1. - RTC LMA 4, easy mask. - RTC glide 3 grade 1, phenyl gtt. - hammer toe, Mac 3 grade 1, easy mask, started as GA no airway, but ETT due to continued movement. -
[2022-06-13] VITALS (10 sets, daily range): BP systolic 104–141; BP diastolic 54–85; PULSE 63–80; RESP 13–22; TEMP 36.1–36.4; O2SAT 94–99; BMI 32.0
--- NOTE | 2022-06-13 06:45 | DI.RAD_ITS ---
Exam(s) XR HIP RT IN OR EXAM: XR HIP RT IN OR CLINICAL HISTORY: Iliotibial band syndrome of right side. TECHNIQUE: 2D digital imaging was performed. COMPARISON: No exams were available for comparison FINDINGS: Fluoroscopy provided during orthopedic procedure. Refer procedure report for details. Total fluoroscopy time 24.7 seconds. Cumulative dose= 3.92mGy IMPRESSION: DATA REPOSITORY: RADIATION DOSE DELIVERED:
[2022-06-13] MEDS: Lactated Ringers 1,000 ML 30 ML IV (06:50)
[2022-06-13] MEDS: CLINDAMYCIN 900 MG/50 ML BAG 100 MG IVPB (07:35)
[2022-06-13] MEDS: Bupivacaine 0.5% Pres-Free W/EPI 30 ML VIAL (08:21)
[2022-06-13] MEDS: Bupivacaine 0.5% Pres-Free W/EPI 10 ML VIAL (08:22)
--- NOTE | 2022-06-13 09:00 | W.PM.OP ---
Date of service: 06/13/22 Time of Service: 09:00 Operative Note Operative Note DATE OF PROCEDURE: 06/13/22 PRE-OP DIAGNOSIS: Right hip 1. Iliotibial band syndrome 2. Trochanteric bursitis 3. Gluteal tendon tear POST-OP DIAGNOSIS: same PROCEDURE: Right hip endoscopic 1. Iiliotibial band release, CPT# 11145 2. Trochanteric bursectomy, CPT# 65015 3. Gluteal tendon repair, CPT# 84835 SURGEON: David Soler [employer] OFFICER: Brandee Willoughby ANESTHESIA TYPE: Local By Surgeon and General LMA/ETT Refer to Anesthesia Record ESTIMATED BLOOD LOSS: 5 COMPLICATIONS: None Patient was transported to: PACU Patient's condition: stable Indications: Please see complete medical record for details. Findings: Thickened iliotibial band. Abundant, inflamed trochanteric bursitis. Inflamed carlos-trochanteric tissue aroung calcium deposit. Moderately sized, degenerative gluteus medius tendon tear. Procedure Description: In the operating room, general anesthesia was induced. The patient was positioned supine on the [place] operating room table. All bony prominences were well-padded. Preoperative antibiotics were administered. The hip was prepped and draped in the usual sterile fashion. The correct patient, procedure, and side of the procedure were all verified prior to incision. 30 cc of 0.5% bupivacaine containing epinephrine was infiltrated about the subcutaneous tissues for the planned anterior lateral and distal anterolateral portals as well as deeply over the greater trochanter. A knife was used to incise the skin for the anterior lateral and distal anterolateral portals followed by blunt dissection subcutaneously. Under fluoroscopic guidance, a switching stick and arthroscope were inserted localizing the iliotibial band over the greater trochanter. Blunt dissection and the mechanical shaver were used to resect fat and overlying tissue about the center of the iliotibial band and carefully expose the anterior and posterior margins. Once there was adequate exposure of the IT band, the greater trochanter was again localized under fluoroscopic guidance with a spinal needle inserted through the skin down to bone. This central area was marked using the radiofrequency ablator. A [employer] [employer] blade was brought in and used to create a 2 cm longitudinal incision in line with the IT band fibers as well as extending it in a cruciate fashion with 2 cm incisions anteriorly and posteriorly. The radiofrequency ablator was used to achieve hemostasis. The mechanical shaver was then used to debride the IT band released edges exposing the trochanteric bursa. The mechanical shaver was then used to excise the trochanteric bursa taking care to protect musculature about the margins of the greater trochanter as well as neurovascular structures especially posteriorly. There was excellent visualization of the vastus lateralis as well as gluteus medius confirming appropriate bursa excision. The distal calcium deposit was localized with fluoroscopic assistance. There was significant inflamed tissue in this region but no soft deposit for milking or resection. Tissue around the chronic firm deposit was resected and hemostasis achieved. The hip was brought through range of motion including internal and external rotation and there was no impinging iliotibial band tissue or remaining pathologic bursa. The viewing and working portals were switched and appropriate IT band release, trochanteric bursa excision, and hemostasis confirmed. There was obvious instability although remnant tissue coverage of the anterior gluteus medius. A FiberTape stitch was placed in a horizontal mattress fashion across this tissue and used for traction. A thin veil of intact tissue was excised over the bone for suture anchor placement, which revealed in the moderately sized extent of the frayed now complete anterior portion mildly retracted gluteus medius tear. The traction stitch was used to elevate tissue while the bone was prepared removing chronic fibrinous tissue and abraded to optimize tendon healing. The degenerative and frayed tendon was lightly abraded as well to a more stable margin. The initial's traction stitch was removed. The self retrieving suture passer was used to place widely and deeply inverted horizontal mattress suture with FiberTape. An additional suture tape cinch mode stitch was passed in a ripstop fashion between the ends of the suture. Appropriate tissue control was confirmed. The undersized punch and fluoroscopic guidance was used to localize placement of a suture anchor. A 4.75 mm knotless SwiveLock anchor was then deployed with appropriate tension on the repair sutures and reasonable tissue and bony fixation. The knotless repair suture was then used to secure the hypermobile gluteus minimus more anteriorly with a simple stitch configuration. The hip was taken through range of motion and the repair probed and demonstrated good reduction and tissue repair fixation. Suction was used to remove fluid from the endoscopic space. The portals were closed using 3-0 Monocryl in a buried fashion. Steri-Strips were applied over the incisions followed by Xeroform, 4 x 4 gauze, an ABD pad, and secured with tape. The patient awoke from anesthesia without complication and was transferred to the recovery room in a stable condition.
[2022-06-13] MEDS: fentaNYL 100 MCG/2 ML VIAL IVP ×2 (10:11→10:44)
--- NOTE | 2022-06-13 10:12 | W.PM.DSUDISC ---
Date of service: 06/13/22 Time of Service: 10:12 Discharge Plan Disposition Patient Disposition: HOME Condition: Stable Discharge Details Reason For Visit: Right hip surgery Attending Provider: David Soler Primary Care Provider: Meredith Feldman Home Meds and New Rx's Prescriptions: New naproxen 250 mg tablet 250 - 500 mg PO BID PRNQty: 20 0RF Rx Instructions: take with a meal aspirin 81 mg tablet,delayed release (DR/EC) 81 mg PO DAILY 14 Days Qty: 14 0RF oxycodone 5 mg tablet 5 - 10 mg PO Q4H MDD 30 mg PRN (Reason: moderate to severe pain) Qty: 12 0RF Continued multivitamin [Daily Multi-Vitamin] tablet 1 tab PO DAILY pantoprazole [Protonix] 40 mg tablet,delayed release (DR/EC) 40 mg PO DAILY Qty: 30 12RF fluticasone propionate [Flovent HFA] 110 mcg/actuation HFA aerosol inhaler 2 puff IH BID PRN acetaminophen 500 mg capsule 1,000 mg PO Q8H PRN PRN (Reason: pain) Qty: 60 0RF fluoxetine [Prozac] 40 MG capsule 40 mg PO HS mometasone [Nasonex] 17 GM spray,non-aerosol 2 spray intranasal PRN PRN (Reason: ALLERGIES) cholecalciferol (vitamin D3) [Vitamin D3] 25 mcg (1,000 unit) Capsule 25 mcg PO DAILY meclizine 25 mg tablet 25 mg PO TID PRN (Reason: dizziness) Qty: 14 0RF loratadine 10 mg Tablet 10 mg PO DAILY lisinopril 40 mg tablet 40 mg PO DAILY Discontinued ibuprofen 600 mg tablet 600 mg PO TID PRN (Reason: pain) Qty: 30 0RF Discharge Instructions Additional Instructions: Surgery: Right hip endoscopy with iliotibial band release, trochanteric bursectomy, and gluteal tendon repair Activity: Protected weightbearing with a walker for 6 weeks. Gentle hip range of motion. No strengthening for 3 months. A physical therapy prescription will be sent electronically to begin in about 3 weeks. Prescriptions: Aspirin 81 mg take 1 daily to prevent a blood clot for 2 weeks Naproxen 250 mg take 1-2 every 12 hours with a meal as needed for moderate pain Oxycodone 5 mg take 1-2 every 4-6 hours as needed for severe pain You may use [id number] Tylenol (acetaminophen) as needed for mild pain. These pain medications may be taken all at once or in different combinations as needed. Also, recommend Colace (docusate) as a stool softener as surgery and pain medicine cause constipation. You may try [id number] diphenhydramine (Benadryl) 25-50 mg nightly as a sleep aid Dressings: Leave dressing in place for 3 days. May then remove and leave open to air or cover incisions with Band-Aids. May shower after 5 days. Follow-up: 10-[address] Soler You may take off the leg compression stockings this evening at home. You may also leave them on a few days longer if you have a history of leg swelling or edema. Let us know right away if you develop any redness, drainage, fevers, chest pain, or trouble breathing. Do not drink alcohol or drive for at least 24 hours after anesthesia. Please call the office during business hours with any questions or concerns. Discharge Orders Discharge Orders: Discharge Order (Routine); Ordered 06/13/22 Ordered By: David Soler DS: Diagnosis Discharge Diagnosis (1) Trochanteric bursitis, right hip: Status: Acute (2) Tear of right gluteus medius tendon: Status: Acute (3) Iliotibial band syndrome of right side: Status: Acute
--- NOTE | 2022-06-13 10:48 | W.ANESPOSTOP ---
Postoperative Evaluation Date, Time and Location Date Performed: 06/13/22 Time Performed: 10:35 Patient Location: PACU Vital Signs Most Recent Imported Vital Signs: Most Recent Vital Signs Temp Pulse Resp BP Pulse Ox 36.3 C L 67 14 112/61 99 06/13/22 10:25 06/13/22 10:25 06/13/22 10:25 06/13/22 10:25 06/13/22 10:25 Pain Score Most Recent Pain Score: Most Recent Pain Score Pain Level 6 06/13/22 10:25 Assessment Mental Status: Awake (Alert & Oriented to Patient Baseline) Airway and Respiratory Function: Patent airway with normal (patient baseline) respiratory exam Cardiovascular Function: Hemodynamically Stable Hydration Status: Adequately Hydrated Nausea & Vomiting: No Nausea or Vomiting Pain: Pain is tolerable per patient Peripheral Nerve Block: Patient did not receive a nerve block
[2022-06-13] MEDS: oxyCODONE 5 MG TAB PO (11:21)
[2022-06-13] MEDS: EPINEPHrine 30 MG/30 ML VIAL (15:09)
== END 2022-06-13 13:45 | disposition home or self-care (01) ==
PROVIDERS: PCP Nurse Practitioner Family; Visit Provider Student in an Organized Health Care Education/Training Program
PROC: (CPT 29863; principal; 2022-06-13 07:30)
DX: M70.61 Trochanteric bursitis, right hip (principal); M76.31 Iliotibial band syndrome, right leg; S76.011A Strain of muscle, fascia and tendon of right hip, initial encounter; X58.XXXA Exposure to other specified factors, initial encounter; I10 Essential (primary) hypertension; K21.9 Gastro-esophageal reflux disease without esophagitis
CPT/HCPCS: 27062; 27305; 27006; 73501; J0131; J1100; J1885; J2405; J2704; J3010

== ENCOUNTER → 2022-06-25 10:55 | Outpatient (BNVA) | payer MEDICARE, BC, SELFPAY | PROVIDERS: PCP Nurse Practitioner Family; Referring Provider Nurse Practitioner Family; Visit Provider Student in an Organized Health Care Education/Training Program | DX: S76.011D Strain of muscle, fascia and tendon of right hip, subsequent encounter (principal); X58.XXXD Exposure to other specified factors, subsequent encounter; M70.61 Trochanteric bursitis, right hip; M76.31 Iliotibial band syndrome, right leg ==

== ENCOUNTER → 2022-08-13 10:28 | Outpatient (BNVA) | payer MEDICARE, BC, SELFPAY | PROVIDERS: PCP Nurse Practitioner Family; Referring Provider Nurse Practitioner Family; Visit Provider Student in an Organized Health Care Education/Training Program | DX: Z47.89 Encounter for other orthopedic aftercare (principal); M70.61 Trochanteric bursitis, right hip ==

== ENCOUNTER 2022-09-20 17:11 | Outpatient (REF) | payer MEDICARE, BC, SELFPAY ==
[2022-09-22 13:22] LABS: COVID-19 RT-PCR UVMMC Result Negative (Negative)
== END 2022-09-20 17:12 | disposition home or self-care (01) ==
LOC: LBN 17:11
PROVIDERS: PCP Nurse Practitioner Family; Visit Provider Physician Assistant Medical
DX: Z20.822 Contact with and (suspected) exposure to COVID-19 (principal); R05.8 Other specified cough
CPT/HCPCS: U0003

== ENCOUNTER → 2022-10-08 09:53 | Outpatient (BNVA) | payer MEDICARE, BC, SELFPAY | PROVIDERS: PCP Nurse Practitioner Family; Referring Provider Nurse Practitioner Family; Visit Provider Student in an Organized Health Care Education/Training Program | DX: M70.61 Trochanteric bursitis, right hip (principal); S76.011D Strain of muscle, fascia and tendon of right hip, subsequent encounter; X58.XXXD Exposure to other specified factors, subsequent encounter | CPT/HCPCS: 99213 ==

== ENCOUNTER 2022-12-20 13:10 | Outpatient (REF) | payer MEDICARE, BC, SELFPAY ==
[2022-12-20 15:58] LABS: Source Nasal/Nares
[2022-12-20 17:29] LABS: COVID-19 PCR Negative (Negative)
== END 2022-12-20 13:11 | disposition home or self-care (01) ==
LOC: LBN 13:10
PROVIDERS: PCP Nurse Practitioner Family; Visit Provider Physician Assistant Medical
DX: J02.9 Acute pharyngitis, unspecified (principal); Z20.822 Contact with and (suspected) exposure to COVID-19
CPT/HCPCS: 87635; 87070

== ENCOUNTER 2023-01-09 14:49 | Outpatient (REF) | payer MEDICARE, BC, SELFPAY ==
[2023-01-09 16:23] LABS: BUN 17 mg/dL (7-18); CREATININE 0.9 mg/dL (0.55-1.02); Calcium 9.3 mg/dL (8.5-10.1); Chloride 104 mmol/L (98-107); Glucose 105 mg/dL (74-106); Magnesium 1.8 mg/dL (1.8-2.4); Potassium 4.6 mmol/L (3.5-5.1); Sodium 141 mmol/L (136-145); Vitamin B12 1070 pg/mL (193-986)
[2023-01-09 17:47] LABS: Vitamin D 25 Total 33.8 ng/mL (30-100)
== END 2023-01-09 14:50 | disposition home or self-care (01) ==
LOC: NCHCN 14:49
PROVIDERS: PCP Nurse Practitioner Family; Visit Provider Nurse Practitioner Family
DX: F32.89 Other specified depressive episodes (principal); N28.9 Disorder of kidney and ureter, unspecified; I25.10 Atherosclerotic heart disease of native coronary artery without angina pectoris; K21.9 Gastro-esophageal reflux disease without esophagitis; E66.9 Obesity, unspecified; M85.88 Other specified disorders of bone density and structure, other site; N39.46 Mixed incontinence; Z86.39 Personal history of other endocrine, nutritional and metabolic disease
CPT/HCPCS: 80048; 82306; 82607; 83735; 87086

== ENCOUNTER 2023-02-12 01:04 | Outpatient (CLI) | payer MEDICARE, BC, SELFPAY ==
--- NOTE | 2023-02-12 | DI.MAMMO_ITS ---
Exam(s) MAMMO SCREENING EXAM: MAMMO SCREENING CLINICAL HISTORY: SCREENING EXAM FOR BREAST CANCER Z12.39 TECHNIQUE: Mammograms were interpreted according to the usual protocol including computer analysis w [employer] CAD system, tomosynthesis and C-view imaging. COMPARISON: [id number] FINDINGS: The breasts are composed of heterogeneously dense fibroglandular densities, Breast Density category C . No suspicious masses or suspicious microcalcifications are seen. Coarse calcifications again noted b ilaterally. No skin thickening or abnormal axillary lymph nodes are seen. There has been no significant change from prior exams. IMPRESSION: BI-RADS Cat 2 - Benign Findings Yearly screening mammography is recommended. Breast Density Category C, heterogeneously Dense. The mammogram demonstrates the patient's breast tissue is dense. Dense breast tissue is very common a nd is not abnormal but dense breast tissue can make it harder to find cancer on a mammogram. Also, de nse breast tissue may increase breast cancer risk. This information about the result of the mammogram report was provided to the patient to raise their awareness. Use this report when you speak with the patient about their risks for breast cancer, which includes their family history. At that time, you may recommend additional screening tests (Ultrasound or MRI) as they might be useful based on their r isk. A negative radiographic report should not delay biopsy if a dominant or clinically suspicious mass is present. Up to ten percent of cancers are not identified on mammography. A negative report may reinforce clinical impression. Adenosis and dense breasts may obscure an underlying neoplasm. False positive reports average 6 to 10%.
== END 2023-02-12 01:24 ==
LOC: DI 01:07
PROVIDERS: PCP Nurse Practitioner Family; Visit Provider Nurse Practitioner Family
DX: Z12.31 Encounter for screening mammogram for malignant neoplasm of breast (principal)
CPT/HCPCS: 77063; 77067

== ENCOUNTER 2023-10-19 07:35 | Emergency (ER) | payer MEDICARE, BC, SELFPAY ==
[2023-10-19 07:39] VITALS: BP 201/82; PULSE 85; RESP 18; TEMP 36.6; O2SAT 99
--- NOTE | 2023-10-19 07:45 | DI.CT_ITS ---
Exam(s) CT HEAD WO EXAM: CT HEAD WO CLINICAL HISTORY: fall. TECHNIQUE: Imaging Protocol: Axial computed tomography images with coronal and sagittal reformatted images were created and reviewed COMPARISON: CT CT HEAD CERVICAL SPINE WO from 10/28/2019 FINDINGS: There is a very large left frontal scalp hematoma. No subjacent skull fracture identified. There ar e surgical defects again noted in the medial bledsoe of both maxillary sinuses. There is significant m ucosal disease in the paranasal sinuses which has progressed from 2020. There is mucosal thickening in both maxillary sinuses as well as mucosal thickening and mucous within both sphenoid sinuses. Als o mucosal thickening in ethmoidal air cells and frontal sinuses. Mastoid air cells are now completel y opacified. There is no evidence of intracranial hemorrhage, mass effect, or shift of midline structures. There are no extra-axial fluid collections. The ventricles are not enlarged or shifted and there is no blo od within the ventricular system nor within the basal cisterns. IMPRESSION: Large left frontal scalp hematoma. No skull fracture. No evidence of intracranial hemorrhage. Progression of paranasal sinus disease when compared to October 2019. Report called by myself to ER physician RADIATION DOSE DELIVERED: 716.42mGy.cm Total DLP DATA REPOSITORY: All CT scans at this facility are submitted to the National Radiology Data Registry (NRDR) Dose Index Registry (DIR) with the [employer] ([employer]). RADIATION OPTIMIZATION: All CT scans at this facility use at least one of these dose optimization te chniques: automated exposure control; mA and/or kV adjustment per patient size (includes targeted exa ms where dose is matched to clinical indication); or iterative reconstruction.
--- NOTE | 2023-10-19 07:51 | ED.GENADUL_ITS ---
Discharge Plan Disposition Patient Disposition: Home Discharge Details Clinical Impression: Traumatic hematoma of forehead, Closed head injury Primary Care Provider: Meredith Feldman ED Provider: Abiel Bhandari Home Meds and New Rx's Prescriptions: No Action multivitamin [Daily Multi-Vitamin] tablet 1 tab PO DAILY pantoprazole [Protonix] 40 mg tablet,delayed release (DR/EC) 40 mg PO DAILY Qty: 30 12RF mecobalamin (vitamin B12) 1,000 mcg tablet,chewable 1,000 mcg PO DAILY fluticasone propionate [Flovent HFA] 110 mcg/actuation HFA aerosol inhaler 2 puff IH BID PRN acetaminophen 500 mg capsule 1,000 mg PO Q8H PRN PRN (Reason: pain) Qty: 60 0RF naproxen 250 mg tablet 250 - 500 mg PO BID PRN (Reason: pain, moderate) Qty: 30 0RF Rx Instructions: take with a meal fluoxetine [Prozac] 40 MG capsule 40 mg PO HS mometasone [Nasonex] 17 GM spray,non-aerosol 2 spray intranasal PRN PRN (Reason: ALLERGIES) cholecalciferol (vitamin D3) [Vitamin D3] 25 mcg (1,000 unit) Capsule 25 mcg PO DAILY meclizine 25 mg tablet 25 mg PO TID PRN (Reason: dizziness) Qty: 14 0RF loratadine 10 mg Tablet 10 mg PO DAILY lisinopril 40 mg tablet 40 mg PO DAILY Discharge Instructions Instructions: Hematoma (ED) Additional Instructions: Continue compression dressing and applying ice pack throughout the day today. This should help limit the amount of swelling. Take Tylenol as needed for pain. You may notice over the next few days that the swelling and bruising will settle into your face, this is a normal result of gravity. If he starts to develop any signs of infection in this large hematoma area please return to the emergency department for reevaluation HPI General Date/Time Provider Initiated Documentation: 10/19/23 07:50 . Limitations to Documentation: no limitations . Information obtained by: patient . HPI Narrative: 68-year-old female without significant past medical history presents for evaluation after a fall. Just prior to arrival, the patient tripped over an extension cord and fell striking her head on the chair. She denies loss of consciousness. She reports large swelling noted on her forehead. She reports significant pain there. Denies any other pains or injuries from the fall. She is not on any blood thinners or aspirin. Related Data Home Medications Medication Instructions Recorded Confirmed fluoxetine 40 mg capsule (Prozac) 40 mg PO HS 12/04/15 10/19/23 mometasone 50 mcg/actuation nasal 2 spray intranasal PRN PRN 12/04/15 10/19/23 spray (Nasonex) ALLERGIES multivitamin (Daily Multi-Vitamin 1 tab PO DAILY 01/18/19 10/19/23 tablet) fluticasone propionate 110 2 puff inhalation BID PRN 01/24/19 10/19/23 mcg/actuation HFA aerosol inhaler (Flovent HFA) pantoprazole 40 mg tablet,delayed 40 mg PO DAILY #30 tabs 01/24/19 10/19/23 release (Protonix) meclizine 25 mg tablet 25 mg PO TID PRN dizziness #14 tabs 10/28/19 10/19/23 loratadine 10 mg tablet 10 mg PO DAILY 01/11/20 10/19/23 cholecalciferol (vitamin D3) 25 25 mcg PO DAILY 10/10/20 10/19/23 mcg (1,000 unit) capsule (Vitamin D3) acetaminophen 500 mg capsule 1,000 mg (2 x 500 mg) PO Q8H PRN 05/29/21 10/19/23 PRN pain #60 caps lisinopril 40 mg tablet 40 mg PO DAILY 04/30/22 10/19/23 naproxen 250 mg tablet 250 - 500 mg (1 - 2 x 250 mg) PO 06/17/22 10/19/23 BID PRN pain, moderate #30 tabs mecobalamin (vitamin B12) 1,000 1,000 mcg PO DAILY 06/25/22 10/19/23 mcg chewable tablet Previous Rx's Medication Instructions Recorded pantoprazole 40 mg tablet,delayed 40 mg PO DAILY #30 tabs 01/24/19 release (Protonix) meclizine 25 mg tablet 25 mg PO TID PRN dizziness #14 tabs 10/28/19 acetaminophen 500 mg capsule 1,000 mg (2 x 500 mg) PO Q8H PRN 05/29/21 PRN pain #60 caps naproxen 250 mg tablet 250 - 500 mg (1 - 2 x 250 mg) PO 06/17/22 BID PRN pain, moderate #30 tabs Allergies Allergy/AdvReac Type Severity Reaction Status Date / Time cefaclor [From Ceclor] Allergy Severe Anaphylaxsi Verified 10/19/23 07:41 s cefuroxime axetil Allergy Severe Anaphylaxsi Verified 10/19/23 07:41 [From Ceftin] s Sulfa (Sulfonamide Allergy Intermediate Hives Verified 10/19/23 07:41 Antibiotics) General Stated Complaint: HeadInjury PARTH: 3 Exam Narrative Exam Narrative: Review of Systems: All systems reviewed & are unremarkable except as noted in HPI and below Well-developed, no acute distress Large hematoma over the left forehead PERRL, normal conjunctiva RRR Unlabored respiratory effort Nondistended abdomen Extremities w/o deformity, no cyanosis, no edema No rashes or lesions. no focal neurologic deficits Appropriate mood and affect Course Vital Signs Vital signs: Vital Signs Temperature 36.6 C 10/19/23 07:39 Pulse 85 10/19/23 07:39 Respiratory Rate 18 10/19/23 07:39 Blood Pressure 201/82 H 10/19/23 07:39 Pulse Oximetry 99 10/19/23 07:39 Temperature 36.6 C 10/19/23 07:39 Temperature Source Temporal Artery Scan 10/19/23 07:39 Pulse 85 10/19/23 07:39 Respiratory Rate 18 10/19/23 07:39 Respiratory Effort Normal, Non-Labored 10/19/23 07:43 Blood Pressure 201/82 H 10/19/23 07:39 Blood Pressure Position Sitting 10/19/23 07:39 Pulse Oximetry 99 10/19/23 07:39 Oxygen Delivery Method Room Air 10/19/23 07:39 Oxygen Flow Rate 0 10/19/23 07:39 Medical Decision Making Emergent evaluation of head trauma. Initial differential includes contusion, hematoma, skull fracture, doubt intracranial injury. Fall was mechanical, not syncopal, no loss of consciousness. Not on any blood thinners. Will give Tylenol for pain relief and get CT imaging. Head CT demonstrates significantly large hematoma without any evidence of skull fracture or intracranial bleeding. Discussed compression wrap and ice therapy with the patient. Appropriate pain control at home. Given the hematoma size, high risk for becoming infected. Discussed signs of this and return precautions with the patient. 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; pt underwent open RSO, L salpingectomy at [facility] [place] by Dr Yeboha for adnexal mass plus stranding of colon; benign path Bilateral acromioclavicular joint arthritis (Chronic 07/29/17) Anemia (Acute) S/P colonoscopy (Acute ~02/22/19) Diverticulosis (Acute ~02/22/19) Cystocele with rectocele (Acute) planned procedure anterior posterior colporraphy explained to patient r/b/a reviewed including risks of bleeding infection injury bowel bladder ureters discussed failure rates both short and [employer] discussed importnce of no heavy lifting x 6 weeks postop H/O rectocele repair (Acute) and Cystocele repair 04/27/2019 Status post right rotator cuff repair (Acute 07/06/19) Arthritis of carpometacarpal (CMC) joint of right thumb (Acute) Status post left rotator cuff repair (Acute 01/18/20) Ganglion cyst of volar aspect of right wrist (Acute) Tenosynovitis of right wrist (Acute 10/10/20) Excision of tenosynovitis from right wrist FCR tendon Mallet toe of right foot (Acute) Iliotibial band syndrome of right side (Acute) Tear of right gluteus medius tendon (Acute) Medical History History of cystocele repair Cataract 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 states it was related to when she had her ovaries out, and related to the removal per pt. Hypertension GERD (gastroesophageal reflux disease) IBS (irritable bowel syndrome) History of substance abuse Nephropathy PTSD (post-traumatic stress disorder) Major depression Obesity Pneumonia Asthma Dizziness Fatigue Surgical History History of foot surgery hammer toe repair History of sinus surgery Status post trigger finger release History of carpal tunnel release S/P excision of lipoma H/O oophorectomy History of colonoscopy Family History Father Cancer Aunt Cancer Mother Heart disease Maternal Cousin Diabetes Social History Smoking/Tobacco Use Status: Never Smoking risk assessment performed?: Yes Alcohol Intake: former Drug use: Current Sobriety Substance use type: former substance user Current gender identity: female Seatbelt use: always Do you feel safe at home: Yes Do you feel safe in your relationship?: Yes Female Reproductive History Menstrual Menopause type: natural
[2023-10-19] MEDS: Acetaminophen 500 MG TAB 1000 MG PO (07:57)
[2023-10-19 09:06] VITALS: BP 196/79; PULSE 73; RESP 16; O2SAT 98
== END 2023-10-19 09:08 | disposition home or self-care (01) ==
PROVIDERS: Emergency Provider Emergency Medicine; PCP Nurse Practitioner Family
DX: S00.83XA Contusion of other part of head, initial encounter (principal); W01.190A Fall on same level from slipping, tripping and stumbling with subsequent striking against furniture, initial encounter
CPT/HCPCS: 99284; 70450

== ENCOUNTER 2023-11-20 15:35 | Outpatient (REF) | payer MEDICARE, BC, SELFPAY ==
[2023-11-20 21:33] LABS: Bilirubin Negative (Negative); Blood Negative (Negative); Clarity Sl Cloudy (Clear); Glucose Negative (Negative); Ketones Negative (Negative); Leukocyte Esterase Negative (Negative); Nitrite Negative (Negative); Specific Gravity 1.015 (1.005-1.025); Urobilinogen 0.2 mg/dL (Up to 0.2); pH 5.5 (5-8)
[2023-11-20 21:45] LABS: COMMENT (LAB VIEW ONLY) 81.43 mg/dL; Hemoglobin A1C 5.8 % (<5.7); Microalb ug/mg Crea 84.2 ug/mg Cr
[2023-11-20 22:04] LABS: ALT 20 U/L (14-59); AST 14 U/L (15-37); Albumin 3.8 g/dL (3.4-5.0); Alkaline Phosphatase 87 U/L (46-116); Anion Gap 10.8 mmol/L (3-11); BUN 15 mg/dL (7-18); Bilirubin, Total 0.3 mg/dL (0.2-1.0); CO2 24.2 mmol/L (21.0-32.0); CREATININE 0.9 mg/dL (0.55-1.02); Calcium 9.3 mg/dL (8.5-10.1); Calculated LDL 66 mg/dL (<100); Chloride 106 mmol/L (98-107); Cholesterol 188 mg/dL (<200); Estimated GFR 68.77 (mL/min/1.73m2); Glucose 129 mg/dL (74-106); HDL Cholesterol 75 mg/dL (40-60); Magnesium 1.9 mg/dL (1.8-2.4); Potassium 4.4 mmol/L (3.5-5.1); Sodium 141 mmol/L (136-145); Total Protein 6.9 g/dL (6.4-8.2); Triglyceride 239 mg/dL (<150); Vitamin B12 459 pg/mL (193-986)
[2023-11-20 22:42] LABS: Vitamin D 25 Total 28.4 ng/mL (30-100)
== END 2023-11-20 15:36 | disposition home or self-care (01) ==
LOC: NCHCN 15:35
PROVIDERS: PCP Nurse Practitioner Family; Visit Provider Nurse Practitioner Family
DX: I10 Essential (primary) hypertension (principal); E66.9 Obesity, unspecified; M85.80 Other specified disorders of bone density and structure, unspecified site; K21.9 Gastro-esophageal reflux disease without esophagitis; R30.0 Dysuria
CPT/HCPCS: 80053; 80061; 82306; 81003; 82043; 82570; 82607; 83036; 83735

== ENCOUNTER → 2024-01-06 15:42 | Outpatient (CLI) | payer MEDICARE, BC, SELFPAY ==
--- NOTE | 2024-01-06 | DI.RAD_ITS ---
Exam(s) XR FOOT RT COMPLETE EXAM: XR FOOT RT COMPLETE CLINICAL HISTORY: PAIN RT FOOT, M79.671. TECHNIQUE: 2D digital imaging was performed of the right foot. Three images were obtained. AP, obl ique and lateral views were obtained. COMPARISON: No exams were available for comparison FINDINGS: BONES: There is a cortical lucency at the lateral aspect of the distal diaphysis of the 2nd metatarsa l bone which may represent a nondisplaced fracture. Please correlate clinically. No bony destructiv e lesion is seen. There is a small plantar calcaneal spur. JOINTS: No dislocation present. Degenerative changes are seen in the foot. SOFT TISSUE: Vascular calcifications are present. IMPRESSION: Question of a nondisplaced fracture of the distal diaphysis of the 2nd metatarsal bone. Please corre late the patient's clinical history. DATA REPOSITORY: RADIATION DOSE DELIVERED:
== END ==
PROVIDERS: PCP Nurse Practitioner Family; Visit Provider Physician Assistant Medical
DX: M79.671 Pain in right foot (principal)
CPT/HCPCS: 73630

== ENCOUNTER → 2024-01-26 14:18 | Outpatient (BNVA) | payer MEDICARE, BC, SELFPAY | PROVIDERS: PCP Nurse Practitioner Family; Referring Provider Nurse Practitioner Family; Visit Provider Podiatrist | DX: M79.671 Pain in right foot (principal); M84.374A Stress fracture, right foot, initial encounter for fracture; S90.31XA Contusion of right foot, initial encounter; R73.03 Prediabetes; W20.8XXA Other cause of strike by thrown, projected or falling object, initial encounter | CPT/HCPCS: 29580; 29850 ==

== ENCOUNTER → 2024-02-22 02:03 | Outpatient (CLI) | payer MEDICARE, BC, SELFPAY ==
--- NOTE | 2024-02-22 09:22 | DI.RAD_ITS ---
Exam(s) XR FOOT RT COMPLETE EXAM: XR FOOT RT COMPLETE CLINICAL HISTORY: ?Fracture, right second metatarsal,STRESS FX,CONTUSION,S90.31XA,M84.374A,S9. TECHNIQUE: 2D digital imaging was performed. COMPARISON: CR XR FOOT RT COMPLETE from 01/06/2024 FINDINGS: 3 views There is a mildly displaced healing fracture site in the distal diaphysis of the 2nd toe metatarsal. Significant callus formation evident at this level. These findings were not evident on 01/06/2024. No other fracture sites identified. Moderate size inferior calcaneal spur is again noted. IMPRESSION: Mildly displaced fracture just proximal to the neck of the 2nd metatarsal. A prominent local callus formation. DATA REPOSITORY: RADIATION DOSE DELIVERED:
== END ==
PROVIDERS: PCP Nurse Practitioner Family; Visit Provider Podiatrist
DX: S92.309A Fracture of unspecified metatarsal bone(s), unspecified foot, initial encounter for closed fracture (principal); M84.374A Stress fracture, right foot, initial encounter for fracture; S90.31XA Contusion of right foot, initial encounter
CPT/HCPCS: 73630

== ENCOUNTER → 2024-03-15 01:06 | Outpatient (CLI) | payer MEDICARE, BC, SELFPAY ==
--- NOTE | 2024-03-15 10:23 | DI.RAD_ITS ---
Exam(s) XR FOOT RT COMPLETE EXAM: XR FOOT RT COMPLETE CLINICAL HISTORY: Fracture second metatarsal,stress fx,s90.31xa,s92.309a,m84.374,contusion. TECHNIQUE: 2D digital imaging was performed of the right foot. Four images were obtained. AP, obli que and lateral views were obtained. COMPARISON: CR XR FOOT RT COMPLETE from 01/06/2024 CR XR FOOT RT COMPLETE from 02/22/2024 FINDINGS: BONES: There has been no change in alignment of the fracture involving the right 2nd metatarsal bone. Exuberant callus formation has developed about the fracture site. No bony destructive lesion is se en. There is a small plantar calcaneal spur. JOINTS: No dislocation present. SOFT TISSUE: Normal. IMPRESSION: No change in alignment of the healing right 2nd metatarsal fracture. DATA REPOSITORY: RADIATION DOSE DELIVERED:
== END ==
PROVIDERS: PCP Nurse Practitioner Family; Visit Provider Podiatrist
DX: S92.309A Fracture of unspecified metatarsal bone(s), unspecified foot, initial encounter for closed fracture (principal); S90.31XA Contusion of right foot, initial encounter
CPT/HCPCS: 73630

== ENCOUNTER 2024-05-12 01:16 | Outpatient (CLI) | payer MEDICARE, BC, SELFPAY ==
--- NOTE | 2024-05-12 06:15 | DI.RAD_ITS ---
Exam(s) XR FOOT RT COMPLETE EXAM: XR FOOT RT COMPLETE CLINICAL HISTORY: Consolidation? M84.374A STRESS FX RT FOOT. TECHNIQUE: 2D digital imaging was performed. COMPARISON: CR XR FOOT RT COMPLETE from 03/15/2024 FINDINGS: 3 views There has been further healing at the fracture no additional fractures identified. No diastasis of t he Lisfranc joint. Site with increased callus formation in the distal half of the 2nd metatarsal. N o further displacement. IMPRESSION: Further callus formation at the fracture site just proximal to the neck of the 2nd metatarsal DATA REPOSITORY: RADIATION DOSE DELIVERED:
== END 2024-05-12 01:36 ==
PROVIDERS: PCP Nurse Practitioner Family; Visit Provider Podiatrist
DX: S92.321D Displaced fracture of second metatarsal bone, right foot, subsequent encounter for fracture with routine healing (principal); X58.XXXD Exposure to other specified factors, subsequent encounter
CPT/HCPCS: 73630

== ENCOUNTER 2024-09-26 13:56 | Outpatient (CLI) | payer MEDICARE, BC, SELFPAY ==
--- NOTE | 2024-09-26 | DI.RAD_ITS ---
Exam(s) XR CHEST 2V PA LATERAL EXAM: XR CHEST 2V PA LATERAL CLINICAL HISTORY: R05.9 Cough,unspecified TECHNIQUE: 2D digital imaging was performed. Two views. COMPARISON: No exams were available for comparison FINDINGS: HEART: Normal size. Aorta: Not dilated. PULMONARY VASCULATURE: Normal. MEDIASTINUM: Unremarkable. LUNGS: Clear. PLEURAL SPACE: No pleural effusion or pneumothorax. BONE:Unremarkable for age. SOFT TISSUES: Unremarkable. IMPRESSION: No acute abnormality. DATA REPOSITORY: RADIATION DOSE DELIVERED:
== END 2024-09-26 14:16 ==
LOC: DI 13:57
PROVIDERS: PCP Nurse Practitioner Family; Visit Provider Nurse Practitioner Family
DX: R05.9 Cough, unspecified (principal)
CPT/HCPCS: 71046

== ENCOUNTER 2024-10-28 15:13 | Outpatient (REF) | payer MEDICARE, BC, SELFPAY ==
[2024-10-28 16:16] LABS: Bilirubin Negative (Negative); Blood Negative (Negative); Clarity Clear (Clear); Glucose Negative (Negative); Ketones Negative (Negative); Leukocyte Esterase Trace (Negative); Nitrite Negative (Negative); Urobilinogen 0.2 mg/dL (Up to 0.2)
[2024-10-28 16:22] LABS: Bacteria Negative HPF (Negative); C & S Indicated? No/Sq. Contamination; Casts Negative LPF (Negative); Crystals Negative HPF (Negative); Epithelial Cells Few HPF (Negative); Mucus Negative (Negative); RBC Negative HPF (0-2); WBC 0-2 HPF (0-5)
[2024-10-28 17:07] LABS: COMMENT (LAB VIEW ONLY) 124.77 mg/dL; Microalb ug/mg Crea 308.1 ug/mg Cr
[2024-10-28 17:10] LABS: ALT 21 U/L (14-59); AST 18 U/L (15-37); Albumin 3.5 g/dL (3.4-5.0); Alkaline Phosphatase 87 U/L (46-116); Anion Gap 8.5 mmol/L (3-11); BUN 21 mg/dL (7-18); Bilirubin, Total 0.4 mg/dL (0.2-1.0); CO2 25.5 mmol/L (21.0-32.0); Calculated LDL 72 mg/dL (<100); Chloride 109 mmol/L (98-107); Cholesterol 165 mg/dL (<200); Estimated GFR 60.23 (mL/min/1.73m2); Glucose 95 mg/dL (74-106); HDL Cholesterol 69 mg/dL (>or=50); Magnesium 2.1 mg/dL (1.8-2.4); Potassium 4.5 mmol/L (3.5-5.1); Sodium 143 mmol/L (136-145); Total Protein 6.6 g/dL (6.4-8.2); Triglyceride 124 mg/dL (<150); Vitamin B12 405 pg/mL (193-986); Vitamin D 25 Total 29 ng/mL (30-100)
== END 2024-10-28 15:14 | disposition home or self-care (01) ==
LOC: NCHCN 15:13
PROVIDERS: PCP Nurse Practitioner Family; Visit Provider Nurse Practitioner Family
DX: I10 Essential (primary) hypertension (principal); M85.89 Other specified disorders of bone density and structure, multiple sites
CPT/HCPCS: 80053; 80061; 82306; 81003; 81015; 82043; 82570; 82607; 83735

== ENCOUNTER 2025-06-13 13:29 | Outpatient (REF) | payer MEDICARE, BC, SELFPAY ==
[2025-06-13 15:57] LABS: Glucose Negative (Negative)
[2025-06-13 16:13] LABS: WBC 0-2 HPF (0-5)
[2025-06-13 16:14] LABS: C & S Indicated? No
[2025-06-13 16:46] LABS: ALT 21 U/L (14-59); AST 14 U/L (15-37); Albumin 3.6 g/dL (3.4-5.0); Alkaline Phosphatase 71 U/L (46-116); Anion Gap 9.8 mmol/L (3-11); BUN 18 mg/dL (7-18); Bilirubin, Total 0.4 mg/dL (0.2-1.0); CO2 26.2 mmol/L (21.0-32.0); Calcium 8.8 mg/dL (8.5-10.1); Calculated LDL 72 mg/dL (<100); Chloride 106 mmol/L (98-107); Cholesterol 170 mg/dL (<200); Estimated GFR 91.83 (mL/min/1.73m2); Glucose 101 mg/dL (74-106); HDL Cholesterol 71 mg/dL (>or=50); Potassium 4.1 mmol/L (3.5-5.1); Sodium 142 mmol/L (136-145); Total Protein 6.4 g/dL (6.4-8.2); Triglyceride 138 mg/dL (<150); Vitamin D 25 Total 39 ng/mL (30-100)
[2025-06-13 17:53] LABS: COMMENT (LAB VIEW ONLY) 172.97 mg/dL
== END 2025-06-13 13:30 | disposition home or self-care (01) ==
LOC: NCHCN 13:29
PROVIDERS: PCP Nurse Practitioner Family; Visit Provider Nurse Practitioner Family
DX: I10 Essential (primary) hypertension (principal); M85.80 Other specified disorders of bone density and structure, unspecified site
CPT/HCPCS: 80053; 80061; 82306; 81003; 81015; 82043; 82570

== ENCOUNTER 2025-06-22 14:41 | Outpatient (CLI) | payer MEDICARE, BC, SELFPAY ==
--- NOTE | 2025-06-22 14:00 | DI.RAD_ITS ---
Exam(s) XR HIP RT COMPLETE AP PELVIS EXAM: XR HIP RT COMPLETE AP PELVIS CLINICAL HISTORY: RIGHT HIP PAIN. TECHNIQUE: 2D digital imaging was performed of the right hip. Two images were obtained. AP pelvis and lateral right hip views were obtained. COMPARISON: CR XR HIP RT COMPLETE AP PELVIS from 03/14/2022 FINDINGS: BONES: No acute fracture is present. No bony destructive lesion is seen. JOINTS: No dislocation present. The right hip joint is well maintained. SOFT TISSUE: Normal. Dystrophic calcifications are seen adjacent to the right greater trochanter. There is also enthesophyte arising from the right greater trochanter. There are surgical clips in the pelvis. IMPRESSION: Enthesophyte at the right greater trochanter. Otherwise unremarkable right hip. DATA REPOSITORY: RADIATION DOSE DELIVERED:
--- NOTE | 2025-06-22 14:15 | DI.RAD_ITS ---
Exam(s) XR HAND LT COMPLETE EXAM: XR HAND LT COMPLETE CLINICAL HISTORY: LEFT HAND PAIN. TECHNIQUE: 2D digital imaging was performed of the left hand. Three views were obtained. AP, lateral and oblique views were obtained. COMPARISON: There are no priors for comparison. FINDINGS: BONES: No acute fracture is present. No bony destructive lesion is seen. JOINTS: No dislocation present. There are moderately severe degenerative changes seen at the 1st CMC joint characterized by joint space narrowing and osteophytes. More mild degenerative changes are seen elsewhere in the hands particularly in the interphalangeal joints of the fingers. SOFT TISSUE: Normal. IMPRESSION: Moderately severe degenerative changes at the 1st CMC joint. More mild degenerative changes seen elsewhere in the left hand. DATA REPOSITORY: RADIATION DOSE DELIVERED:
== END 2025-06-22 14:42 | disposition home or self-care (01) ==
LOC: DIORS 14:42
PROVIDERS: PCP Nurse Practitioner Family; Referring Provider Nurse Practitioner Family; Visit Provider Student in an Organized Health Care Education/Training Program
DX: M70.61 Trochanteric bursitis, right hip (principal); S69.92XA Unspecified injury of left wrist, hand and finger(s), initial encounter; W18.41XA Slipping, tripping and stumbling without falling due to stepping on object, initial encounter; M18.12 Unilateral primary osteoarthritis of first carpometacarpal joint, left hand
CPT/HCPCS: 99214; 20610; J1010; 73130; 73502